=== PATIENT | female | born 1970 | race Caucasian/White ===

== ENCOUNTER → 2020-12-18 | Outpatient (CLI) | payer SELFPAY | END | disposition home or self-care (01) | LOC: LABWHC1 16:25 | PROVIDERS: ATTEND Orthopaedic Surgery | DX: T84.033A Mechanical loosening of internal left knee prosthetic joint, initial encounter (principal); T84.53XA Infection and inflammatory reaction due to internal right knee prosthesis, initial encounter | CPT/HCPCS: 36415; 85379; 85652; 86140 ==

== ENCOUNTER → 2020-12-31 | Outpatient (CLI) | payer OTHER | END | disposition home or self-care (01) | LOC: LABPAT 15:19 | PROVIDERS: ATTEND Orthopaedic Surgery | DX: Z53.9 Procedure and treatment not carried out, unspecified reason (principal) ==

== ENCOUNTER 2021-01-11 10:52 | Inpatient (IN) | payer OTHER ==
[2021-01-08 16:03] VITALS: BMI 44.6
[~2021-01-11 10:52] MED LIST: ACETAMINOPHEN TAB 500 MG TAB PO PRN; DEXAMETHASONE SOD PHOSPHATE 10 MG/ML 1 ML VIAL IV PRN; DEXAMETHASONE SOD PHOSPHATE 4 MG/ML 1 ML VIAL IV ONE; DOCUSATE 100 MG CAP PO PRN; FAMOTIDINE 20 MG/2 ML VIAL IVP PRN; HYDROmorphone 0.5 MG/0.5 ML SYRINGE IVP PRN; KETOROLAC 15 MG/ML 1 ML VIAL IVP PRN; MIDAZOLAM 2 MG/2 ML VIAL IV PRN; ONDANSETRON 4 MG/2 ML VIAL IVP ONE; ONDANSETRON 4 MG/2 ML VIAL IVP PRN; TRANEXAMIC ACID 1,000 MG in SODIUM CHLORIDE 0.9% 100 ML IVPB PRN; VANCOMYCIN 2,000 MG in SODIUM CHLORIDE 0.9% 500 ML 500 ML IVPB PRN; VANCOMYCIN IV PER PHARMACY 1 EACH MISC MISCELLANE PRN; oxyCODONE ER 10 MG TAB.ER.12H PO PRN
[2021-01-11] MEDS: LACTATED RINGERS 1,000 ML IV SCH (12:00)
[2021-01-11] MEDS ORDERED: KETOROLAC 15 MG/ML 1 ML VIAL IVP ONE ×2 (12:02→18:48)
[2021-01-11] MEDS ORDERED: KETOROLAC 30 MG/ML 1 ML VIAL ONE ×2 (12:11→18:46)
[2021-01-11] MEDS ORDERED: TRANEXAMIC ACID 1,000 MG in SODIUM CHLORIDE 0.9% 100 ML IVPB ONE (12:56)
[2021-01-11] MEDS ORDERED: LABETALOL 5 MG/ML VIAL MDV ONE (13:31)
[2021-01-11] MEDS ORDERED: SODIUM CHLORIDE 0.9% 100 ML BAG ONE (13:31)
[2021-01-11] MEDS ORDERED: ROCURONIUM 10 MG/ML (5 ML VIAL) IV ONE (13:31)
[2021-01-11] MEDS ORDERED: MIDAZOLAM 2 MG/2 ML VIAL ONE (13:31)
[2021-01-11] MEDS ORDERED: LIDOCAINE 1% INJ 10MG/ML (20 ML MDV) ONE (13:31)
[2021-01-11] MEDS ORDERED: fentaNYL (PF) 50 MCG/ML 2 ML AMP ONE (13:31)
[2021-01-11] MEDS ORDERED: hydrALAZINE HCL 20 MG/ML 1 ML VIAL ONE (13:31)
[2021-01-11] MEDS ORDERED: PHENYLEPHRINE-0.9% NACL SYG 1,000 MCG/10 ML SYRINGE ONE (13:31)
[2021-01-11] MEDS ORDERED: GLYCOPYRROLATE 0.2 MG/ML 2 ML VIAL ONE (13:31)
[2021-01-11] MEDS ORDERED: PROPOFOL 10 MG/ML 20 ML VIAL IV ONE (13:31)
[2021-01-11] MEDS ORDERED: ONDANSETRON 4 MG/2 ML VIAL ONE ×2 (13:31→18:41)
[2021-01-11] MEDS ORDERED: TRANEXAMIC ACID 1,000 MG/10 ML VIAL ONE (13:31)
[2021-01-11] MEDS ORDERED: NEOSTIGMINE 1 MG/ML 10 ML VIAL ONE (13:31)
[2021-01-11] MEDS ORDERED: SUCCINYLCHOLINE CHLORIDE 100 MG/5 ML SYR IV ONE (13:31)
[2021-01-11] MEDS ORDERED: LACTATED RINGERS 1,000 ML IV ONE (14:25)
[2021-01-11] MEDS: ROPIVACAINE/EPI/CLONIDINE/KET 50 ML SYRINGE MISCELLANE PRN ×3 (15:00→17:14)
[2021-01-11] MEDS ORDERED: VANCOMYCIN 1,000 MG VIAL MISCELLANE ONE ×3 (15:36→17:22)
[2021-01-11] MEDS ORDERED: VANCOMYCIN IV PER PHARMACY 1 EACH MISC MISCELLANE PRN (18:06)
[2021-01-11] MEDS ORDERED: NALOXONE 0.4 MG/ML 1 ML VIAL IV PRN (18:09)
--- NOTE | 2021-01-11 18:37 | XR ---
EXAMINATION TYPE: XR knee complete LT DATE OF EXAM: 01/11/2021 COMPARISON: NONE HISTORY: Postop TECHNIQUE: 2 views FINDINGS: There is a left knee prosthesis. I see no fracture nor dislocation. There is an anterior dr hicks. IMPRESSION: No complicating process seen.
[2021-01-11] MEDS ORDERED: ONDANSETRON 4 MG/2 ML VIAL IVP ONE (18:42)
[2021-01-11] MEDS ORDERED: HYDROmorphone 0.5 MG/0.5 ML SYRINGE IVP ONE (18:48)
[2021-01-11] MEDS ORDERED: HYDROmorphone 0.2 MG/1 ML SYRINGE IVP PRN (19:13)
[2021-01-11] MEDS ORDERED: HYDROmorphone 1 MG/ML 1 ML SYRINGE IVP PRN (19:13)
[2021-01-11] MEDS ORDERED: HYDROmorphone 0.5 MG/0.5 ML SYRINGE IVP PRN (19:13)
[2021-01-11] MEDS ORDERED: HYDROcodone/APAP 5-325MG 1 EACH TAB PO PRN ×2 (19:13)
[2021-01-11] MEDS ORDERED: diazePAM 2 MG TAB PO STA (20:12)
[2021-01-11] MEDS: HYDROmorphone 1 MG/ML 1 ML SYRINGE IVP PRN (20:31)
[2021-01-11] MEDS: PROCHLORPERAZINE INJ 10 MG/2 ML VIAL IVP PRN (23:06)
--- NOTE | 2021-01-12 00:05 | P.CONS ---
History of Present Illness - Reason for Consult Consult date: 01/11/21 medical management Requesting physician: Blue Montesinos - Chief Complaint scheduled left knee reviison - History of Present Illness 50 year old female with obesity comes in for left knee revision , post left total knee arthroplasty done August 2020, followed by a fall , and complicated with infection and loose orthosis . resulting in intractable pain for months with poor weight baring . patient otherwise, tolerated procedure, she is feeling emotional and anxious , but other husain reports that pain well tolerated, denies any chest pain or trouble breathing , she did not pass urine yet, but toelrating PO intake and denies any abd pain Review of Systems Pertinent positives as noted in HPI. All other systems were reviewed and are negative Past Medical History Past Medical History: Asthma, GERD/Reflux, Hearing Disorder / Deafness, Hypertension, Osteoarthritis (OA), Sleep Apnea/CPAP/BIPAP Additional Past Medical History / Comment(s): Poor hearing right ear. No CPAP use currently. "Recent dizziness and vomiting from anxiety and stress I think." History of Any Multi-Drug Resistant Organisms: MRSA Year Discovered:: 12/20 MDRO Source:: left knee Past Surgical History: Section, Hernia Repair, Joint Replacement, Orthopedic Surgery, Uterine Ablation Additional Past Surgical History / Comment(s): Bilateral knee replacements. Left knee surgery. Dental work. Umbilical hernia repair. Past Anesthesia/Blood Transfusion Reactions: No Reported Reaction Past Psychological History: Anxiety Smoking Status: Never smoker Past Alcohol Use History: None Reported Past Drug Use History: None Reported - Past Family History Mother Family Medical History: No Reported History Medications and Allergies Home Medications Medication Instructions Recorded Confirmed Type Cetirizine HCl [Zyrtec] 10 mg PO DAILY 01/08/21 01/11/21 History Desvenlafaxine Succinate [Pristiq] 100 mg PO QAM 01/08/21 01/11/21 History Hydrocodone/Acetaminphen - ?Mg 1 tab PO DIRECTED PRN 01/08/21 01/11/21 History Losartan Potassium 100 mg PO QAM 01/08/21 01/11/21 History Metoprolol Succinate (ER) [Toprol 25 mg PO QAM 01/08/21 01/11/21 History Xl] Montelukast Sodium [Singulair] 10 mg PO DAILY 01/08/21 01/11/21 History Mupirocin [Mupirocin 2%] 1 applic NASAL TID 01/08/21 01/11/21 History Pantoprazole [Protonix] 40 mg PO QAM 01/08/21 01/11/21 History amLODIPine BESYLATE 5 mg PO QAM 01/08/21 01/11/21 History hydroCHLOROthiazide 25 mg PO QAM 01/08/21 01/11/21 History Allergies Allergy/AdvReac Type Severity Reaction Status Date / Time bee venom protein (honey bee) Allergy Anaphylaxis Verified 01/11/21 12:04 Penicillins Allergy Rash/Hives Verified 01/11/21 12:04 Physical Exam Vitals: Vital Signs Temp Pulse Pulse Resp BP Pulse Ox 01/11/21 19:15 93 16 123/64 96 01/11/21 19:10 98.2 F 87 18 146/84 97 01/11/21 19:02 84 16 119/66 92 L 01/11/21 18:45 88 16 121/69 94 L 01/11/21 18:32 77 16 112/59 99 01/11/21 18:16 88 16 116/65 97 01/11/21 17:53 97.0 F L 89 18 123/62 98 01/11/21 11:56 97.5 F L 93 16 132/90 99 Intake and Output 01/11/21 01/11/21 01/12/21 14:59 22:59 06:59 Intake Total 1850 800 Output Total 550 Balance 1850 250 Intake: IV 1850 800 Output: Urine 350 Estimated Blood Loss 200 Other: Weight 137 kg 137 kg Constitutional: No acute distress, conversant, pleasant Eyes: Anicteric sclerae, moist conjunctiva, Pupils equal round reactive to light ENMT: NC/AT Oropharynx clear, no erythema, or exudates Neck: Supple, FROM, no masses, or JVD No carotid bruits No thyromegaly Lungs: Clear to auscultation Clear to percussion Normal respiratory effort, no accessory muscle use Cardiovascular: Heart regular in rate and rhythm, No murmurs, gallops, or rubs No peripheral edema Abdominal: Soft Nontender, no guarding, rebound or rigidity Abdomen moving with respiration Normoactive bowel sounds No hepatomegaly, No splenomegaly No palpable mass No abdominal wall hernia noted Skin: Normal temperature, tone, texture, turgor No induration No subcutaneous nodules No rash, lesions No ulcers Extremities: left leg in surgical dressing and boot. drain in place No digital cyanosis No clubbing Pedal pulses intact on right foot, left foot exposed toes with immediate capillary refill Radial pulses intact and symmetrical No calf tenderness Psychiatric: Alert and oriented to person, place and time Appropriate affect fair judgement Neuro Muscles Strength 5/5 in all 4 extremities except limited exam over left lower extremity with recent surgery Sensation to light touch grossly present throughout Cranial nerves II-XII grossly intact Lymphatics: no palpable cervical or supraclavicular , or inguinal lymph nodes Results CBC & Chem 7: 01/11/21 11:52 Assessment and Plan Assessment: s/p left knee revision, POD zero management per orthopedics, DVT PPX recs per ortho pain control hypertension , controlled resume home BP meds amlodipine , metoprolol , losartan obesity , life style modification anxiety PRN restoril GERD PPI symptomatic control of nausea and vomiting follow up CBC and BMP Thank you for allowing us to participate in the care of this patient. Do not hesitate to contact us with questions. Someone can be reached from the [facility] hospitalist group at all hours of the day at [phone].
[2021-01-12] MEDS: VANCOMYCIN 2,250 MG in SODIUM CHLORIDE 0.9% 500 ML 500 ML IVPB SCH ×3 (00:43→21:14)
[2021-01-12] MEDS: SENNOSIDES-DOCUSATE SODIUM 1 EACH TAB PO SCH ×2 (01:25→20:46)
[2021-01-12] MEDS: ASPIRIN 81 MG PO SCH ×3 (01:25→20:46)
[2021-01-12] MEDS: oxyCODONE-APAP 5-325MG 1 EACH TAB PO PRN ×4 (01:30→21:15)
[2021-01-12] MEDS: HYDROmorphone 1 MG/ML 1 ML SYRINGE IVP PRN ×2 (04:19→19:17)
[2021-01-12] MEDS: LACTATED RINGERS 1,000 ML IV SCH (05:53)
[2021-01-12] MEDS: METOPROLOL SUCCINATE (ER) 25 MG TAB.ER.24H PO SCH (08:25)
[2021-01-12] MEDS: MONTELUKAST 10 MG TAB PO SCH (08:25)
[2021-01-12] MEDS: PANTOPRAZOLE 40 MG TABLET PO SCH (08:25)
[2021-01-12] MEDS: amLODIPine 5 MG TAB PO SCH (08:25)
[2021-01-12] MEDS: LOSARTAN 50 MG TAB PO SCH (08:25)
[2021-01-12 09:12] LABS: ALT 14 U/L (4-34); AST 20 U/L (14-36); African American GFR (CKD) >90 (>60 ml/min/1.73 sqM); Albumin 3.3 g/dL (3.5-5.0); Albumin/Globulin Ratio 1.1; Alkaline Phosphatase 48 U/L (38-126); Anion Gap 9 mmol/L; Blood Urea Nitrogen 23 mg/dL (7-17); Calcium 8.7 mg/dL (8.4-10.2); Carbon Dioxide 26 mmol/L (22-30); Chloride 101 mmol/L (98-107); Glucose 105 mg/dL (74-99); Non-African American GFR(CKD) >90 (>60 ml/min/1.73 sqM); Potassium 3.3 mmol/L (3.5-5.1); Sodium 136 mmol/L (137-145); Total Bilirubin 0.4 mg/dL (0.2-1.3); Total Protein 6.3 g/dL (6.3-8.2)
[2021-01-12 09:17] LABS: Vancomycin,Random 18.3 ug/mL
[2021-01-12] MEDS ORDERED: POTASSIUM CHLORIDE ER 20 MEQ TAB.ER PO STA (11:30)
--- NOTE | 2021-01-12 13:13 | P.PN ---
Subjective Progress Note Date: 01/12/21 Patient seen and examined at bedside. Patient denies chest pain, shortness of breath, fever, or chills. Patient continues to have pain in her left knee s/p surgery and would like her medications adjusted. Vitals are stable. Potassium was at 3.3 and was replaced this morning. Objective - Vital Signs Vital signs: Vital Signs Temp 98.6 F 01/12/21 07:33 Pulse 91 01/12/21 07:33 Resp 16 01/12/21 05:10 BP 117/67 01/12/21 07:33 Pulse Ox 93 L 01/12/21 07:33 Intake & Output 01/11/21 01/12/21 01/12/21 18:59 06:59 18:59 Intake Total 2650 2400 Output Total 550 530 Balance 2100 1870 Weight 137 kg 137 kg Intake: IV 2650 Oral 2400 Output: Drainage 180 Left Knee 180 Urine 350 350 Estimated Blood Loss 200 Other: Voiding Method Toilet - Constitutional General appearance: Present: morbidly obese - EENT ENT: Present: hearing grossly normal - Respiratory Respiratory: bilateral: CTA - Cardiovascular Rhythm: regular Heart sounds: normal: S1, S2 - Gastrointestinal General gastrointestinal: Present: normal bowel sounds, soft - Integumentary Integumentary: Present: normal - Neurologic Neurologic: Present: CNII-XII intact - Musculoskeletal Musculoskeletal Comment(s): Left knee pain with palpation - Labs CBC & Chem 7: 01/12/21 07:51 Labs: Abnormal Lab Results - Last 24 Hours (Table) 01/11/21 01/12/21 Range/Units 14:36 07:51 Sodium 136 L (137-145) mmol/L Potassium 3.3 L (3.5-5.1) mmol/L BUN 23 H (7-17) mg/dL Glucose 105 H (74-99) mg/dL Albumin 3.3 L (3.5-5.0) g/dL Hep Bs Antibody Reactive A (Nonreactive) Rubella IgG Antibody 220.00 H (0.00-10.00) IU/mL Microbiology - Last 24 Hours (Table) 01/11/21 14:19 Fungal Culture - Preliminary Knee - Left 01/11/21 14:19 Anaerobic Culture - Preliminary Knee - Left 01/11/21 14:19 Anaerobic Culture - Preliminary Knee - Left 01/11/21 14:19 Anaerobic Culture - Preliminary Knee - Left 01/11/21 14:19 Fungal Culture - Preliminary Knee - Left 01/11/21 14:19 Fungal Culture - Preliminary Knee - Left Assessment and Plan Assessment: s/p left knee revision, POD one management per orthopedics, DVT PPX recs per ortho pain control hypertension , controlled resume home BP meds amlodipine , metoprolol , losartan obesity , life style modification anxiety PRN restoril GERD PPI symptomatic control of nausea and vomiting follow up CBC and BMP
[2021-01-12 13:52] LABS: Basophils # (A) 0.06 X 10*3/uL (0.00-0.10); Basophils % (A) 0.5 %; Eosinophils # (A) 0.02 X 10*3/uL (0.04-0.35); Eosinophils % (A) 0.2 %; HCT 29.9 % (37.2-46.3); Lymphocytes % (A) 21.2 %; MCH 25.9 pg (27.0-32.0); MCHC 30.1 g/dL (32.0-37.0); MCV 85.9 fL (80.0-97.0); Monocytes # (A) 0.79 X 10*3/uL (0.20-1.00); Monocytes % (A) 6.7 %; Neutrophils % (A) 71.1 %; Platelet Count 280 X 10*3/uL (140-440); RBC 3.48 X 10*6/uL (4.10-5.20); RDW 16.4 % (11.5-14.5)
[2021-01-12] MEDS: DESVENLAFAXINE SUCCINATE 50 MG TAB.ER.24H PO SCH (14:54)
[2021-01-12] MEDS: LORATADINE 10 MG TAB PO SCH (14:54)
[2021-01-12] MEDS ORDERED: GABAPENTIN 300 MG CAP PO STA (15:28)
--- NOTE | 2021-01-12 16:08 | P.PN ---
Subjective Progress Note Date: 01/12/21 Patient doing well this morning. Pain controlled. NO other complaints. Objective - Vital Signs Vital signs: Vital Signs Temp 98.7 F 01/12/21 14:00 Pulse 89 01/12/21 14:00 Resp 16 01/12/21 14:00 BP 117/73 01/12/21 14:00 Pulse Ox 94 L 01/12/21 14:00 Intake & Output 01/11/21 01/12/21 01/12/21 18:59 06:59 18:59 Intake Total 2650 2400 Output Total 550 530 Balance 2100 1870 Weight 137 kg 137 kg Intake: IV 2650 Oral 2400 Output: Drainage 180 Left Knee 180 Urine 350 350 Estimated Blood Loss 200 Other: Voiding Method Toilet - Exam Patient resting in bed. Appears comfortable. Left LE: dressing/knee immobilizer in place. Hemovac in place with good suction. Prevena wound VAC with good seal. Toes WWP with brisk CR. - Labs CBC & Chem 7: 01/12/21 07:51 01/12/21 07:51 Labs: Abnormal Lab Results - Last 24 Hours (Table) 01/11/21 01/12/21 01/12/21 Range/Units 14:36 07:51 07:51 WBC 11.80 H (4.50-10.00) X 10*3/uL RBC 3.48 L (4.10-5.20) X 10*6/uL Hgb 9.0 L (12.0-15.0) g/dL Hct 29.9 L (37.2-46.3) % MCH 25.9 L (27.0-32.0) pg MCHC 30.1 L (32.0-37.0) g/dL RDW 16.4 H (11.5-14.5) % Neutrophils # 8.40 H (1.80-7.70) X 10*3/uL Eosinophils # 0.02 L (0.04-0.35) X 10*3/uL Sodium 136 L (137-145) mmol/L Potassium 3.3 L (3.5-5.1) mmol/L BUN 23 H (7-17) mg/dL Glucose 105 H (74-99) mg/dL Albumin 3.3 L (3.5-5.0) g/dL Hep Bs Antibody Reactive A (Nonreactive) Rubella IgG Antibody 220.00 H (0.00-10.00) IU/mL Microbiology - Last 24 Hours (Table) 01/11/21 14:19 Fungal Culture - Preliminary Knee - Left 01/11/21 14:19 Anaerobic Culture - Preliminary Knee - Left 01/11/21 14:19 Anaerobic Culture - Preliminary Knee - Left 01/11/21 14:19 Anaerobic Culture - Preliminary Knee - Left 01/11/21 14:19 Fungal Culture - Preliminary Knee - Left 01/11/21 14:19 Fungal Culture - Preliminary Knee - Left Assessment and Plan Plan: POD #1 s/p first stage explant of infected TKA (done at outside hospital) and placement of articulating antibiotic spacer 1. WBAT left LE in knee immobilizer 2. Continue hemovac drain and Prevena wound VAC 3. PJI - cultures from aspiration showed staph epi sensitive to vanco. started on vanco and ceftriaxone. Antibiotic spacer placed with 4g of vanco and 1g of tobramycin per bag of cement (~4 bags used). ID consult placed awaiting recommendations and following cultures 4. Appreciate IM assistance with periop medical management 5. PT/OT 6. DVT prophy with ASA 81 mg BID 7. Discharge planning in process
[2021-01-13] MEDS: ONDANSETRON 4 MG/2 ML VIAL IVP PRN ×3 (01:49→17:15)
[2021-01-13] MEDS: HYDROmorphone 1 MG/ML 1 ML SYRINGE IVP PRN (06:08)
[2021-01-13] MEDS: LACTATED RINGERS 1,000 ML IV SCH (07:01)
[2021-01-13] MEDS: PANTOPRAZOLE 40 MG TABLET PO SCH (07:58)
[2021-01-13] MEDS: LOSARTAN 50 MG TAB PO SCH (07:58)
[2021-01-13] MEDS: GABAPENTIN 300 MG CAP PO SCH ×2 (07:58→20:20)
[2021-01-13] MEDS: oxyCODONE-APAP 5-325MG 1 EACH TAB PO PRN ×4 (07:59→21:29)
[2021-01-13] MEDS: amLODIPine 5 MG TAB PO SCH (08:00)
[2021-01-13] MEDS: ASPIRIN 81 MG PO SCH ×2 (08:00→20:18)
[2021-01-13] MEDS: MONTELUKAST 10 MG TAB PO SCH (08:00)
[2021-01-13] MEDS: LORATADINE 10 MG TAB PO SCH (08:01)
[2021-01-13] MEDS: METOPROLOL SUCCINATE (ER) 25 MG TAB.ER.24H PO SCH (08:01)
--- NOTE | 2021-01-13 08:39 | P.OP ---
Date of Procedure: 01/11/21 Preoperative Diagnosis: 1. 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 BMI 44 Postoperative Diagnosis: Same Procedure(s) Performed: 1. Complex removal of prosthesis (includes placement of antibiotic cement/spacer), left knee 2. Fabrication and insertion of nonbiodegradable drug delivery implant ARTICULATING SPACER, left knee 3. Irrigation and excisional debridement of subcutaneous tissue, muscle, and bone and thigh, knee, and tibia with radical synovectomy and 12 L saline pulsatile mechanical lavage, left knee 4. Application of negative pressure dressing, less than 50 cm, left knee Implants: 1. [place] triathlon PS size 5 femur 2. Jc triathlon TS polyethylene liner, size 5 3. 4 bags striker Simplex cement with tobramycin and an additional 4 g of vancomycin per bag of cement Anesthesia: JANE Surgeon: Blue Montesinos Stone Polisher Hand #1: Nicolasa Figueroa Estimated Blood Loss (ml): 150 IV fluids (ml): 1,200 Urine output (ml): 300 Pathology: other (Deep fluid and tissue cultures sent) Condition: stable Disposition: PACU Indications for Procedure: The patient is a very pleasant 50-year-old female with a medical history signifi cant for having a BMI of 44 who underwent a left primary total knee arthroplasty in [facility] in July 2020. Her postoperative course was complicated by a fall 2 weeks postoperatively resulting in dehiscence of the anterior incision. She was seen in the emergency department where local wound care was provided and she was sent home on antibiotics. 5 days later she underwent an irrigation and debridement with polyethylene liner exchange and retention of her implants by her surgeon in [place]. She's had progressively worsening pain and swelling in the knee since that time. She came to see me as a second opinion. Medically her knee was very swollen and had erythema surrounding the incision. She had a large effusion which was aspirated and 10 mL's of cloudy red fluid was sent to lab. Her x-rays showed loosening of the tibial component. Unfortunately her aspiration was not delivered in a timely fashion and a cell count was unavailable. Her cultures came back positive for Staphylococcus epidermidis. Her serum inflammatory markers including ESR, CRP, and d-dimer were all elevated. We attempted a repeat aspiration and only had a small amount of fluid was sent for cultures. I long discussion with Heide on treatment options. We discussed MSIS criteria for diagnosis of periprosthetic joint infection. While the patient didn't meet criteria for definitive infection the entire clinical picture was strongly suspicious. We discussed continued serial aspirations versus proceeding with a two-stage revision. Since the patient's pain was increasing, she had worsening erythema around her incision, she had loosening of the tibial baseplate on her x-ray, and in light of her positive cultures we both decided that it was very likely her total knee was infected and that we should proceed with a two-stage revision. We discussed the potential risks and complications of surgery including certainly not limited to risk from anesthesia, superficial infection, continued deep infection or PJI, damage to local blood vessels or nerves, intraoperative or postoperative fracture, damage to collateral ligaments, stiffness, instability, continued or worsened infection requiring further surgery, failure of two-stage treatment of periprosthetic joint infection, DVT, PE, other medical complications, possibility of requiring a fusion, extensor mechanism issues including fracture of the patella or avulsion of the patellar tendon, amputation, and possibly loss of life. The patient voiced her understanding of all this particularly continued or worsened infection and failure of the two-stage protocol. She understands that she is at high risk due to her elevated BMI. She provided her verbal and written consent to go forward with surgery. Operative Findings: On inspection of the knee prior to surgery there was erythema around the distal third of the incision with warmth to touch. The patient had full extension and flexion to 110 limited by posterior soft tissue. The knee was stable to varus and valgus stress in extension and 30 of flexion. There is evidence of mid flexion instability. The knee was stable to anterior and posterior drawer 90 of knee flexion. There was a large amount of cloudy red fluid consistent with deep infection within the knee joint. There is abundant inflamed tissue diffusely throughout the knee CONCERNING for infection. Description of Procedure: The patient was identified in preoperative holding and the correct left leg was marked with my initials. I reviewed the consent form with the patient and her friend. All of their questions were answered. The patient was then brought back to the operating room by anesthesia. She was given both vancomycin and Ancef for preoperative prophylaxis. A tourniquet was applied to the proximal aspect of the left thigh. A timeout was performed identifying the correct patient, operative extremity, and procedure. An exam under anesthesia was then conducted. The left leg was then prepped and draped in the standard sterile fashion. The leg was then elevated for 2 minutes, exsanguinated, and the tourniquet was inflated to 300 mmHg. I began by outlining the prior straight anterior incision to the knee extending the incision both proximally and distally to facilitate exposure. Skin incision was made with a scalpel and dissection was carried down carefully through subcutaneous tissue with a scalpel. The subcutaneous tissue appeared edematous and inflamed. The incision was extended proximally and ice dissected down to the first fascial layer. I elevated medial and lateral flaps deep to the fascia. The medial pole of the patella was marked out and incisions were made superiorly and inferior to facilitate closure and a standard medial parapatellar arthrotomy was performed sharply with a scalpel. A large amount of cloudy red fluid was encountered within the knee joint. This was aspirated and sent for cultures. A medial release around the posteromedial corner of the knee was performed sharply with a scalpel. The polyethylene liner was carefully removed. Attention was then turned to the femoral component which appeared relatively well fixed. Using a combination of reciprocating saws and osteotomes I debonded the implant from the cement and carefully removed the femoral implant with a bone tamp and mallet. There was minimal bone loss of the medial femoral condyle, but a small amount of bone loss from the posterior condyle of the lateral femoral condyle. Both collateral ligaments appeared intact. Attention was then turned to the tibial component. It appeared grossly loose. Using a reciprocating saw I carefully debonded the implant from the cement and remove the implant with a bone tap and mallet. Using a maestro bur I went through the cement pedestal distally and removed all cement from the tibia. A sagittal saw was used to make a 5 mm cut freehand on the proximal tibia to remove any bone touching the implant. The patellar button was then removed the cutting just deep to the implant through the pegs with a sagittal saw. The maestro bur was used to remove the pegs from the lug holes taking care to remove all foreign bodies. At this point I evaluated the wound. The tissue was markedly inflamed and appeared consistent with infection. A thorough debridement was performed of subcutaneous tissue, muscle, and bone. Both gutters were extensively debrided and tissue was sent for cultures. The posterior capsule of the knee was debrided carefully. Both the tibial and femoral canal were reamed for debridement. Once a radical synovectomy and debridement had been performed the wound was thoroughly irrigated. At this point I began trialing for articulating spacer. Using CR trials I sized the femur to size 5 with a trial implant. A box cutting guide was placed and using a reciprocating saw I cut a box and the distal femur. I sized the tibia to a size 5 baseplate. Trial implants with a 9 mm TS poly-and PS femur were implanted area and augments were placed distally and posteriorly. The knee felt relatively well balanced. All trial implants were removed. A thorough irrigation with 3 L of sterile saline was performed. The knee was then soaked for 3 minutes with a dilute Betadine solution. The wound was then irrigated using 3 L of sterile saline and pulsatile lavage. The knee was then soaked with a dilute chlorhexidine solution for 3 minutes. The wound was then irrigated with 3 L of sterile saline. A final soak using dilute peroxide for 3 minutes was performed. The knee was then irrigated with 3 L of sterile saline. At this point all participants scrubbed and broke scrub. New drapes were applied. The [place] covering was reprepped with a ChloraPrep swab. New instruments were used for implantation of the spacer. The wound was irrigated with 3 L of sterile saline. I then fashioned an independent dowel around a K wire for the femur using antibiotic cement. A Steinmann pin was then placed into the post of the polyliner and a dowel of cement was created using antibiotic cement. A final PS femur was dispensed and I used antibiotic cement to create augments consistent with our trials. Cement was then mixed with antibiotics and both the tibial poly-with Steinmann pin and femoral component were implanted loosely to facilitate later removal. This was allowed to set. Once the cement had set the knee had full extension and flexion to 120. The knee felt relatively well balanced. A final irrigation was performed with 3 L of sterile saline. A deep drain was applied. 2 g of vancomycin powder was placed in the wound. The capsule was loosely reapproximated using interrupted PDS stitches followed by running strata fix. The deep subcu,'s superficial subcu, and skin layer was closed with running monofilament sutures. The skin incision was reinforced using 2-0 nylon vertical mattress sutures. Once the incision was closed and verified that all instrument, sponge, and sharp counts were correct. An incisional wound VAC was placed and hooked up to its canister generating an excellent seal. The medium Hemovac was attached. The drapes were taken down and a web roll and [place] wrap was applied followed by a knee immobilizer. The patient was then awoken from her anesthetic, transferred to a gurney, and brought to recovery having tolerated the procedure well. Nicolasa Figueroa PA-C was required as a skilled entry level marketing assistant to the complexity of the surgical procedure Plan: The patient can weight-bear as tolerated on her left leg in a knee immobilizer. We will take her [place] wrap and web roll off on Thursday and remove her Hemovac drain. I will start her on vancomycin and ceftriaxone. An infectious disease consult has been placed. Internal medicine is been consulted for assistance with perioperative medical management.
[2021-01-13] MEDS: DESVENLAFAXINE SUCCINATE 50 MG TAB.ER.24H PO SCH (08:54)
--- NOTE | 2021-01-13 09:48 | P.PN ---
Subjective Patient seen and examined at bedside. Patient denies chest pain, shortness of breath, fever, or chills. Patient continues to have pain in her left knee s/p surgery. However, pain is slightly better than yesterday. Gabapentin initiated by ortho. Vitals are stable. DC planning to rehab likely once appropriate. Objective - Vital Signs Vital signs: Vital Signs Temp 97.9 F 01/13/21 07:39 Pulse 90 01/13/21 07:39 Resp 18 01/13/21 07:39 BP 114/73 01/13/21 07:39 Pulse Ox 93 L 01/13/21 07:39 Intake & Output 01/12/21 01/13/21 01/13/21 18:59 06:59 18:59 Intake Total 1080 Output Total 80 115 Balance 1000 -115 Intake: Oral 1080 Output: Drainage 80 115 Left Knee 80 115 Other: Voiding Method Toilet # Voids 3 2 - Exam General: [non toxic], [no distress], [appears at stated age] Derm: [warm], [dry] Head: [atraumatic], [normocephalic], [symmetric] Eyes: [EOMI], [no lid lag], [anicteric sclera] Mouth: [no lip lesion], [mucus membranes moist] Cardiovascular: [S1S2 reg], [no murmur], [positive posterior tibial pulse bilateral], Lungs: [CTA bilateral], [no rhonchi, no rales] , [no accessory muscle use] Abdominal: [soft], [ nontender to palpation], [no guarding], [no appreciable organomegaly] Ext: [no gross muscle atrophy], [left knee edema and pain with palpation decreased ROM], [no contractures] Neuro: [ CN II-XI grossly intact], [no focal neuro deficits] Psych: [Alert], [oriented], [appropriate affect] - Labs CBC & Chem 7: 01/12/21 07:51 01/12/21 07:51 Labs: Abnormal Lab Results - Last 24 Hours (Table) 01/12/21 Range/Units 07:51 WBC 11.80 H (4.50-10.00) X 10*3/uL RBC 3.48 L (4.10-5.20) X 10*6/uL Hgb 9.0 L (12.0-15.0) g/dL Hct 29.9 L (37.2-46.3) % MCH 25.9 L (27.0-32.0) pg MCHC 30.1 L (32.0-37.0) g/dL RDW 16.4 H (11.5-14.5) % Neutrophils # 8.40 H (1.80-7.70) X 10*3/uL Eosinophils # 0.02 L (0.04-0.35) X 10*3/uL Assessment and Plan Assessment: s/p left knee revision, POD one management per orthopedics, DVT PPX recs per ortho pain control hypertension , controlled resume home BP meds amlodipine , metoprolol , losartan obesity , life style modification anxiety Prestiq restarted yesterday PRN restoril GERD PPI symptomatic control of nausea and vomiting follow up CBC and BMP AM labs pending PT/OT patient will likey be going to a rehab facility upon discharge
--- NOTE | 2021-01-13 10:47 | P.PN ---
Subjective Progress Note Date: 01/13/21 Principal diagnosis: Infected total left knee arthroplasty. Status post stage I revision total left knee. This is a pleasant 50-year-old female who is postop day #2 status post stage I revision total left knee arthroplasty for infection. She has no new complaints or concerns today. Her vital signs are stable. She's had approximately 375 mL of fluid drained from the Hemovac in the last 24 hours. Objective - Vital Signs Vital signs: Vital Signs Temp 97.9 F 01/13/21 07:39 Pulse 90 01/13/21 07:39 Resp 18 01/13/21 07:39 BP 114/73 01/13/21 07:39 Pulse Ox 93 L 01/13/21 07:39 Intake & Output 01/12/21 01/13/21 01/13/21 18:59 06:59 18:59 Intake Total 1080 Output Total 80 115 Balance 1000 -115 Intake: Oral 1080 Output: Drainage 80 115 Left Knee 80 115 Other: Voiding Method Toilet # Voids 3 2 - Exam This is a pleasant 50-year-old female in no acute distress. She is alert and oriented 3. Exam of the left knee reveals that her Hemovac is in place. Her provena is in place. Her surrounding soft tissue no erythema or ecchymosis. Mild soft tissue swelling. The patient is apprehensive with knee flexion at this time. She is able to straight leg raise independently and hold her knee in extension for more than 10 seconds. Full foot and ankle motion without difficulty or pain. Neurovascular status to the lower extremities intact. - Labs CBC & Chem 7: 01/12/21 07:51 01/12/21 07:51 Labs: Abnormal Lab Results - Last 24 Hours (Table) 01/12/21 Range/Units 07:51 WBC 11.80 H (4.50-10.00) X 10*3/uL RBC 3.48 L (4.10-5.20) X 10*6/uL Hgb 9.0 L (12.0-15.0) g/dL Hct 29.9 L (37.2-46.3) % MCH 25.9 L (27.0-32.0) pg MCHC 30.1 L (32.0-37.0) g/dL RDW 16.4 H (11.5-14.5) % Neutrophils # 8.40 H (1.80-7.70) X 10*3/uL Eosinophils # 0.02 L (0.04-0.35) X 10*3/uL Assessment and Plan (1) Infection of total left knee replacement Current Visit: Yes Status: Acute Code(s): T84.54XA - INFECT/INFLM REACTION DUE TO INTERNAL LEFT KNEE PROSTH, INIT SNOMED Code(s): 821032563 (2) Status post revision of total replacement of left knee Current Visit: Yes Status: Acute Code(s): Z96.652 - PRESENCE OF LEFT ARTIFICIAL KNEE JOINT SNOMED Code(s): 431276107231730 Plan: The clinical findings are discussed with the patient. I have left a Hemovac in place today. Possible removal tomorrow. Her bulky dressing is removed. The wound VAC is left in place. She is placed back in a knee immobilizer. The patient is considering possible rehab placement. Continue current care.
[2021-01-13] MEDS ORDERED: VANCOMYCIN TROUGH DUE 1 EACH MISC MISCELLANE ONE (11:00)
[2021-01-13 11:57] LABS: Basophils % (A) 1 %; Eosinophils # (A) 0.7 k/uL (0-0.7); Eosinophils % (A) 9 %; HCT 27.8 % (34.0-46.0); Lymphocytes # (A) 1.6 k/uL (1.0-4.8); Lymphocytes % (A) 21 %; MCH 26.9 pg (25.0-35.0); MCHC 32.3 g/dL (31.0-37.0); MCV 83.3 fL (80.0-100.0); Mean Platelet Volume 9.1; Monocytes # (A) 0.5 k/uL (0-1.0); Monocytes % (A) 6 %; Neutrophils % (A) 63 %; Platelet Count 232 k/uL (150-450); RBC 3.33 m/uL (3.80-5.40); RDW 15.6 % (11.5-15.5); WBC 7.9 k/uL (3.8-10.6)
[2021-01-13] MEDS: VANCOMYCIN 2,250 MG in SODIUM CHLORIDE 0.9% 500 ML 500 ML IVPB SCH ×2 (12:28→21:29)
[2021-01-13 12:50] LABS: ALT 10 U/L (4-34); AST 18 U/L (14-36); African American GFR (CKD) >90 (>60 ml/min/1.73 sqM); Albumin 3.2 g/dL (3.5-5.0); Albumin/Globulin Ratio 1.1; Alkaline Phosphatase 48 U/L (38-126); Anion Gap 8 mmol/L; Blood Urea Nitrogen 14 mg/dL (7-17); Calcium 9.2 mg/dL (8.4-10.2); Carbon Dioxide 26 mmol/L (22-30); Chloride 109 mmol/L (98-107); Globulin 2.9 g/dL; Glucose 109 mg/dL (74-99); Non-African American GFR(CKD) >90 (>60 ml/min/1.73 sqM); Potassium 3.7 mmol/L (3.5-5.1); Sodium 143 mmol/L (137-145); Total Bilirubin 0.3 mg/dL (0.2-1.3); Total Protein 6.1 g/dL (6.3-8.2)
--- NOTE | 2021-01-13 13:00 | P.CONS ---
History of Present Illness - Reason for Consult Consult date: 01/12/21 left knee infection Requesting physician: Nicolasa Figueroa - Chief Complaint left knee non healing wound and infection x weeks - History of Present Illness History of present illness : Patient is 50-year-old female who is status post left knee replacement on August 25 2020 patient apparently did have a fall a few days after her left knee replacement that has lead to reopening of her incision and since then the patient seem to have a problem with a nonhealing of the wound and persistent pain for the patient has been followed by her primary surgeon subsequently the patient has been evaluated by orthopedic associate in this patient was noticed to have loosening of her left knee prosthesis and concerning for underlying infection nonhealing subsequently the patient was admitted to the hospital electively and the patient is a status post removal of the prosthesis I&D and placement of antibiotic spacer local cultures have been obtained which are currently pending patient has been hepatically treated with vancomycin and her Rocephin cultures obtained which are currently pending patient did have a outpatient culture done on 17 December which did grew staph epi infectious disease was consulted for further management of antibiotic therapy, patient has been complaining of pain to the left knee to be more of a dull aching to throbbing intensity about 6-7 out of 10 some relief with the pain medication patient denies any chest pain shortness with a cough no nausea vomiting abdominal pain no diarrhea Review of system: CONSTITUTIONAL: Positive for weakness denies fever. EYES: No complaint. ENT: No complaint. RESPIRATORY: No complaint. CARDIOVASCULAR: No complaint. GENITOURINARY: No complaint. GASTROINTESTINAL: No complaint. MUSCULOSKELETAL as per history of present illness. INTEGUMENTARY: No complaint. PSYCHOLOGIC: No complaint. ENDOCRINE: No complaint. NEUROLOGIC: No complaint. Past medical history : Reviewed, documented below Past surgical history : Reviewed, documented below Social history: Reviewed, documented below Medications: Reviewed, as documented below EXAMINATION: Vital sigans= Reviewed and documented below GENERAL DESCRIPTION: Middle-aged female lying in bed, no distress. No tachypnea or accessory muscle of respiration use. HEENT: Shows Pallor , no scleral icterus. Oral mucous membrane is dry. NECK: Trachea central, no thyromegaly. LUNGS: Unlabored breathing. Clear to auscultation anteriorly. No wheeze or cr ackle. HEART: S1, S2, regular rate and rhythm. ABDOMEN: Soft, no tenderness , guarding or rigidity EXTREMITIES: Left is currently dressed some swelling no significant redness SKIN: No rash, no masses palpable. NEUROLOGICAL: The patient is awake, alert, oriented x3, mood and affect normal. LABS AND RADIOLOGY: Reviewed results see below Assessment : Patient with left knee septic arthritis with underlying prosthetic knee with loosening of the prosthesis outpatient cultures been positive for staph epi has failed conservative therapy status post excisional arthroplasty and antibiotic spacer placement Plan: 1-vancomycin pharmacy to dose with a target trough of 15 while watching kidney function and Vanco trough closely. 2-patient with a PICC line outpatient antibiotic therapy depending upon final cultures 3-pain control We will follow on clinical condition and cultures to further adjust medication if needed Thank you for this consultation we will follow the patient along with you Past Medical History Past Medical History: Asthma, GERD/Reflux, Hearing Disorder / Deafness, Hypertension, Osteoarthritis (OA), Sleep Apnea/CPAP/BIPAP Additional Past Medical History / Comment(s): Poor hearing right ear. No CPAP use currently. "Recent dizziness and vomiting from anxiety and stress I think." History of Any Multi-Drug Resistant Organisms: MRSA Year Discovered:: 12/20 MDRO Source:: left knee Past Surgical History: Section, Hernia Repair, Joint Replacement, Orthopedic Surgery, Uterine Ablation Additional Past Surgical History / Comment(s): Bilateral knee replacements. Left knee surgery. Dental work. Umbilical hernia repair. Past Anesthesia/Blood Transfusion Reactions: No Reported Reaction Past Psychological History: Anxiety Smoking Status: Never smoker Past Alcohol Use History: None Reported Past Drug Use History: None Reported - Past Family History Mother Family Medical History: No Reported History Medications and Allergies Home Medications Medication Instructions Recorded Confirmed Type Cetirizine HCl [Zyrtec] 10 mg PO DAILY 01/08/21 01/11/21 History Desvenlafaxine Succinate [Pristiq] 100 mg PO QAM 01/08/21 01/11/21 History Hydrocodone/Acetaminphen - ?Mg 1 tab PO DIRECTED PRN 01/08/21 01/11/21 History Losartan Potassium 100 mg PO QAM 01/08/21 01/11/21 History Metoprolol Succinate (ER) [Toprol 25 mg PO QAM 01/08/21 01/11/21 History Xl] Montelukast Sodium [Singulair] 10 mg PO DAILY 01/08/21 01/11/21 History Mupirocin [Mupirocin 2%] 1 applic NASAL TID 01/08/21 01/11/21 History Pantoprazole [Protonix] 40 mg PO QAM 01/08/21 01/11/21 History amLODIPine BESYLATE 5 mg PO QAM 01/08/21 01/11/21 History hydroCHLOROthiazide 25 mg PO QAM 01/08/21 01/11/21 History Allergies Allergy/AdvReac Type Severity Reaction Status Date / Time bee venom protein (honey bee) Allergy Anaphylaxis Verified 01/11/21 12:04 Penicillins Allergy Rash/Hives Verified 01/11/21 12:04 Physical Exam Vitals: Vital Signs Temp Pulse Resp BP Pulse Ox 01/12/21 14:00 98.7 F 89 16 117/73 94 L 01/12/21 07:33 98.6 F 91 117/67 93 L 01/12/21 05:10 98.5 F 83 16 111/77 91 L 01/12/21 02:00 98.0 F 86 16 104/67 97 01/11/21 21:53 109 H 115/79 96 01/11/21 21:38 84 119/83 95 01/11/21 21:23 91 139/86 94 L 01/11/21 21:08 86 126/86 94 L 01/11/21 20:54 83 118/66 93 L 01/11/21 20:38 79 136/90 94 L 01/11/21 20:23 81 142/92 99 01/11/21 20:09 77 138/86 99 01/11/21 20:00 98.2 F 87 18 146/84 97 01/11/21 19:53 98.2 F 80 117/83 98 01/11/21 19:15 93 16 123/64 96 01/11/21 19:10 98.2 F 87 18 146/84 97 01/11/21 19:02 84 16 119/66 92 L 01/11/21 18:45 88 16 121/69 94 L 01/11/21 18:32 77 16 112/59 99 01/11/21 18:16 88 16 116/65 97 01/11/21 17:53 97.0 F L 89 18 123/62 98 Intake and Output 01/12/21 01/12/2101/12/21 06:59 14:59 22:59 Intake Total 1440 Output Total 530 Balance 910 Intake: Oral 1440 Output: Drainage 180 Left Knee 180 Urine 350 Other: Voiding Method Toilet Weight 137 kg Results CBC & Chem 7: 01/13/21 11:02 01/13/21 11:02 Labs: Abnormal Lab Results - Last 24 Hours (Table) 01/11/21 01/12/21 01/12/21 Range/Units 14:36 07:51 07:51 WBC 11.80 H (4.50-10.00) X 10*3/uL RBC 3.48 L (4.10-5.20) X 10*6/uL Hgb 9.0 L (12.0-15.0) g/dL Hct 29.9 L (37.2-46.3) % MCH 25.9 L (27.0-32.0) pg MCHC 30.1 L (32.0-37.0) g/dL RDW 16.4 H (11.5-14.5) % Neutrophils # 8.40 H (1.80-7.70) X 10*3/uL Eosinophils # 0.02 L (0.04-0.35) X 10*3/uL Sodium 136 L (137-145) mmol/L Potassium 3.3 L (3.5-5.1) mmol/L BUN 23 H (7-17) mg/dL Glucose 105 H (74-99) mg/dL Albumin 3.3 L (3.5-5.0) g/dL Hep Bs Antibody Reactive A (Nonreactive) Rubella IgG Antibody 220.00 H (0.00-10.00) IU/mL Microbiology - Last 24 Hours (Table) 01/11/21 14:19 Fungal Culture - Preliminary Knee - Left 01/11/21 14:19 Anaerobic Culture - Preliminary Knee - Left 01/11/21 14:19 Anaerobic Culture - Preliminary Knee - Left 01/11/21 14:19 Anaerobic Culture - Preliminary Knee - Left 01/11/21 14:19 Fungal Culture - Preliminary Knee - Left 01/11/21 14:19 Fungal Culture - Preliminary Knee - Left
[2021-01-13] MEDS: SENNOSIDES-DOCUSATE SODIUM 1 EACH TAB PO SCH (20:18)
[2021-01-13] MEDS: hydrOXYzine pamoate 25 MG CAP PO PRN (20:19)
--- NOTE | 2021-01-13 22:48 | PN ---
PROGRESS NOTE DATE OF SERVICE: 01/13/2021 REASON FOR FOLLOWUP: Left knee septic arthritis. INTERVAL HISTORY: The patient is afebrile. The patient is currently breathing comfortably. The patient denies having any chest pain or shortness of breath or cough. Pain to the left knee is currently controlled. No vomiting. No diarrhea. PHYSICAL EXAMINATION: Blood pressure is 126/64, pulse of 73, temperature 97.7. She is 95% on room air. General description is a middle-aged female lying in bed in no distress. Respiratory system: Unlabored breathing, clear to auscultation anteriorly. Heart S1, S2. Regular rate and rhythm. Abdomen soft, no tenderness. Left knee is currently dressed. No obvious drainage on the dressing. LABS: Hemoglobin 9, white count 7.9. Creatinine 0.67. Cultures are currently pending. DIAGNOSTIC IMPRESSION AND PLAN: Patient with left knee septic arthritis, status post excisional arthroplasty and antibiotic spacer placement. Patient is covered with vancomycin; to continue with discharge antibiotic on the basis of culture report. Continue supportive care. MMODL / IJN: [id number] /
[2021-01-14] MEDS: oxyCODONE-APAP 5-325MG 1 EACH TAB PO PRN ×4 (03:20→21:48)
[2021-01-14 07:42] LABS: African American GFR (CKD) >90 (>60 ml/min/1.73 sqM); Non-African American GFR(CKD) >90 (>60 ml/min/1.73 sqM)
[2021-01-14] MEDS: LACTATED RINGERS 1,000 ML IV SCH (08:03)
[2021-01-14] MEDS: LOSARTAN 50 MG TAB PO SCH (08:06)
[2021-01-14] MEDS: MONTELUKAST 10 MG TAB PO SCH (08:06)
[2021-01-14] MEDS: DESVENLAFAXINE SUCCINATE 50 MG TAB.ER.24H PO SCH (08:06)
[2021-01-14] MEDS: hydrOXYzine pamoate 25 MG CAP PO PRN ×3 (08:06→22:40)
[2021-01-14] MEDS: METOPROLOL SUCCINATE (ER) 25 MG TAB.ER.24H PO SCH (08:07)
[2021-01-14] MEDS: amLODIPine 5 MG TAB PO SCH (08:07)
[2021-01-14] MEDS: LORATADINE 10 MG TAB PO SCH (08:08)
[2021-01-14] MEDS: PANTOPRAZOLE 40 MG TABLET PO SCH (08:08)
[2021-01-14] MEDS: GABAPENTIN 300 MG CAP PO SCH ×3 (08:08→21:48)
[2021-01-14] MEDS: ASPIRIN 81 MG PO SCH ×2 (08:08→21:48)
[2021-01-14] MEDS: VANCOMYCIN 2,250 MG in SODIUM CHLORIDE 0.9% 500 ML 500 ML IVPB SCH ×2 (09:50→21:47)
[2021-01-14 11:04] LABS: Basophils # (A) 0.04 X 10*3/uL (0.00-0.10); Basophils % (A) 0.6 %; Eosinophils # (A) 0.83 X 10*3/uL (0.04-0.35); Eosinophils % (A) 11.8 %; HCT 26.3 % (37.2-46.3); HGB 7.9 g/dL (12.0-15.0); Lymphocytes # (A) 1.83 X 10*3/uL (0.90-5.00); MCH 25.5 pg (27.0-32.0); MCV 84.8 fL (80.0-97.0); Mean Platelet Volume 12.2 fL (9.5-12.2); Monocytes # (A) 0.61 X 10*3/uL (0.20-1.00); Monocytes % (A) 8.7 %; Neutrophils # (A) 3.71 X 10*3/uL (1.80-7.70); Neutrophils % (A) 52.6 %; Platelet Count 218 X 10*3/uL (140-440); RDW 15.8 % (11.5-14.5); WBC 7.04 X 10*3/uL (4.50-10.00)
--- NOTE | 2021-01-14 13:53 | P.PN ---
Subjective Progress Note Date: 01/14/21 This patient is a 50- year old female who is status-post stage I revision total left knee with articulating spacer on 01/11/21. Today is post-operative day #1. Patient is seen and examined bedside. She is up to the bedside chair. She states her pain is well controlled while in the chair. She is having significant pain with ambulation. Patient is voiding freely and tolerating her diet well. She notes mild nausea although it is controlled at this time. She denies chest pain, shortness of breath, nausea, vomiting. No new complaints today. She is planning for [facility] on discharge. Vital signs stable. Objective - Vital Signs Vital signs: Vital Signs Temp 97.8 F 01/14/21 08:00 Pulse 77 01/14/21 08:00 Resp 18 01/14/21 08:00 BP 137/87 01/14/21 08:00 Pulse Ox 94 L 01/14/21 08:02 Intake & Output 01/13/21 01/14/21 01/14/21 18:59 06:59 18:59 Output Total 60 Balance -60 Output: Drainage 60 Left Knee 60 - Exam On examination, patient is sitting in the bedside chair. She is alert and orientated x3. On inspection of the left knee, there is a knee immobilizer in place. Knee immobilizer is opened and reveals moderate swelling of the knee with a prevena wound vac and hemovac drain in place. Motor and sensory function intact of the left lower extremity. The left lower extremity is warm and well perfused. Calf is soft and non-tender. - Labs CBC & Chem 7: 01/14/21 06:49 01/14/21 06:49 Labs: Abnormal Lab Results - Last 24 Hours (Table) 01/14/21 Range/Units 06:49 RBC 3.10 L (4.10-5.20) X 10*6/uL Hgb 7.9 L (12.0-15.0) g/dL Hct 26.3 L (37.2-46.3) % MCH 25.5 L (27.0-32.0) pg MCHC 30.0 L (32.0-37.0) g/dL RDW 15.8 H (11.5-14.5) % Eosinophils # 0.83 H (0.04-0.35) X 10*3/uL Assessment and Plan Assessment: Status-post stage I left total knee revision of infected TKA (done at outside hospital) and placement of articulating antibiotic spacer on 01/11/21. Post- operative day #3. Plan: - Patient may WBAT on operative leg with a walker, and with assistance. - Physical therapy for gait and balance training. - Pain management as needed. - Keep wound vac in place. Will plan to remove hemovac drain today or tomorrow. - Will continue to follow intra-op cultures. Appreciate ID consult for antibiotic management. - Internal medicine for sidra-operative medical management. - Appreciate discharge to [facility] when cleared by internal medicine, ID.
--- NOTE | 2021-01-14 14:18 | P.PN ---
Subjective Progress Note Date: 01/14/21 Hospital course: Patient is a 50-year-old female with a past medical history of hypertension, anxiety, and GERD. She is currently admitted secondary to a prosthetic joint infection of left knee and is status post complex removal of prosthesis with placement of antibiotic spacer and left knee, fabrication and insertion of nonbiodegradable drug delivery implant articulating spacer to left knee, irrigation and excisional debridement of subcutaneous tissue, muscle, and bone of thigh, knee, and tibia with radial synovectomy and 12 L saline pulsatile mechanical lavage to left knee. patient admitted under orthopedic surgery team and we have been consulted to follow along for continued medical management throughout patient's hospitalization. Physical exam: patient seen and fully evaluated at the bedside this morning. Patient reports she is still having difficulties ambulating and placing pressure on the left kn ee. Patient is postoperative day 2 today. Patient states that she has had a decreased appetite secondary to stress and anxiety and being generally depressed over current hospitalization. Patient denies having any headache, lightheadedness, dizziness, chest pain, palpitations, shortness of breath, nausea, vomiting, or experiencing any numbness/tingling/weakness of her extremities. Postoperative dressing and brace in place to left knee with Hemovac drain and wound VAC. Vital signs reviewed and stable. General: Nontoxic, no distress and appears stated age. Derm: Skin warm and dry, normal coloration for ethnicity. Head: Atraumatic, normocephalic and symmetric. Eyes: EOMs intact, no lid lag, and anicteric sclera Mouth: no lip lesions, mucus membranes moist Cardiovascular: regular rate and rhythm with normal S1S2, no murmur, positive posterior tibial pulses bilaterally, and cap refill < 2 seconds. Lungs: Respirations even, regular, and unlabored on room air. Lungs CTA bilaterally, no rhonchi, no rales, no wheezing, and no accessory muscle usage. Abdominal: soft, nontender to palpation, no guarding, no appreciable organomegaly Ext: ROM intact. No gross muscle atrophy, no edema, no contractures Neuro: Speech clear, face symmetrical and CN II-XII grossly intact with no noted focal neuro deficits Psych: Alert and oriented to person, place, time, and situation. Appropriate and pleasant affect. Assessment and Plan of Care: Status post complex removal of prosthesis with placement of articulating spacer to left knee on 01/11/21 -Status post complex removal of prosthesis with placement of antibiotic spacer and left knee, fabrication and insertion of nonbiodegradable drug delivery impla nt articulating spacer to left knee, irrigation and excisional debridement of subcutaneous tissue, muscle, and bone of thigh, knee, and tibia with radial synovectomy and 12 L saline pulsatile mechanical lavage to left knee secondary to pain and a prosthetic joint infection -Management per primary admitting orthopedic team including pain management, DVT prophylaxis, weightbearing, and PT/OT. -Wound VAC and Hemovac care per primary admitting orthopedic team. Prosthetic joint infection of left knee status post complex removal of prosthesis with placement of antibiotic spacer -Preliminary cultures negative -Continue IV antibiotics with vancomycin and Rocephin pending further culture results. Hypertension Monitor vital signs and continue daily medication regimen withNorvasc, losartan and metoprolol. Anxiety and depression continue Pristiq with when necessary Restoril Morbid obesity with BMI of 44.6 kg/m Encourage outpatient weight management program and lifestyle modifications. GERD GI prophylaxis with Protonix 40 mg each morning. Thank you for allowing us to participate in the care of this pleasant patient. Do not hesitate to contact us with questions. Someone can be reached from the [facility] hospitalist group all hours of the day at [phone] or via [employer]. Objective - Vital Signs Vital signs: Vital Signs Temp 98.2 F 01/14/21 03:18 Pulse 85 01/14/21 03:18 Resp 16 01/14/21 03:18 BP 119/76 01/14/21 03:18 Pulse Ox 94 L 01/14/21 08:02 Intake & Output 01/13/21 01/14/21 01/14/21 18:59 06:59 18:59 Output Total 60 Balance -60 Output: Drainage 60 Left Knee 60 - Labs CBC & Chem 7: 01/14/21 06:49 01/14/21 06:49 Labs: Abnormal Lab Results - Last 24 Hours (Table) 01/13/21 01/13/21 Range/Units 11:02 11:02 RBC 3.33 L (3.80-5.40) m/uL Hgb 9.0 L (11.4-16.0) gm/dL Hct 27.8 L (34.0-46.0) % RDW 15.6 H (11.5-15.5) % Chloride 109 H (98-107) mmol/L Glucose 109 H (74-99) mg/dL Total Protein 6.1 L (6.3-8.2) g/dL Albumin 3.2 L (3.5-5.0) g/dL
--- NOTE | 2021-01-14 16:50 | PN ---
PROGRESS NOTE DATE OF SERVICE: 01/14/2021 REASON FOR FOLLOW UP: Left knee septic arthritis. INTERVAL HISTORY: Patient is afebrile. The patient is breathing comfortably. Still complaining of significant pain to the left knee area. No chest pain, shortness of breath. No cough. No abdominal pain. No diarrhea. PHYSICAL EXAMINATION: Blood pressure 137/87, pulse of 77, temperature 97.8. She is on room air. General description is a middle-aged female lying in bed in no distress. Respiratory system: Unlabored breathing, clear to auscultation anteriorly. Heart S1, S2. Regular rate and rhythm. Abdomen soft, no tenderness. Left knee is currently dressed. No obvious drainage on the dressing. LABS: creatinine 0.60. Cultures so far pending. DIAGNOSTIC IMPRESSION AND PLAN: Patient with left knee septic arthritis status post antibiotic culture and sensitivity. OR cultures currently pending that will determine discharge antibiotics. to arrange for Continue supportive care. MMODL / IJN: [id number] /
[2021-01-14] MEDS: SENNOSIDES-DOCUSATE SODIUM 1 EACH TAB PO SCH (21:48)
[2021-01-15] MEDS: LACTATED RINGERS 1,000 ML IV SCH
[2021-01-15] MEDS: oxyCODONE-APAP 5-325MG 1 EACH TAB PO PRN ×3 (07:21→19:41)
[2021-01-15] MEDS: METOPROLOL SUCCINATE (ER) 25 MG TAB.ER.24H PO SCH (07:23)
[2021-01-15] MEDS: DESVENLAFAXINE SUCCINATE 50 MG TAB.ER.24H PO SCH (07:23)
[2021-01-15] MEDS: ASPIRIN 81 MG PO SCH ×2 (07:23→19:41)
[2021-01-15] MEDS: LORATADINE 10 MG TAB PO SCH (07:24)
[2021-01-15] MEDS: LOSARTAN 50 MG TAB PO SCH (07:24)
[2021-01-15] MEDS: PANTOPRAZOLE 40 MG TABLET PO SCH (07:24)
[2021-01-15] MEDS: MONTELUKAST 10 MG TAB PO SCH (07:24)
[2021-01-15] MEDS: amLODIPine 5 MG TAB PO SCH (07:24)
[2021-01-15] MEDS: hydrOXYzine pamoate 25 MG CAP PO PRN ×3 (07:33→19:41)
[2021-01-15] MEDS: ONDANSETRON 4 MG/2 ML VIAL IVP PRN (07:34)
[2021-01-15 08:05] LABS: African American GFR (CKD) >90 (>60 ml/min/1.73 sqM); C Reactive Protein 6.2 mg/dL (<1.0); Non-African American GFR(CKD) >90 (>60 ml/min/1.73 sqM)
--- NOTE | 2021-01-15 09:25 | P.PN ---
Subjective Progress Note Date: 01/15/21 This patient is a 50- year old female who is status-post stage I revision total left knee with articulating spacer on 01/11/21. Today is post-operative day #4. Patient is seen and examined bedside. She states she is feeling great today with improvement in her pain. Patient is ambulating with a walker to the bathroom. Patient is tolerating her diet well with mild nausea. Patient is voiding without issue Patient denies chest pain, shortness of breath, fevers, chills. Vital signs stable. Objective - Vital Signs Vital signs: Vital Signs Temp 97.8 F 01/15/21 07:43 Pulse 82 01/15/21 07:43 Resp 20 01/15/21 07:43 BP 160/92 01/15/21 07:43 Pulse Ox 93 L 01/15/21 07:46 Intake & Output 01/14/21 01/15/21 01/15/21 18:59 06:59 18:59 Intake Total 1320 Output Total 350 Balance 970 Intake: Oral 1320 Output: Urine 350 Other: Voiding Method Toilet # Voids 3 3 - Exam On examination, patient is sitting up in the bed. She is alert and orientated x3. On inspection of the left knee, there is a knee immobilizer in place. Knee immobilizer is opened and reveals moderate swelling of the knee with a prevena wound vac and hemovac drain in place. Motor and sensory function intact of the left lower extremity. The left lower extremity is warm and well perfused. Calf is soft and non-tender. - Labs CBC & Chem 7: 01/14/21 06:49 01/15/21 06:47 Labs: Abnormal Lab Results - Last 24 Hours (Table) 01/11/21 01/14/21 01/15/21 Range/Units 14:36 06:49 06:47 RBC 3.10 L (4.10-5.20) X 10*6/uL Hgb 7.9 L (12.0-15.0) g/dL Hct 26.3 L (37.2-46.3) % MCH 25.5 L (27.0-32.0) pg MCHC 30.0 L (32.0-37.0) g/dL RDW 15.8 H (11.5-14.5) % Eosinophils # 0.83 H (0.04-0.35) X 10*3/uL C-Reactive Protein 6.2 H (<1.0) mg/dL Mumps Virus IgG Interp POSITIVE A (NEGATIVE) Rubeola IgG Ab Interp POSITIVE A (NEGATIVE) VZV IgG Interpret POSITIVE A (NEGATIVE) Microbiology - Last 24 Hours (Table) 01/11/21 14:19 Tissue Culture - Preliminary Knee - Left 01/11/21 14:19 Tissue Culture - Preliminary Knee - Left 01/11/21 14:19 Body Fluid Culture - Preliminary Knee - Left 01/11/21 14:19 Anaerobic Culture - Preliminary Knee - Left 01/11/21 14:19 Anaerobic Culture - Preliminary Knee - Left 01/11/21 14:19 Anaerobic Culture - Preliminary Knee - Left Assessment and Plan Assessment: Status-post stage I left total knee revision of infected TKA (done at outside hospital) and placement of articulating antibiotic spacer on 01/11/21. Post- operative day #4. Plan: - Patient may WBAT on operative leg with a walker, and with assistance. - Physical therapy for gait and balance training. - Pain management as needed. - Keep wound vac in place. Hemovac drain was removed bedside today. - Will continue to follow intra-op cultures. Appreciate ID consult for antibiotic management. - Internal medicine for sidra-operative medical management. - Appreciate discharge to [facility] when cleared by internal medicine, ID.
[2021-01-15] MEDS: VANCOMYCIN 2,250 MG in SODIUM CHLORIDE 0.9% 500 ML 500 ML IVPB SCH ×2 (10:52→20:30)
[2021-01-15] MEDS: GABAPENTIN 300 MG CAP PO SCH ×3 (10:52→19:41)
--- NOTE | 2021-01-15 16:17 | P.PN ---
Subjective Progress Note Date: 01/15/21 Hospital course: Patient is a 50-year-old female with a past medical history of hypertension, anxiety, and GERD. She is currently admitted secondary to a prosthetic joint infection of left knee and is status post complex removal of prosthesis with placement of antibiotic spacer and left knee, fabrication and insertion of nonbiodegradable drug delivery implant articulating spacer to left knee, irrigation and excisional debridement of subcutaneous tissue, muscle, and bone of thigh, knee, and tibia with radial synovectomy and 12 L saline pulsatile mechanical lavage to left knee. patient admitted under orthopedic surgery team and we have been consulted to follow along for continued medical management throughout patient's hospitalization. Physical exam: Patient seen and fully evaluated at the bedside this morning. Patient reports she is still having difficulties ambulating and placing pressure on the left k nee. Patient is postoperative day 3 today. Patient states that she is overall feeling much better in terms of her mental health today. Patient states she has had a lot of alone time with her thoughts and is really glad to be on the right track to recovery. She states pain is controlled while leg is at rest but significantly increases upon attempts at ambulation or with weightbearing. She continues to deny having any other complaints including headache, lightheadedness, dizziness, chest pain, palpitations, shortness of breath, nausea, vomiting, or experiencing any numbness/tingling/weakness of her extremities. Postoperative dressing and brace in place to left knee. Wound VAC in place. Patient assisted with placement of ice packs to anterior and posterior sides of me at this time. Hemovac drain was removed by orthosis morning. Vital signs reviewed and stable. General: Nontoxic, no distress and appears stated age. Derm: Skin warm and dry, normal coloration for ethnicity. Head: Atraumatic, normocephalic and symmetric. Eyes: EOMs intact, no lid lag, and anicteric sclera Mouth: no lip lesions, mucus membranes moist Cardiovascular: regular rate and rhythm with normal S1S2, no murmur, positive posterior tibial pulses bilaterally, and cap refill < 2 seconds. Lungs: Respirations even, regular, and unlabored on room air. Lungs CTA bilaterally, no rhonchi, no rales, no wheezing, and no accessory muscle usage. Abdominal: soft, nontender to palpation, no guarding, no appreciable organomegaly Ext: Movement and sensation intact. No gross muscle atrophy, no edema, no con tractures. Postoperative dressing and brace in place to left knee. Wound VAC in place. Neuro: Speech clear, face symmetrical and CN II-XII grossly intact with no noted focal neuro deficits Psych: Alert and oriented to person, place, time, and situation. Appropriate and pleasant affect. Assessment and Plan of Care: Status post complex removal of prosthesis with placement of articulating spacer to left knee on 01/11/21 -Status post complex removal of prosthesis with placement of antibiotic spacer and left knee, fabrication and insertion of nonbiodegradable drug delivery implant articulating spacer to left knee, irrigation and excisional debridement of subcutaneous tissue, muscle, and bone of thigh, knee, and tibia with radial synovectomy and 12 L saline pulsatile mechanical lavage to left knee secondary to pain and a prosthetic joint infection -Management per primary admitting orthopedic team including pain management, DVT prophylaxis, weightbearing, and PT/OT. -Wound VAC and Hemovac care per primary admitting orthopedic team. Prosthetic joint infection of left knee status post complex removal of prosthesis with placement of antibiotic spacer -Preliminary cultures negative -Continue IV antibiotics with vancomycin and Rocephin pending further culture results. Hypertension Monitor vital signs and continue daily medication regimen withNorvasc, losartan and metoprolol. Anxiety and depression Continue Pristiq with when necessary Restoril Morbid obesity with BMI of 44.6 kg/m Encourage outpatient weight management program and lifestyle modifications. GERD GI prophylaxis with Protonix 40 mg each morning. Thank you for allowing us to participate in the care of this pleasant patient. Do not hesitate to contact us with questions. Someone can be reached from the [facility] hospitalist group all hours of the day at [phone] or via perfect serve. Objective - Vital Signs Vital signs: Vital Signs Temp 97.8 F 01/15/21 07:43 Pulse 82 01/15/21 07:43 Resp 20 01/15/21 07:43 BP 160/92 01/15/21 07:43 Pulse Ox 93 L 01/15/21 07:46 Intake & Output 01/14/21 01/15/21 01/15/21 18:59 06:59 18:59 Intake Total 1320 Output Total 350 Balance 970 Intake: Oral 1320 Output: Urine 350 Other: Voiding Method Toilet # Voids 3 3 - Labs CBC & Chem 7: 01/14/21 06:49 01/15/21 06:47 Labs: Abnormal Lab Results - Last 24 Hours (Table) 01/11/21 01/14/21 01/15/21 Range/Units 14:36 06:49 06:47 RBC 3.10 L (4.10-5.20) X 10*6/uL Hgb 7.9 L (12.0-15.0) g/dL Hct 26.3 L (37.2-46.3) % MCH 25.5 L (27.0-32.0) pg MCHC 30.0 L (32.0-37.0) g/dL RDW 15.8 H (11.5-14.5) % Eosinophils # 0.83 H (0.04-0.35) X 10*3/uL C-Reactive Protein 6.2 H (<1.0) mg/dL Mumps Virus IgG Interp POSITIVE A (NEGATIVE) Rubeola IgG Ab Interp POSITIVE A (NEGATIVE) VZV IgG Interpret POSITIVE A (NEGATIVE) Microbiology - Last 24 Hours (Table) 01/11/21 14:19 Tissue Culture - Preliminary Knee - Left 01/11/21 14:19 Tissue Culture - Preliminary Knee - Left 01/11/21 14:19 Body Fluid Culture - Preliminary Knee - Left 01/11/21 14:19 Anaerobic Culture - Preliminary Knee - Left 01/11/21 14:19 Anaerobic Culture - Preliminary Knee - Left 01/11/21 14:19 Anaerobic Culture - Preliminary Knee - Left
[2021-01-15] MEDS: ACETAMINOPHEN TAB 325 MG TAB PO PRN (17:55)
[2021-01-15] MEDS: SENNOSIDES-DOCUSATE SODIUM 1 EACH TAB PO SCH (19:42)
--- NOTE | 2021-01-15 21:57 | PN ---
PROGRESS NOTE DATE OF SERVICE: 01/15/2021 REASON FOR FOLLOWUP: Left knee septic arthritis. INTERVAL HISTORY: The patient is afebrile. The patient is currently breathing comfortably. Denies having any chest pain or shortness of breath or cough. No abdominal pain. Pain to the left knee is currently controlled. PHYSICAL EXAMINATION: Blood pressure 113/72 with a pulse of 82, temperature of 98. She is 98% on room air. General description is a middle-aged female lying in bed in no distress. Respiratory system: Unlabored breathing, clear to auscultation anteriorly. Heart S1, S2. Regular rate and rhythm. Abdomen soft, no tenderness. Left knee is currently dressed. No obvious drainage on the dressing. LABS: Sed rate of 46, creatinine 0.63. DIAGNOSTIC IMPRESSION AND PLAN: Patient with left knee septic arthritis, status post excisional arthroplasty and antibiotic spacer placement. Patient is covered with Rocephin and vancomycin. Discharge medications on the basis of the final cultures. Continue with supportive care. MMODL / IJN: [id number] /
[2021-01-16] MEDS: LACTATED RINGERS 1,000 ML IV SCH (00:36)
[2021-01-16] MEDS: oxyCODONE-APAP 5-325MG 1 EACH TAB PO PRN ×3 (02:22→17:52)
[2021-01-16 08:57] LABS: HGB 8.9 gm/dL (11.4-16.0); Hypochromasia Slight; MCH 27.1 pg (25.0-35.0); MCHC 31.9 g/dL (31.0-37.0); MCV 84.9 fL (80.0-100.0); Mean Platelet Volume 9.3; Platelet Count 246 k/uL (150-450); RBC 3.29 m/uL (3.80-5.40); RDW 15.4 % (11.5-15.5)
[2021-01-16] MEDS ORDERED: VANCOMYCIN TROUGH DUE 1 EACH MISC MISCELLANE ONE (09:00)
[2021-01-16 09:27] LABS: African American GFR (CKD) >90 (>60 ml/min/1.73 sqM); Anion Gap 7 mmol/L; Blood Urea Nitrogen 9 mg/dL (7-17); Calcium 8.8 mg/dL (8.4-10.2); Carbon Dioxide 30 mmol/L (22-30); Chloride 103 mmol/L (98-107); Glucose 69 mg/dL (74-99); Magnesium 2.1 mg/dL (1.6-2.3); Non-African American GFR(CKD) 87 (>60 ml/min/1.73 sqM); Potassium 3.3 mmol/L (3.5-5.1); Sodium 140 mmol/L (137-145)
[2021-01-16] MEDS: hydrOXYzine pamoate 25 MG CAP PO PRN ×2 (09:35→17:53)
[2021-01-16] MEDS: METOPROLOL SUCCINATE (ER) 25 MG TAB.ER.24H PO SCH (09:36)
[2021-01-16] MEDS: LOSARTAN 50 MG TAB PO SCH (09:37)
[2021-01-16] MEDS: ONDANSETRON 4 MG/2 ML VIAL IVP PRN (09:38)
[2021-01-16] MEDS: amLODIPine 5 MG TAB PO SCH (09:42)
[2021-01-16] MEDS: GABAPENTIN 300 MG CAP PO SCH ×3 (09:42→20:04)
[2021-01-16] MEDS: PANTOPRAZOLE 40 MG TABLET PO SCH (09:43)
[2021-01-16] MEDS: ASPIRIN 81 MG PO SCH ×2 (09:44→20:04)
[2021-01-16] MEDS: LORATADINE 10 MG TAB PO SCH (09:44)
[2021-01-16] MEDS: MONTELUKAST 10 MG TAB PO SCH (09:45)
[2021-01-16] MEDS: DESVENLAFAXINE SUCCINATE 50 MG TAB.ER.24H PO SCH (09:45)
[2021-01-16] MEDS: VANCOMYCIN 2,250 MG in SODIUM CHLORIDE 0.9% 500 ML 500 ML IVPB SCH ×2 (11:12→20:04)
[2021-01-16] MEDS ORDERED: Potassium Replacement Protocol 1 EACH MISC MISCELLANE PRN (12:20)
--- NOTE | 2021-01-16 12:38 | P.PN ---
Subjective Progress Note Date: 01/16/21 Hospital course: Patient is a 50-year-old female with a past medical history of hypertension, anxiety, and GERD. She is currently admitted secondary to a prosthetic joint infection of left knee and is status post complex removal of prosthesis with placement of antibiotic spacer and left knee, fabrication and insertion of nonbiodegradable drug delivery implant articulating spacer to left knee, irrigation and excisional debridement of subcutaneous tissue, muscle, and bone of thigh, knee, and tibia with radial synovectomy and 12 L saline pulsatile mechanical lavage to left knee. patient admitted under orthopedic surgery team and we have been consulted to follow along for continued medical management throughout patient's hospitalization. Physical exam: Patient seen and fully evaluated at the bedside this morning. Patient tearful this morning reports feeling nauseous and having uncontrolled pain to left knee. Patient just returned to bed from working with physical therapy. Today patient is postoperative day 4. Patient states significant 10/10 pain and nausea and is being medicated by RN at this time. Morning labs showed mild hypokalemia with potassium of 3.3, replaced in improvement of hemoglobin to 8.9. Patient denies having any headache, lightheadedness, dizziness, chest pain, palpitations, s hortness of breath, vomiting, or experiencing any numbness/tingling/weakness in her extremities. Postoperative brace to left knee with wound VAC in place. Patient planning on discharge to [facility] for continued PT/OT once cleared by orthopedic team. Dr. Brown, infectious disease specialist recommending PICC line placement with plans for discharge on IV antibiotics: vancomycin. Vital signs reviewed and stable. General: Nontoxic, no distress and appears stated age. Derm: Skin warm and dry, normal coloration for ethnicity. Head: Atraumatic, normocephalic and symmetric. Eyes: EOMs intact, no lid lag, and anicteric sclera Mouth: no lip lesions, mucus membranes moist Cardiovascular: regular rate and rhythm with normal S1S2, no murmur, positive posterior tibial pulses bilaterally, and cap refill < 2 seconds. Lungs: Respirations even, regular, and unlabored on room air. Lungs CTA bilat erally, no rhonchi, no rales, no wheezing, and no accessory muscle usage. Abdominal: soft, nontender to palpation, no guarding, no appreciable organomegaly Ext: Movement and sensation intact. No gross muscle atrophy, no edema, no contractures. Postoperative dressing and brace in place to left knee. Wound VAC in place. Neuro: Speech clear, face symmetrical and CN II-XII grossly intact with no noted focal neuro deficits Psych: Alert and oriented to person, place, time, and situation. Appropriate and pleasant affect. Assessment and Plan of Care: Status post complex removal of prosthesis with placement of articulating spacer to left knee on 01/11/21 -Status post complex removal of prosthesis with placement of antibiotic spacer and left knee, fabrication and insertion of nonbiodegradable drug delivery imp lant articulating spacer to left knee, irrigation and excisional debridement of subcutaneous tissue, muscle, and bone of thigh, knee, and tibia with radial synovectomy and 12 L saline pulsatile mechanical lavage to left knee secondary to pain and a prosthetic joint infection -Management per primary admitting orthopedic team including pain management, DVT prophylaxis, weightbearing, and PT/OT. -Wound VAC care per primary admitting orthopedic team. Prosthetic joint infection of left knee status post complex removal of prosthesis with placement of antibiotic spacer -Preliminary cultures showing no growth at this time and Gram stain showing no growth after 4 days. -Continue IV antibiotics with vancomycin and Rocephin pending further culture results. Hypokalemia, replaced -We will continue to monitor with repeat a.m. labs and replace abnormal electrolyte values as needed. Hypertension Monitor vital signs and continue daily medication regimen withNorvasc, losartan and metoprolol. Anxiety and depression Continue Pristiq with when necessary Restoril Morbid obesity with BMI of 44.6 kg/m Encourage outpatient weight management program and lifestyle modifications. GERD GI prophylaxis with Protonix 40 mg each morning. Thank you for allowing us to participate in the care of this pleasant patient. Do not hesitate to contact us with questions. Someone can be reached from the [facility] hospitalist group all hours of the day at [phone] or via perfect serve. Objective - Vital Signs Vital signs: Vital Signs Temp 98.6 F 01/16/21 02:35 Pulse 74 01/16/21 02:35 Resp 18 01/15/21 13:43 BP 100/49 01/16/21 02:35 Pulse Ox 97 01/16/21 02:35 Intake & Output 01/15/21 01/16/21 01/16/21 18:59 06:59 18:59 Output Total 40 Balance -40 Output: Drainage 40 Left Knee 40 Other: Voiding Method Toilet # Voids 3 1 # Bowel Movements 0 - Labs CBC & Chem 7: 01/16/21 08:37 01/16/21 08:37 Labs: Abnormal Lab Results - Last 24 Hours (Table) 01/15/21 01/15/21 Range/Units 06:47 06:47 ESR 46 H (0-20) mm/hr C-Reactive Protein 6.2 H (<1.0) mg/dL Microbiology - Last 24 Hours (Table) 01/11/21 14:19 Gram Stain - Preliminary Knee - Left Body Fluid Culture - Preliminary 01/11/21 14:19 Gram Stain - Preliminary Knee - Left Tissue Culture - Preliminary 01/11/21 14:19 Gram Stain - Preliminary Knee - Left Tissue Culture - Preliminary
[2021-01-16] MEDS: POTASSIUM CHLORIDE ER 20 MEQ TAB.ER PO SCH ×2 (12:54→14:46)
--- NOTE | 2021-01-16 13:25 | P.PN ---
Subjective Progress Note Date: 01/16/21 This patient is a 50- year old female who is status-post stage I revision total left knee with articulating spacer on 01/11/21. Today is post-operative day #5. Patient is seen and examined bedside. Patient is feeling well today. She was up to the bathroom with her walker and was able to shower. Patient notes improvement in her pain with ambulation. She is tolerating her diet well. She reports mild nausea but it has been improving. Final intra- operative cultures showing no growth at 4 days. She denies chest pain, shortness of breath, vomiting, fevers, chills. Vital signs stable. Objective - Vital Signs Vital signs: Vital Signs Temp 98.1 F 01/16/21 08:31 Pulse 77 01/16/21 08:31 Resp 18 01/16/21 08:31 BP 116/69 01/16/21 08:31 Pulse Ox 95 01/16/21 08:31 Intake & Output 01/15/21 01/16/21 01/16/21 18:59 06:59 18:59 Output Total 40 Balance -40 Output: Drainage 40 Left Knee 40 Other: Voiding Method Toilet Toilet # Voids 3 1 # Bowel Movements 0 - Exam On examination, patient is sitting up in the bed. She is alert and orientated x3. On inspection of the left knee, there is a knee immobilizer in place. Knee immobilizer is opened and reveals moderate swelling of the knee with a prevena wound vac and hemovac drain in place. Motor and sensory function intact of the left lower extremity. The left lower extremity is warm and well perfused. Calf is soft and non-tender. - Labs CBC & Chem 7: 01/16/21 08:37 01/16/21 08:37 Labs: Abnormal Lab Results - Last 24 Hours (Table) 01/11/21 01/16/21 01/16/21 Range/Units 14:36 08:37 08:37 RBC 3.29 L (3.80-5.40) m/uL Hgb 8.9 L (11.4-16.0) gm/dL Hct 28.0 L (34.0-46.0) % Potassium 3.3 L (3.5-5.1) mmol/L Glucose 69 L (74-99) mg/dL TB Test (QFT) Gold Plus POSITIVE A (Negative) Microbiology - Last 24 Hours (Table) 01/11/21 14:19 Anaerobic Culture - Preliminary Knee - Left 01/11/21 14:19 Anaerobic Culture - Preliminary Knee - Left 01/11/21 14:19 Gram Stain - Final Knee - Left Tissue Culture - Final 01/11/21 14:19 Gram Stain - Final Knee - Left Body Fluid Culture - Final 01/11/21 14:19 Gram Stain - Final Knee - Left Tissue Culture - Final Assessment and Plan Assessment: Status-post stage I left total knee revision of infected TKA (done at outside hospital) and placement of articulating antibiotic spacer on 01/11/21. Post- operative day #5. Plan: - Patient may WBAT on operative leg with a walker, and with assistance. - Physical therapy for gait and balance training. - Pain management as needed. - Keep wound vac in place. Hemovac drain was removed bedside yesterday. - Final intra-operative cultures showing no growth at 4 days. Appreciate ID consult for antibiotic management. Dr. Brown is planning for PICC line placement today. - Internal medicine for sidra-operative medical management. - Appreciate discharge to [facility] when cleared by internal medicine, ID. Anticipate discharge tomorrow.
--- NOTE | 2021-01-16 15:45 | PN ---
PROGRESS NOTE DATE OF SERVICE: 01/16/2021 REASON FOR FOLLOWUP: Left knee septic arthritis. INTERVAL HISTORY: Patient is afebrile. The patient is currently breathing comfortably. The patient denies having any chest pain. No shortness of breath or cough. No abdominal pain. Overall pain and discomfort to the left knee is currently controlled. PHYSICAL EXAMINATION: Blood pressure 115/69, pulse of 77, temperature 98.1. She is 95% on room air. General description is a middle-aged female lying in bed in no distress. Respiratory system: Unlabored breathing, clear to auscultation anteriorly. Heart S1, S2. Regular rate and rhythm. Abdomen soft. Left knee is currently dressed. No obvious drainage on the dressing. LABS: Culture remains to be negative. White count normalized to 7.3 with a creatinine 0.80. Vancomycin trough is 19.0. DIAGNOSTIC IMPRESSION AND PLAN: Patient with left knee septic arthritis, status post excisional arthroplasty and antibiotic spacer placement. The patient outpatient cultures were positive for Staph epi that was done on 12/17/2020. Cultures done this admission have been negative. Possibly the same pathogen, would have recommended daptomycin because of the vancomycin to the Staph epi. However, the patient is going to care home and she cannot go to care home with daptomycin as per discussion with the family preservation caseworker. We will try vancomycin, pharmacy to dose target of 15, 6 weeks with weekly monitoring of CBC, BMP and sed rate and close outpatient followup. The patient's baseline noted of 46 and a CRP of 6.2, will be monitored weekly. Advised to follow up in the office in 2 weeks post discharge. Continue supportive care. MMODL / IJN: [id number] /
[2021-01-16] MEDS: SENNOSIDES-DOCUSATE SODIUM 1 EACH TAB PO SCH (20:04)
[2021-01-16] MEDS: PROCHLORPERAZINE INJ 10 MG/2 ML VIAL IVP PRN (20:33)
[2021-01-17] MEDS: oxyCODONE-APAP 5-325MG 1 EACH TAB PO PRN ×4 (00:29→14:59)
[2021-01-17] MEDS: LACTATED RINGERS 1,000 ML IV SCH (00:30)
[2021-01-17] MEDS: ACETAMINOPHEN TAB 325 MG TAB PO PRN (04:12)
[2021-01-17] MEDS: hydrOXYzine pamoate 25 MG CAP PO PRN ×3 (04:13→14:30)
[2021-01-17] MEDS: GABAPENTIN 300 MG CAP PO SCH ×2 (07:42→15:00)
[2021-01-17] MEDS: amLODIPine 5 MG TAB PO SCH (07:42)
[2021-01-17] MEDS: LOSARTAN 50 MG TAB PO SCH (07:44)
[2021-01-17] MEDS: DESVENLAFAXINE SUCCINATE 50 MG TAB.ER.24H PO SCH (07:44)
[2021-01-17] MEDS: ASPIRIN 81 MG PO SCH (07:45)
[2021-01-17] MEDS: LORATADINE 10 MG TAB PO SCH (07:45)
[2021-01-17] MEDS: MONTELUKAST 10 MG TAB PO SCH (07:45)
[2021-01-17] MEDS: PANTOPRAZOLE 40 MG TABLET PO SCH (07:45)
[2021-01-17] MEDS: METOPROLOL SUCCINATE (ER) 25 MG TAB.ER.24H PO SCH (07:46)
[2021-01-17 08:08] VITALS: RESP 18; TEMP 98.2
[2021-01-17 09:45] LABS: Basophils % (A) 1 %; Eosinophils # (A) 0.4 k/uL (0-0.7); Eosinophils % (A) 6 %; HCT 28.4 % (34.0-46.0); HGB 9.3 gm/dL (11.4-16.0); Lymphocytes # (A) 1.6 k/uL (1.0-4.8); Lymphocytes % (A) 21 %; MCH 27.1 pg (25.0-35.0); MCHC 32.6 g/dL (31.0-37.0); MCV 83.1 fL (80.0-100.0); Mean Platelet Volume 9.3; Monocytes # (A) 0.4 k/uL (0-1.0); Monocytes % (A) 6 %; Neutrophils % (A) 66 %; Platelet Count 281 k/uL (150-450); RBC 3.42 m/uL (3.80-5.40); RDW 15.6 % (11.5-15.5); WBC 7.7 k/uL (3.8-10.6)
[2021-01-17] MEDS: VANCOMYCIN 2,250 MG in SODIUM CHLORIDE 0.9% 500 ML 500 ML IVPB SCH ×2 (10:35→11:35)
[2021-01-17] MEDS ORDERED: LIDOCAINE 1% INJ 10MG/ML (20 ML MDV) ONE (10:46)
[2021-01-17] MEDS ORDERED: LIDOCAINE 1% INJ 10MG/ML (20 ML MDV) SQ ONE (11:11)
--- NOTE | 2021-01-17 11:24 | P.DS ---
Providers Date of admission: 01/14/21 12:21 Expected date of discharge: 01/17/21 Attending physician: Blue Montesinos Consults: 01/11/21 18:05 Consult Physician Routine Consulting Provider: Kayla Brown Consult Reason/Comments: left knee Do you want consulting provider notified?: Yes 01/11/21 19:15 Consult Physician Routine Consulting Provider: Shira Maharaj Consult Reason/Comments: medical management Do you want consulting provider notified?: Yes Primary care physician: Stated None Hospital Course: This is a 50-year-old female who has been followed in our office by Dr. Montesinos for continued complaints of left knee pain following a total knee arthroplasty in July 2020 at an outside hospital. Her left knee was aspirated in the office and cultures came back positive for Staphylococcus epidermis. Treatment options were discussed in detail with patient and Dr. Montesinos in the office. Patient elected to undergo a two-stage left total knee arthroplasty revision. Patient was seen pre-operatively by her primary care physician Dr. Walls and cleared for surgery. 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 The procedure was performed without complication or sequelae. The patient is doing fairly well postoperatively. Vital signs and labs are stable on postoperative day #6. Final intra-operative cultures showing no growth at [address] Brown infectious disease was consulted to manage antibiotics, and patient is currently awaiting placement of a PICC line. Dr. Brown is recommending 6 weeks of IV vancomycin. Patient was examined bedside today. Patient states she is overall doing well and her pain is controlled at this time. Her pain does increase with weight bearing on the left knee. She is able to ambulate with a walker to the bathroom and to the bedside chair. Patient is tolerating her diet well with mild nausea. She is voiding with issues.Patient is comfortable being discharged to rehab today. Patient denies chest pain, shortness of breath, vomiting, fevers, chills. On examination, the patient is sitting up in the bed in no apparent distress. She is alert and orientated 3. On inspection of the left knee, there is a knee immobilizer in place. Knee immobilizer is opened and reveals a wound vac in place. Wound vac is removed bedside. There is an incision of the anterior knee that is healing very well with no drainage. Motor and sensory function intact of the left lower extremity. The left lower extremity is warm and well-perfused. The calves are soft and non-tender to palpation bilaterally, no evidence of DVT. Incision was re-dressed with an Optifoam dressing. Patient is discharged to rehab today in good condition, pending medical clearance. Patient will follow-up with Dr. Montesinos in the office next week. Please see med rec for accurate list of discharge medication. Plan - Discharge Summary Discharge Rx Participant: Yes New Discharge Prescriptions: New Aspirin 81 mg PO BID 30 Days #60 tab oxyCODONE-APAP 5-325MG [Percocet 5-325 mg] 1 tab PO Q4HR PRN 7 Days #40 tab PRN Reason: Pain No Action Pantoprazole [Protonix] 40 mg PO QAM Metoprolol Succinate (ER) [Toprol Xl] 25 mg PO QAM Cetirizine HCl [Zyrtec] 10 mg PO DAILY amLODIPine BESYLATE 5 mg PO QAM Montelukast Sodium [Singulair] 10 mg PO DAILY Desvenlafaxine Succinate [Pristiq] 100 mg PO QAM hydroCHLOROthiazide 25 mg PO QAM Losartan Potassium 100 mg PO QAM Hydrocodone/Acetaminphen - ?Mg 1 tab PO DIRECTED PRN PRN Reason: Pain Mupirocin [Mupirocin 2%] 1 applic NASAL TID Discharge Medication List Cetirizine HCl [Zyrtec] 10 mg PO DAILY 01/08/21 [History] Desvenlafaxine Succinate [Pristiq] 100 mg PO QAM 01/08/21 [History] Hydrocodone/Acetaminphen - ?Mg 1 tab PO DIRECTED PRN 01/08/21 [History] Losartan Potassium 100 mg PO QAM 01/08/21 [History] Metoprolol Succinate (ER) [Toprol Xl] 25 mg PO QAM 01/08/21 [History] Montelukast Sodium [Singulair] 10 mg PO DAILY 01/08/21 [History] Mupirocin [Mupirocin 2%] 1 applic NASAL TID 01/08/21 [History] Pantoprazole [Protonix] 40 mg PO QAM 01/08/21 [History] amLODIPine BESYLATE 5 mg PO QAM 01/08/21 [History] hydroCHLOROthiazide 25 mg PO QAM 01/08/21 [History] Aspirin 81 mg PO BID 30 Days #60 tab 01/17/21 [Rx] oxyCODONE-APAP 5-325MG [Percocet 5-325 mg] 1 tab PO Q4HR PRN 7 Days #40 tab 01/17/21 [Rx] Follow up Appointment(s)/Referral(s): Kayla Brown MD [STAFF PHYSICIAN] - 1 Week Blue Montesinos MD [Medical Doctor] - 01/21/21 2:20 pm Ambulatory/Diagnostic Orders: Basic Metabolic Panel [LAB.AMB] Location: None Selected C Reactive Protein [LAB.AMB] Location: None Selected Complete Blood Count w/diff [LAB.AMB] Location: None Selected Erythrocyte Sedimentation Rate [LAB.AMB] Location: None Selected Activity/Diet/Wound Care/Special Instructions: Weight bear as tolerated on operative leg with a walker. Keep Optifoam dressing intact. Take pain medications as prescribed. Take aspirin as prescribed for blood clot prevention. Follow-up in the office in one week with Dr. Montesinos. Call the office with any questions or concerns, Discharge Disposition: TRANSFER TO SNF/ECF
--- NOTE | 2021-01-17 11:32 | IR ---
PICC LINE PLACEMENT: HISTORY: Infection requiring long-term antibiotic therapy PROCEDURE: Ultrasound and fluoroscopic guidance of PICC line placement. COMPLICATIONS: None ANESTHESIA: 1. 1% Lidocaine locally. FINDINGS/TECHNIQUE: The procedure was explained to the patient. The risks, complications, benefits and alternatives were discussed and any questions were answered. Informed consent was obtained. The patient was placed supine on the fluoroscopic table and prepped and draped in the usual sterile fash ion. Utilizing a 21 gauge needle and sonographic and fluoroscopic guidance, access in the left basi lic vein was achieved and there is placement of a 0.018 guidewire. The vein is patent. A 4-F sheath was placed over the guidewire. The guidewire and dilator were removed and a 4-F. PICC line was plac ed through the sheath with the tip at the level of the SVC. The sheath was removed, the catheter was flushed and sutured into position. The patient was stable throughout the procedure and remained sta ble upon discharge from the Department of Radiology. The vein puncture was patent under ultrasound. A jin scale image was obtained to document patency of the vein punctured. All elements of the maximal barrier technique were utilized. FLUOROSCOPY TIME: 0.1 minutes and one image submitted IMPRESSION: Successful PICC line placement under ultrasound and fluoroscopic guidance.
--- NOTE | 2021-01-17 13:25 | P.PN ---
Subjective Progress Note Date: 01/17/21 Hospital course: Patient is a 50-year-old female with a past medical history of hypertension, anxiety, and GERD. She is currently admitted secondary to a prosthetic joint infection of left knee and is status post complex removal of prosthesis with placement of antibiotic spacer and left knee, fabrication and insertion of nonbiodegradable drug delivery implant articulating spacer to left knee, irrigation and excisional debridement of subcutaneous tissue, muscle, and bone of thigh, knee, and tibia with radial synovectomy and 12 L saline pulsatile mechanical lavage to left knee. patient admitted under orthopedic surgery team and we have been consulted to follow along for continued medical management throughout patient's hospitalization. Physical exam: Patient seen and fully evaluated at the bedside this morning. Patient tearful again this morning reporting waxing and waning nausea along with persistent pain to left knee. She has been tolerating oral intake. Hypokalemia resolved after replacement. Hemoglobin stable at 9.3. Vital signs unremarkable. Patient denies having any other complaints or needs at this time including headache, lightheadedness, dizziness, chest pain, palpitations, shortness of breath, vomiting, or experiencing any numbness/tingling/weakness in her extremities. Postoperative brace with wound VAC remains in place to left knee. PICC line placed in left arm. Left knee aerobic preliminary culture showing positive for coagulase-negative staph. Vital signs reviewed and stable. General: Nontoxic, no distress and appears stated age. Derm: Skin warm and dry, normal coloration for ethnicity. Head: Atraumatic, normocephalic and symmetric. Eyes: EOMs intact, no lid lag, and anicteric sclera Mouth: no lip lesions, mucus membranes moist Cardiovascular: regular rate and rhythm with normal S1S2, no murmur, positive posterior tibial pulses bilaterally, and cap refill < 2 seconds. Lungs: Respirations even, regular, and unlabored on room air. Lungs CTA bilaterally, no rhonchi, no rales, no wheezing, and no accessory muscle usage. Abdominal: soft, nontender to palpation, no guarding, no appreciable organomegaly Ext: Movement and sensation intact. No gross muscle atrophy, no edema, no contractures. Postoperative dressing and brace in place to left knee. Wound VAC in place. Neuro: Speech clear, face symmetrical and CN II-XII grossly intact with no noted focal neuro deficits Psych: Alert and oriented to person, place, time, and situation. Appropriate and pleasant affect. Assessment and Plan of Care: Status post complex removal of prosthesis with placement of articulating spacer to left knee on 01/11/21 -Status post complex removal of prosthesis with placement of antibiotic spacer and left knee, fabrication and insertion of nonbiodegradable drug delivery implant articulating spacer to left knee, irrigation and excisional debridement of subcutaneous tissue, muscle, and bone of thigh, knee, and tibia with radial synovectomy and 12 L saline pulsatile mechanical lavage to left knee secondary to pain and a prosthetic joint infection -Management per primary admitting orthopedic team including pain management, DVT prophylaxis, weightbearing, and PT/OT. -Wound VAC care per primary admitting orthopedic team. Prosthetic joint infection of left knee status post complex removal of prosthesis with placement of antibiotic spacer -Left knee aerobic preliminary culture showing positive for coagulase-negative staph. -Gram stain/tissue cultures negative. -Continue IV antibiotics with vancomycin and Rocephin pending further culture results. Hypokalemia, resolved -We will continue to monitor with repeat a.m. labs and replace abnormal electrolyte values as needed. Hypertension, stable Monitor vital signs and continue daily medication regimen withNorvasc, losartan and metoprolol. Anxiety and depression Continue Pristiq with when necessary Restoril Morbid obesity with BMI of 44.6 kg/m Encourage outpatient weight management program and lifestyle modifications. GERD GI prophylaxis with Protonix 40 mg each morning. Thank you for allowing us to participate in the care of this pleasant patient. Do not hesitate to contact us with questions. Someone can be reached from the [facility] hospitalist group all hours of the day at [phone] or via perfect serve. Objective - Vital Signs Vital signs: Vital Signs Temp 98.0 F 01/17/21 01:03 Pulse 73 01/17/21 01:03 Resp 15 01/17/21 01:03 BP 112/75 01/17/21 01:03 Pulse Ox 97 01/17/21 01:03 Intake & Output 01/16/21 01/17/21 01/17/21 18:59 06:59 18:59 Other: Voiding Method Toilet - Labs CBC & Chem 7: 01/17/21 09:23 01/16/21 18:50 Labs: Abnormal Lab Results - Last 24 Hours (Table) 01/16/21 01/16/21 Range/Units 08:37 08:37 RBC 3.29 L (3.80-5.40) m/uL Hgb 8.9 L (11.4-16.0) gm/dL Hct 28.0 L (34.0-46.0) % Potassium 3.3 L (3.5-5.1) mmol/L Glucose 69 L (74-99) mg/dL Microbiology - Last 24 Hours (Table) 01/11/21 14:19 Anaerobic Culture - Preliminary Knee - Left 01/11/21 14:19 Anaerobic Culture - Preliminary Knee - Left 01/11/21 14:19 Gram Stain - Final Knee - Left Tissue Culture - Final 01/11/21 14:19 Gram Stain - Final Knee - Left Body Fluid Culture - Final 01/11/21 14:19 Gram Stain - Final Knee - Left Tissue Culture - Final
[2021-01-17 14:25] VITALS: BP 148/77; PULSE 85
--- NOTE | 2021-01-17 16:30 | PN ---
PROGRESS NOTE DATE OF SERVICE: 01/17/2021 REASON FOR FOLLOWUP: Left knee septic arthritis. INTERVAL HISTORY: Patient is afebrile, breathing comfortably. Denies any chest pain, shortness of breath, cough, abdominal pain, no worsening pain to the left knee area. PHYSICAL EXAMINATION: Blood pressure 141/81 with a pulse of 82, temperature 98.2. She is 99% on room air. General description is a middle-aged female lying in bed in no distress. Respiratory system: Unlabored breathing, clear to auscultation anteriorly. Heart S1, S2. Regular rate and rhythm. Abdomen is soft, no tenderness. Left knee is currently dressed up. No obvious drainage on the dressing. LABS: White count of 7.7, sed rate of 46. CRP 6.2. DIAGNOSTIC IMPRESSION AND PLAN: Patient with left knee septic arthritis. Culture showing coagulase-negative Staph which grew Staph epi on December 17 likely the same pathogen. Plan is for vancomycin, pharmacy to dose target of 15 for 6 weeks. Unfortunately cannot use the daptomycin because the as per discussion with the casey saw operator. Weekly CBC, CRP, sedimentation rate will be monitored and the patient to follow up in the office in a week or 2 from discharge. Continue supportive care. MMODL / IJN: [id number] /
== END 2021-01-17 15:45 | DRG 467 ==
LOC: OR 10:52 → 4SSUR 17:52 → OR 01-12 13:38 → OBSVTOIN 01-14 12:21
PROVIDERS: ADMIT Orthopaedic Surgery; ATTEND Orthopaedic Surgery
PROC: 0SRD0EZ Replacement of Left Knee Joint with Articulating Spacer, Open Approach (ICD-10-PCS; principal; 2021-01-13)
PROC: 0SBD0ZZ Excision of Left Knee Joint, Open Approach (ICD-10-PCS; principal; 2021-01-13)
PROC: 0SPD0JZ Removal of Synthetic Substitute from Left Knee Joint, Open Approach (ICD-10-PCS; principal; 2021-01-13)
PROC: 02HV33Z Insertion of Infusion Device into Superior Vena Cava, Percutaneous Approach (ICD-10-PCS; 2021-01-17)
DX: T84.54XA Infection and inflammatory reaction due to internal left knee prosthesis, initial encounter (principal); Z68.41 Body mass index [BMI] 40.0-44.9, adult; T84.033A Mechanical loosening of internal left knee prosthetic joint, initial encounter; E66.01 Morbid (severe) obesity due to excess calories; Z20.822 Contact with and (suspected) exposure to COVID-19; I10 Essential (primary) hypertension; F32.A Depression, unspecified; J45.998 Other asthma; G47.30 Sleep apnea, unspecified; F41.9 Anxiety disorder, unspecified; K21.9 Gastro-esophageal reflux disease without esophagitis; M19.90 Unspecified osteoarthritis, unspecified site; H91.90 Unspecified hearing loss, unspecified ear; Z79.899 Other long term (current) drug therapy; Z86.14 Personal history of Methicillin resistant Staphylococcus aureus infection; Z96.651 Presence of right artificial knee joint; Z87.19 Personal history of other diseases of the digestive system; Z87.42 Personal history of other diseases of the female genital tract; Z87.891 Personal history of nicotine dependence; Z98.891 History of uterine scar from previous surgery; Z98.890 Other specified postprocedural states; Z88.0 Allergy status to penicillin; Z91.030 Bee allergy status; Y83.1 Surgical operation with implant of artificial internal device as the cause of abnormal reaction of the patient, or of later complication, without mention of misadventure at the time of the procedure; Z82.49 Family history of ischemic heart disease and other diseases of the circulatory system; Z83.3 Family history of diabetes mellitus; Z83.49 Family history of other endocrine, nutritional and metabolic diseases; Z80.9 Family history of malignant neoplasm, unspecified
CPT/HCPCS: 36573; 80048; 80053; 80202; 82565; 83735; 84132; 85025; 85027; 85652; 86140; 86480; 86706; 86735; 86762; 86765; 86787; 87070; 87075; 87077; 87102; 87186; 87205; 87635; 94760

== ENCOUNTER → 2021-03-12 | Outpatient (CLI) | payer OTHER | END | disposition home or self-care (01) | LOC: LABWHC1 15:20 | PROVIDERS: ATTEND Orthopaedic Surgery | DX: T84.53XD Infection and inflammatory reaction due to internal right knee prosthesis, subsequent encounter (principal); M25.562 Pain in left knee; Z96.652 Presence of left artificial knee joint; Z47.1 Aftercare following joint replacement surgery; X58.XXXD Exposure to other specified factors, subsequent encounter | CPT/HCPCS: 36415; 85652; 86140 ==

== ENCOUNTER 2021-04-03 10:31 | Inpatient (IN) | payer OTHER ==
[2021-04-01 13:57] VITALS: BMI 44.3
[~2021-04-03 10:31] MED LIST changes: +LIDOCAINE 1% (10MG/ML) FOR IV START INTRADERMA PRN; -MIDAZOLAM 2 MG/2 ML VIAL IV PRN; +ROPIVACAINE/EPI/CLONIDINE/KET 50 ML SYRINGE MISCELLANE PRN; +TRANEXAMIC ACID 1,000 MG in SODIUM CHLORIDE 0.9% 100 ML IVPB ONE; +VANCOMYCIN 1,000 MG in SODIUM CHLORIDE 0.9% 250 ML IVPB PRN; -VANCOMYCIN 2,000 MG in SODIUM CHLORIDE 0.9% 500 ML 500 ML IVPB PRN; -VANCOMYCIN IV PER PHARMACY 1 EACH MISC MISCELLANE PRN
[2021-04-03] MEDS ORDERED: KETOROLAC 30 MG/ML 1 ML VIAL ONE (10:44)
[2021-04-03] MEDS: LACTATED RINGERS 1,000 ML IV SCH (10:46)
[2021-04-03] MEDS ORDERED: fentaNYL (PF) 50 MCG/ML 2 ML AMP IVP ONE (11:46)
[2021-04-03] MEDS ORDERED: MIDAZOLAM 2 MG/2 ML VIAL IVP ONE (11:46)
[2021-04-03] MEDS ORDERED: TRANEXAMIC ACID 1,000 MG/10 ML VIAL ONE (11:56)
[2021-04-03] MEDS ORDERED: LIDOCAINE 1% INJ 10MG/ML (20 ML MDV) ONE (11:56)
[2021-04-03] MEDS ORDERED: ONDANSETRON 4 MG/2 ML VIAL ONE (11:56)
[2021-04-03] MEDS ORDERED: SUCCINYLCHOLINE CHLORIDE 100 MG/5 ML SYR IV ONE (11:56)
[2021-04-03] MEDS ORDERED: ROPIVACAINE 5 MG/ML 30 ML VIAL ONE (11:56)
[2021-04-03] MEDS ORDERED: SODIUM CHLORIDE 0.9% (PF) 10 ML VIAL ONE (11:56)
[2021-04-03] MEDS ORDERED: HYDROmorphone (PF) 1 MG/ML ONE (11:56)
[2021-04-03] MEDS ORDERED: hydrALAZINE HCL 20 MG/ML 1 ML VIAL ONE (11:56)
[2021-04-03] MEDS ORDERED: SODIUM CHLORIDE 0.9% 100 ML BAG ONE (11:56)
[2021-04-03] MEDS ORDERED: NEOSTIGMINE 1 MG/ML 10 ML VIAL ONE (11:56)
[2021-04-03] MEDS ORDERED: MIDAZOLAM 2 MG/2 ML VIAL ONE (11:56)
[2021-04-03] MEDS ORDERED: LABETALOL 5 MG/ML VIAL MDV ONE (11:56)
[2021-04-03] MEDS ORDERED: fentaNYL (PF) 50 MCG/ML 2 ML AMP ONE (11:56)
[2021-04-03] MEDS ORDERED: GLYCOPYRROLATE 0.2 MG/ML 2 ML VIAL ONE (11:56)
[2021-04-03] MEDS ORDERED: PROPOFOL 10 MG/ML 20 ML VIAL IV ONE (11:56)
[2021-04-03] MEDS ORDERED: ROCURONIUM 10 MG/ML (5 ML VIAL) IV ONE (11:56)
[2021-04-03] MEDS ORDERED: LACTATED RINGERS 1,000 ML IV ONE (14:22)
[2021-04-03] MEDS ORDERED: VANCOMYCIN 1,000 MG VIAL MISCELLANE ONE (15:41)
[2021-04-03] MEDS ORDERED: SODIUM CHLORIDE 0.9% 50 ML with ceFAZolin 2,000 MG IV ONE ×2 (15:57)
[2021-04-03] MEDS ORDERED: NALOXONE 0.4 MG/ML 1 ML VIAL IV PRN (17:09)
[2021-04-03] MEDS ORDERED: HYDROmorphone 0.2 MG/1 ML SYRINGE IVP PRN (17:09)
[2021-04-03] MEDS ORDERED: HYDROmorphone 0.5 MG/0.5 ML SYRINGE IVP PRN (17:09)
--- NOTE | 2021-04-03 17:20 | P.ANPRN ---
Procedure Note - Anesthesia - Nerve Block Performed Left Adductor Canal Time Out Performed: Yes (11:46) Date of Procedure: 04/03/21 Procedure Start Time: :46 Procedure Stop Time: 11:56 Location of Patient: PreOp Indication: Acute Post-Operative Pain, Requested by Surgeon (Dr Montesinos) Sedation Type: Sedate with meaningful contact maintained Preparation: Sterile Prep Position: Supine Catheter: None Needle Types: Pajunk Needle Gauge: 21 Ultrasound used to visualize needle placement: Yes Ultrasound used to observe medication spread: Yes Injectate: 0.5% Ropivacaine (see comment for volume) (15cc + 5cc PF Normal saline) Blood Aspirated: No Pain Paresthesia on Injection Noted: No Resistance on Injection: Normal Image Stored and Saved: Yes Events: Uneventful and Well Tolerated
--- NOTE | 2021-04-03 17:21 | P.ANPRN ---
Procedure Note - Anesthesia - Nerve Block Performed Left iPack Time Out Performed: Yes Date of Procedure: 04/03/21 Procedure Start Time: 11:57 Procedure Stop Time: 12:06 Location of Patient: PreOp Indication: Acute Post-Operative Pain, Requested by Surgeon (Dr Montesinos) Sedation Type: Sedate with meaningful contact maintained Preparation: Sterile Prep Position: Supine Catheter: None Needle Types: Pajunk Needle Gauge: 21 Ultrasound used to visualize needle placement: Yes Ultrasound used to observe medication spread: Yes Injectate: 0.5% Ropivacaine (see comment for volume) (15cc + 5cc PF Normal saline) Blood Aspirated: No Pain Paresthesia on Injection Noted: No Resistance on Injection: Normal Image Stored and Saved: Yes Events: Uneventful and Well Tolerated
--- NOTE | 2021-04-03 17:38 | P.OP ---
Date of Procedure: 04/03/21 Preoperative Diagnosis: 1. Left total knee periprosthetic joint infection status post articulating antibiotic spacer placement 2. BMI 45.5 Postoperative Diagnosis: Same Procedure(s) Performed: 1. Reimplantation revision total knee arthroplasty as part of a staged procedure, complex, left knee 2. Removal, nonbiodegradable drug delivery implant, left knee 3. Application of negative pressure dressing, 30 cm Modifier 22 for increased procedural complexity This operation required significantly more time, work, and procedural complexity than a standard left primary or revision total joint arthroplasty. Specifically the prior traumatic changes and or surgical procedure left a significantly altered surgical field with resultant scar tissue, adhesions, and altered anatomy that required a longer and more difficult and complex surgical dissection. This patient required: Extensive exposure requiring meticulous and extensive debridement due to prior failed surgery and contractures, technically demanding removal of prior hardware, significantly prolonged operative time, and increased BMI (45.5) and challenging body habitus. All of the above result in a physically and mentally challenging operative procedure the in my professional opinion necessitates a 30% increase above the standard schedule fee. Implants: 1. Jc triathlon size #6 TS femoral component with 12 x 50 mm stem (10 mm augments distal radial and lateral and 5 mm augment posterior lateral) 2. Jc triathlon size #5 universal tibial baseplate with 12 x 50 mm stem 3. Size D Jc triathlon try titanium symmetric cone 4. [place] triathlon size #5, 16 mm TS polyethylene insert Anesthesia: JANE Surgeon: Blue Montesinos Supervisor [employer]: Nicolasa Figueroa Estimated Blood Loss (ml): 500 IV fluids (ml): 1,900 Urine output (ml): 550 Pathology: other (Multiple deep cultures) Condition: stable Disposition: PACU Indications for Procedure: The patient is a very pleasant 50-year-old female with a medical history significant for having a BMI 45.5 underwent a left primary total knee arthroplasty at an outside hospital in July 2020. Her postoperative course was complicated by a fall resulting in a traumatic arthrotomy. She was sent home from the emergency department without the wound being closed. She was taken by her surgeon for an irrigation, debridement, and retention of implants. She developed increasing pain and a large effusion. She came to see me for a second opinion. The patient had loosening of the tibial baseplate and met MSI S criteria for periprosthetic joint infection with 2 phenotypically similar positive cultures. The patient previously underwent removal of her index total knee replacement and had an articulating spacer with high dose antibiotic cement placed. She received 6 weeks of IV antibiotics. Once she had completed 6 weeks of antibiotics she underwent a 2 week holiday off antibiotics, had her knee reaspirated, and had inflammatory labs sent. All of this was negative. Clinically she felt better and her knee felt benign. We discussed reimplantation. I long discussion with pain in the office on the potential risks and complications of surgery including but certainly not limited to risks from anesthesia, superficial infection, deep infection, recurrent periprosthetic joint infection, damage to local blood vessels or nerves, instability, stiffness, patellofemoral complications, extensor mechanism complications, increased or worsened pain, and inability to regain preinjury level of function, and realized to satisfaction with her surgical outcome, need for further surgery, DVT, PE, other medical complications, knee effusion, amputation, and possibly . The patient understands that she is a much higher risk of having a complication due to her BMI 45.5. She provided both her verbal and written consent to go forward with surgery. Operative Findings: There was no sign of gross infection. There was a large serous effusion and fluid was sent for cultures. Multiple tissue samples were sent for culture from the gutters, and canals of both the tibia and femur. Description of Procedure: The patient was identified in preop holding and the correct left leg was marked with my initials. I reviewed the consent form with the patient and all of her questions were answered. The patient had a block by anesthesia. The patient was then brought back to the operating room by anesthesia. She was transferred onto the OR table where a general anesthetic, preoperative antibiotics, and TXA were given. A tourniquet was applied to the proximal aspect left leg. The right leg was secured to the table with foam and tape. A bolster was placed under the foot to allow 90 of knee flexion and a post was applied over the lateral aspect of the thigh area nonsterile drapes were applied. A presurgical scrub with chlorhexidine was performed. The patient's left leg was then prepped and draped in the standard sterile fashion. Prior to starting surgery timeout was performed identifying the correct patient, operative extremity, and procedure. The patient's leg was then elevated, exsanguinated with an Esmarch bandage, the tourniquet was inflated to 250 mmHg. I began by outlining and using the prior anterior incision over her left knee. Skin incision was made with a scalpel and dissection was carried down through subcutaneous tissue with a scalpel. The incision was extended 3 cm proximal to identify normal tissue planes. Once I dissected deep to the fascia I elevated b oth a medial and lateral subfascial flap. The extensor mechanism was found to be densely adherent to the superficial fascia. Was very difficult developing soft tissue planes. The underlying quadriceps and VMO was difficult to identify but the prior suture line along the medial parapatellar arthrotomy was visualized. A standard medial parapatellar arthrotomy was made along the prior scar. There was a large serous effusion. Fluid was sent for culture. A medial release around the posteromedial corner of the knee was performed. Tissue from the medial and lateral gutter were sent for cultures. An extensive synovectomy was then performed. The wound was thoroughly irrigated. The tibial polyethylene liner was removed. The femoral component was debonded, found to be loose, and easily removed. Antibiotic towels from the femur and tibia were both removed. A fresh cut of the tibia was made with a sagittal saw. I then reamed both the tibia and femur for debridement. The posterior aspect of the knee was debrided. The patella was debrided and found to be very thin. The wound was then thoroughly irrigated with 3 L of sterile saline. It was soaked with a chlorhexidine mix followed by a betadine mix. The wound was then thoroughly irrigated using 3 L of sterile saline and pulsatile lavage. At this point all instruments were passed off the dirty side. New drapes were placed. The wound was reprepped with DuraPrep. I changed gown, scrubbed and had a new gown and glove placed as I went to the clean side of the procedure. Attention was first turned to the tibia. I reamed up to a size D cone. A trial size D cone was placed. Using the patient's tibial tubercle as a guide I used an acorn bur to open the anastasiya for the tibial baseplate. A size 5 stemmed trial was placed. Attention was then turned to the femur. The condyles both appeared to be intact as well as the collaterals. I made flat cuts distally and posteriorly to place augments on. A box was cut for a TS implant. A size #6 implant with augments noted above and short stem was trialed. A 13 mm poly-was placed and the knee felt relatively stable. All trial implants were removed and the knee was again thoroughly irrigated. 3 bags of cement were mixed for the tibia with 2 g of vancomycin powder per bag of cement. A cement restrictor was placed distally. A cone was tapped into place. Cement was then pressurized into the canal and the tibial baseplate was gently tapped into place taking care to exhortation to the patient's tibial tubercle. All extra cement was removed and the baseplate was held in place until the cement had hardened. The final femoral stem had the above-mentioned augments placed in a short stem. The restrictor was placed and the femur was thoroughly irrigated. 3 bags of cement were mixed for the femur with 2 g of vancomycin powder per bag of cement. The femoral implant was then gently tapped into place and all extra cement was removed. A size 13 mm trial was placed and the leg was extended until the cement had fully hardened. On inspection of the patella was found to be very thin and I elected to not resurface the patella for fear of fracture. The 13 mm trial was removed and a 16 mm trial was placed. The knee had full extension and flexion and was stable to varus and valgus stress throughout the arc of motion. A final 16 millimeter poly-was placed. The tourniquet was let down. The extensor mechanism was reapproximated and a lateral release was performed using an outside in technique lateral bands of fibrous tissue were released taking care not to violate the synovium. The patella tracked midline. A deep drain was placed. All bleeders were controlled. 2 g of vancomycin powder was placed in the wound. The wound was then closed in layers using all monofilament suture. The skin incision was reinforced with 2-0 nylon sutures. Due to the patient's BMI, history of infection, and revision procedure an incisional wound VAC was placed over the incision which measured 30 cm. I verified that all instrument, sponge, and sharp counts were correct. A web roll and Z[place] wrap were applied. The patient was then carefully transferred off the operating room table, onto a gurney, and brought to recovery having tolerated the procedure well. In the recovery room x-rays appeared satisfactory with no obvious fractures. Nicolasa Figueroa PA-C was required as a skilled faculty research assistant due to the complexity of the surgery are patient positioning, surgical exposure, retraction, placement of implant, and closure of wound. Plan: The patient can weight-bear as tolerated on her left leg. We will leave her in a knee immobilizer for 24 hours to protect the soft tissue. She will receive 2 doses of postoperative antibiotics. Internal Sergei for perioperative medical management. I would like to consult infectious disease for recommendations on long-term oral suppression given her history of MRSPrince periprosthetic joint infection. I would like to treat her for at least 3-6 months. DVT prophylaxis with aspirin. Discharge planning in place.
--- NOTE | 2021-04-03 17:41 | XR ---
EXAMINATION TYPE: XR knee limited LT DATE OF EXAM: 04/03/2021 COMPARISON: 01/11/2021 HISTORY: Postop TECHNIQUE: 2 views FINDINGS: There is left knee prosthesis. Components are in anatomic position. There is revision of th e prosthesis compared to old exam. There is anterior drain. IMPRESSION: No complicating process seen.
[2021-04-03] MEDS: HYDROmorphone 1 MG/ML 1 ML SYRINGE IVP PRN (19:59)
[2021-04-03] MEDS: SENNOSIDES-DOCUSATE SODIUM 1 EACH TAB PO SCH (20:11)
[2021-04-03] MEDS: ASPIRIN 81 MG PO SCH (20:11)
[2021-04-03] MEDS: ceFAZolin 3 GM in SODIUM CHLORIDE 0.9% 100 ML IVPB SCH (23:14)
[2021-04-03] MEDS: hydrOXYzine pamoate 25 MG CAP PO PRN (23:19)
[2021-04-03] MEDS: ONDANSETRON 4 MG/2 ML VIAL IVP PRN (23:28)
[2021-04-04] MEDS: TRIMETHOBENZAMIDE 100 MG/ML 2 ML VIAL IM PRN ×2 (01:10→13:42)
[2021-04-04 02:06] LABS: Magnesium 1.7 mg/dL (1.6-2.3); Potassium 3.5 mmol/L (3.5-5.1)
[2021-04-04] MEDS ORDERED: Potassium Replacement Protocol 1 EACH MISC MISCELLANE PRN (03:18)
[2021-04-04] MEDS ORDERED: Magnesium Replacement Protocol 1 EACH MISC MISCELLANE PRN (03:20)
[2021-04-04] MEDS ORDERED: SCOPOLAMINE 1.5MG/72HR PATCH TRANSDERM ONE (03:30)
[2021-04-04] MEDS: POTASSIUM CHLORIDE 10 MEQ in WATER FOR INJECTION 1 100ML.BAG IVPB SCH ×4 (03:32→16:40)
[2021-04-04] MEDS ORDERED: METOCLOPRAMIDE 5 MG/ML 2 ML VIAL IVP PRN (04:16)
[2021-04-04] MEDS ORDERED: PROMETHAZINE SUPPOSITORY 25 MG SUPP RECTAL PRN (04:18)
[2021-04-04 05:13] LABS: Basophils % (A) 0 %; Eosinophils % (A) 0 %; HGB 9.9 gm/dL (11.4-16.0); Hypochromasia Slight; Lymphocytes # (A) 1.2 k/uL (1.0-4.8); Lymphocytes % (A) 9 %; MCH 29.9 pg (25.0-35.0); MCHC 35.3 g/dL (31.0-37.0); MCV 84.6 fL (80.0-100.0); Mean Platelet Volume 8.4; Monocytes # (A) 0.6 k/uL (0-1.0); Monocytes % (A) 4 %; Neutrophils % (A) 86 %; Platelet Count 255 k/uL (150-450); RBC 3.31 m/uL (3.80-5.40); RDW 15.1 % (11.5-15.5); WBC 13.9 k/uL (3.8-10.6)
[2021-04-04 05:27] LABS: African American GFR (CKD) >90 (>60 ml/min/1.73 sqM); Anion Gap 10 mmol/L; Blood Urea Nitrogen 24 mg/dL (7-17); Carbon Dioxide 25 mmol/L (22-30); Chloride 103 mmol/L (98-107); Glucose 176 mg/dL (74-99); Non-African American GFR(CKD) 81 (>60 ml/min/1.73 sqM); Potassium 3.3 mmol/L (3.5-5.1); Sodium 138 mmol/L (137-145)
[2021-04-04] MEDS: MAGNESIUM SULFATE-D5W PMX 1 GM in DEXTROSE/WATER 1 100ML.BAG IVPB SCH ×2 (07:44→10:41)
[2021-04-04] MEDS: ONDANSETRON 4 MG/2 ML VIAL IVP PRN ×2 (07:47→16:39)
[2021-04-04] MEDS ORDERED: diphenhydrAMINE 50 MG/ML 1 ML VIAL IVP STA (08:21)
[2021-04-04] MEDS: PANTOPRAZOLE 40 MG/10 ML VIAL IVP SCH (08:30)
[2021-04-04] MEDS: METOCLOPRAMIDE 5 MG/ML 2 ML VIAL IVP PRN ×2 (10:41→20:07)
[2021-04-04] MEDS: ceFAZolin 3 GM in SODIUM CHLORIDE 0.9% 100 ML IVPB SCH (10:42)
--- NOTE | 2021-04-04 10:54 | P.CONS ---
History of Present Illness - Reason for Consult Hypertension, depression - History of Present Illness Patient is a 50-year-old female admitted to the hospital for "totally. Prosthetic joint infection antibiotic spacer placed placement, revision and total knee arthroplasty on the left side, patient presently has a wound VAC/surgical drain. Patient was having nausea vomiting all night and patient is on multiple medications including Zofran, Tigan, along with the Reglan and Benadryl for extra pleural side effects patient was started on Ativan patient is still with nauseous today although much improved. Patient is also on Protonix. Patient does have history of hypertension on multiple blood pressure medications. Patient pain is fairly well-controlled patient does have bowel sounds did not move her bowel yet. REVIEW OF SYSTEMS: CONSTITUTIONAL: No fever, no malaise, no fatigue. HEENT: No recent visual problems or hearing problems. Denied any sore throat. CARDIOVASCULAR: No chest pain, orthopnea, PND, no palpitations, no syncope. PULMONARY: No shortness of breath, no cough, no hemoptysis. GASTROINTESTINAL: No diarrhea, no nausea, no vomiting, no abdominal pain. NEUROLOGICAL: No headaches, no weakness, no numbness. HEMATOLOGICAL: Denies any bleeding or petechiae. GENITOURINARY: Denies any burning micturition, frequency, or urgency. MUSCULOSKELETAL/RHEUMATOLOGICAL: Denies any joint pain, swelling, or any muscle pain. ENDOCRINE: Denies any polyuria or polydipsia. The rest of the 14-point review of systems is negative. PHYSICAL EXAMINATION: GENERAL: The patient is alert and oriented x3, not in any acute distress. Well developed, well nourished. Obese HEENT: Pupils are round and equally reacting to light. EOMI. No scleral icterus. No conjunctival pallor. Normocephalic, atraumatic. No pharyngeal erythema. No thyromegaly. CARDIOVASCULAR: S1 and S2 present. No murmurs, rubs, or gallops. PULMONARY: Chest is clear to auscultation, no wheezing or crackles. ABDOMEN: Soft, nontender, nondistended, normoactive bowel sounds. No palpable organomegaly. MUSCULOSKELETAL: No joint swelling or deformity. Left knee postsurgical abdominal with a wound VAC. EXTREMITIES: No cyanosis, clubbing, or pedal edema. NEUROLOGICAL: Gross neurological examination did not reveal any focal deficits. SKIN: No rashes. 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 -Severe nausea: Probably related to opiate pain medications. Management as mentioned above will add Ativan for nausea and Benadryl to avoid extrapyramidal Side effects from Zofran and Reglan -Hypokalemia secondary to vertigo thiazide potassium replacement 10-hypertension patient was started back on nimodipine, losartan, metoprolol hold off on hydrochlorothiazide temporarily, patient will need the potassium supplementation once she started back on hydrochlorothiazide -History of asthma without any acute exacerbation at this time [place]-gases visual reflux disease -Obesity, sleep apnea uses CPAP machine at home -osteoarthritis every Thursday joint and had knee replacement as mentioned above -Leukocytosis reactive secondary to surgery -Depression patient was started on Pristiq DVT prophylaxis: As per primary service Past Medical History Past Medical History: Asthma, GERD/Reflux, Hearing Disorder / Deafness, Hypertension, Osteoarthritis (OA), Sleep Apnea/CPAP/BIPAP Additional Past Medical History / Comment(s): Poor hearing right ear. No CPAP use currently. Past hx. of left knee infection. Uterine Ablation. 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 Left knee surgery. Dental work. Umbilical hernia repair. Past Anesthesia/Blood Transfusion Reactions: No Reported Reaction Past Psychological History: Anxiety Smoking Status: Never smoker Past Alcohol Use History: None Reported Past Drug Use History: None Reported - Past Family History Mother Family Medical History: No Reported History Medications and Allergies Home Medications Medication Instructions Recorded Confirmed Type Cetirizine HCl [Zyrtec] 10 mg PO DAILY 01/08/21 04/03/21 History Desvenlafaxine Succinate [Pristiq] 100 mg PO QAM 01/08/21 04/03/21 History Hydrocodone/Acetaminphen - ?Mg 1 tab PO DIRECTED PRN 01/08/21 04/03/21 History Losartan Potassium 100 mg PO QAM 01/08/21 04/03/21 History Metoprolol Succinate (ER) [Toprol 25 mg PO QAM 01/08/21 04/03/21 History XL] Montelukast Sodium [Singulair] 10 mg PO DAILY 01/08/21 04/03/21 History Mupirocin [Mupirocin 2% with 1 applic NASAL TID 01/08/21 04/03/21 History applicator] Pantoprazole [Protonix] 40 mg PO QAM 01/08/21 04/03/21 History amLODIPine BESYLATE 5 mg PO QAM 01/08/21 04/03/21 History hydroCHLOROthiazide 25 mg PO QAM 01/08/21 04/03/21 History Acetaminophen Tab [Tylenol] 650 mg PO Q6HR PRN tab 01/17/21 04/03/21 Rx Multivitamins, Thera [Multivitamin 1 tab PO DAILY 04/01/21 04/03/21 History (formulary)] [place]-3/Dha/Epa/Fish Oil [Fish Oil 1 each PO DAILY 04/01/21 04/03/21 History 500 mg Softgel] Gabapentin 300 mg PO TID 04/02/21 04/03/21 History Allergies Allergy/AdvReac Type Severity Reaction Status Date / Time bee venom protein (honey bee) Allergy Anaphylaxis Verified 04/03/21 10:47 Penicillins Allergy Rash/Hives Verified 04/03/21 10:47 acetaminophen [From Percocet] AdvReac Nausea & Verified 04/03/21 10:47 Vomiting oxycodone [From Percocet] AdvReac Nausea & Verified 04/03/21 10:47 Vomiting Physical Exam Vitals: Vital Signs Temp Pulse Pulse Resp BP BP Pulse Ox 04/04/21 08:00 98.7 F 81 18 161/93 99 04/04/21 02:00 98.1 F 78 17 156/89 99 04/03/21 21:58 98.8 F 90 107/71 92 L 04/03/21 21:43 81 113/74 90 L 04/03/21 21:28 89 102/71 90 L 04/03/21 21:13 80 132/86 95 04/03/21 20:58 94 121/81 95 04/03/21 20:43 82 127/86 94 L 04/03/21 20:28 102 H 146/93 98 04/03/21 20:13 86 117/77 91 L 04/03/21 19:00 90 18 04/03/21 17:45 95 18 142/80 98 04/03/21 17:30 96 17 130/74 98 04/03/21 17:15 77 14 116/63 97 04/03/21 17:03 98.9 F 91 17 127/69 97 04/03/21 12:00 75 16 126/77 98 04/03/21 11:01 97.6 F 72 18 164/68 95 Intake and Output 04/03/21 04/04/21 04/04/21 22:59 06:59 14:59 Intake Total 150 Output Total 50 550 Balance 100 -550 Intake: IV 150 Output: Urine 50 550 Stool 0 Other: Voiding Method Indwelling Catheter Weight 139.7 kg Results CBC & Chem 7: 04/04/21 04:46 04/04/21 04:46 Labs: Abnormal Lab Results - Last 24 Hours (Table) 04/03/21 04/04/21 04/04/21 Range/Units 11:27 04:46 04:46 WBC 13.9 H (3.8-10.6) k/uL RBC 3.31 L (3.80-5.40) m/uL Hgb 9.9 L (11.4-16.0) gm/dL Hct 28.0 L (34.0-46.0) % Neutrophils # 12.0 H (1.3-7.7) k/uL Potassium 3.3 L 3.3 L (3.5-5.1) mmol/L BUN 24 H (7-17) mg/dL Glucose 176 H (74-99) mg/dL Microbiology - Last 24 Hours (Table) 04/03/21 13:00 Gram Stain - Preliminary Knee - Left Wound Culture - Preliminary 04/03/21 13:00 Gram Stain - Preliminary Knee - Left Wound Culture - Preliminary 04/03/21 13:00 Gram Stain - Preliminary Knee - Left Tissue Culture - Preliminary 04/03/21 13:00 Gram Stain - Preliminary Knee - Left Tissue Culture - Preliminary 04/03/21 13:00 Gram Stain - Preliminary Knee - Left Tissue Culture - Preliminary 04/03/21 13:00 Anaerobic Culture - Preliminary Knee - Left 04/03/21 13:00 Anaerobic Culture - Preliminary Knee - Left 04/03/21 13:00 Anaerobic Culture - Preliminary Knee - Left
[2021-04-04] MEDS: LORazepam 2 MG/ML INJ IV PRN ×2 (11:46→18:01)
--- NOTE | 2021-04-04 11:48 | P.PN ---
Subjective Progress Note Date: 04/04/21 This patient is a 50- year female who is status-post revision left total knee arthroplasty as part of a staged procedure on 04/03/21. Today is post-operative day #1. Patient is seen and examined bedside. Patient's hemovac drain came out last night. Per nursing pressure dressing was applied, no active bleeding noted. Patient has been very nauseated throughout the evening and morning. Per internal medicine she has received Zofran, Tigan, Reglan, Benadryl as well as Protonix. Internal medicine is planning to replace potassium this morning. Patient states her knee pain is well-controlled at this time. She has been up with physical therapy to the bedside chair. Patient is tolerating crackers and soda at this time. Patient has no additional complaints. Vital signs stable. Objective - Vital Signs Vital signs: Vital Signs Temp 98.7 F 04/04/21 08:00 Pulse 81 04/04/21 08:00 Resp 18 04/04/21 08:00 BP 161/93 04/04/21 08:00 Pulse Ox 99 04/04/21 08:00 Intake & Output 04/03/21 04/04/21 04/04/21 18:59 06:59 18:59 Intake Total 1400 Output Total 550 550 Balance 850 -550 Weight 139.7 kg 139.7 kg Intake: IV 1400 Output: Urine 50 550 Stool 0 Estimated Blood Loss 500 Other: Voiding Method Indwelling Catheter Indwelling Catheter - Exam On examination, patient is sitting up in the bedside chair in no apparent distress. She is alert and orientated x3. On inspection of the left knee, there is a knee immobilizer, CHRIS wrap in place which is not removed today. Wound vac in place, good seal at this time. The foot is warm and well-perfused with brisk capillary refill. Motor and sensory function intact left lower extremity. - Labs CBC & Chem 7: 04/04/21 04:46 04/04/21 04:46 Labs: Abnormal Lab Results - Last 24 Hours (Table) 04/03/21 04/04/21 04/04/21 Range/Units 11:27 04:46 04:46 WBC 13.9 H (3.8-10.6) k/uL RBC 3.31 L (3.80-5.40) m/uL Hgb 9.9 L (11.4-16.0) gm/dL Hct 28.0 L (34.0-46.0) % Neutrophils # 12.0 H (1.3-7.7) k/uL Potassium 3.3 L 3.3 L (3.5-5.1) mmol/L BUN 24 H (7-17) mg/dL Glucose 176 H (74-99) mg/dL Microbiology - Last 24 Hours (Table) 04/03/21 13:00 Gram Stain - Preliminary Knee - Left Wound Culture - Preliminary 04/03/21 13:00 Gram Stain - Preliminary Knee - Left Wound Culture - Preliminary 04/03/21 13:00 Gram Stain - Preliminary Knee - Left Tissue Culture - Preliminary 04/03/21 13:00 Gram Stain - Preliminary Knee - Left Tissue Culture - Preliminary 04/03/21 13:00 Gram Stain - Preliminary Knee - Left Tissue Culture - Preliminary 04/03/21 13:00 Anaerobic Culture - Preliminary Knee - Left 04/03/21 13:00 Anaerobic Culture - Preliminary Knee - Left 04/03/21 13:00 Anaerobic Culture - Preliminary Knee - Left Assessment and Plan Assessment: Status-post revision left total knee arthroplasty as part of a staged procedure on 04/03/21. Post-operative day #1. Plan: - Weight bear as tolerated on operative leg with a walker. - Keep knee immobilizer in place for 24 hours. May remove this evening. - Do not remove wound vac. Our plan is to keep the current wound vac in place for 1-2 weeks. - Aspirin 81mg BID x 4 weeks for DVT prophylaxis. - Internal medicine for sidra-operative medical management. - Infectious disease has been consulted for antibiotic recommendations for long-term oral suppression, at least 3-6 months. - Case management has been consulted for discharge planning. Patient would like rehab on discharge.
[2021-04-04] MEDS ORDERED: HYDROmorphone 1 MG/ML 1 ML SYRINGE IVP PRN (12:01)
[2021-04-04] MEDS: ACETAMINOPHEN TAB 325 MG TAB PO PRN (14:06)
[2021-04-04] MEDS: DESVENLAFAXINE SUCCINATE 50 MG TAB.ER.24H PO SCH (14:59)
[2021-04-04] MEDS: METOPROLOL SUCCINATE (ER) 25 MG TAB.ER.24H PO SCH (14:59)
[2021-04-04] MEDS: ASPIRIN 81 MG PO SCH ×2 (14:59→20:07)
[2021-04-04] MEDS: LOSARTAN 50 MG TAB PO SCH (14:59)
[2021-04-04] MEDS: GABAPENTIN 300 MG CAP PO SCH ×3 (14:59→20:07)
[2021-04-04] MEDS: amLODIPine 5 MG TAB PO SCH (14:59)
[2021-04-04] MEDS: MUPIROCIN 2% OINT 22 GM TUBE NASAL SCH ×2 (15:22→20:08)
[2021-04-04] MEDS ORDERED: VANCOMYCIN IV PER PHARMACY 1 EACH MISC MISCELLANE PRN (16:16)
[2021-04-04] MEDS: LACTATED RINGERS 1,000 ML IV SCH ×4 (16:23→23:57)
[2021-04-04] MEDS ORDERED: VANCOMYCIN 2,500 MG in SODIUM CHLORIDE 0.9% 500 ML 500 ML IVPB ONE (17:30)
[2021-04-04] MEDS: HYDROmorphone 1 MG/ML 1 ML SYRINGE IVP PRN ×3 (18:09→23:35)
[2021-04-04] MEDS: SENNOSIDES-DOCUSATE SODIUM 1 EACH TAB PO SCH (20:07)
--- NOTE | 2021-04-04 23:19 | P.CONS ---
History of Present Illness - Reason for Consult Consult date: 04/04/21 antibiotic recomendations Requesting physician: Blue Montesinos - Chief Complaint nausea and vomiting x 1 day - History of Present Illness History of present illness : Patient is a 50-year-old female with a past medical history significant for left knee septic arthritis in this patient who is status post stage I procedure completed on 01/13/2021 culture positive for staph epidermidis and the patient completed 6 weeks of IV vancomycin in the local long term patient unfortunately was lost to follow-up and was never seen in the office for a follow-up patient now has been brought back to the hospital on April 03, 2021 for stage II procedure in this patient who is status post removal of the antibiotics spacer placement of artificial knee that was completed yesterday local cultures have been obtained which are currently pending patient has received perioperative cefazolin with consult to infectious disease last evening for antibiotic recommendation patient has normal evaluation has been complaining of nausea and vomiting) that has been going on since her surgery patient denies any abdominal pain, denies having any diarrhea or constipation pain to left knee is currently controlled denies any chest pain shortness of breath or cough patient on admission to the hospital was afebrile however she did have low-grade fever 100.0-100 and the patient had a white count of 13.9 with a left shift kidney function has been normal [place] PCR is negative Review of system: CONSTITUTIONAL: Positive for weakness along with the fever. EYES: No complaint. ENT: No complaint. RESPIRATORY: No complaint. CARDIOVASCULAR: No complaint. GENITOURINARY: No complaint. GASTROINTESTINAL: As per history of present illness. MUSCULOSKELETAL: As per history of present illness. INTEGUMENTARY: No complaint. PSYCHOLOGIC: No complaint. ENDOCRINE: No complaint. NEUROLOGIC: No complaint. Past medical history : Reviewed, documented below Past surgical history : Reviewed, documented below Social history: Reviewed, documented below Medications: Reviewed, as documented below EXAMINATION: Vital sigans= Reviewed and documented below GENERAL DESCRIPTION: Middle-aged female lying in bed, no distress. No tachypnea or accessory muscle of respiration use. HEENT: Shows Pallor , no scleral icterus. Oral mucous membrane is dry. NECK: Trachea central, no thyromegaly. LUNGS: Unlabored breathing. Clear to auscultation anteriorly. No wheeze or crackle. HEART: S1, S2, regular rate and rhythm. ABDOMEN: Soft, no tenderness , guarding or rigidity EXTREMITIES: Left knee is currently dressed in the OR dressing. SKIN: No rash, no masses palpable. NEUROLOGICAL: The patient is awake, alert, oriented x3, mood and affect normal. LABS AND RADIOLOGY: Reviewed results see below Assessment : Patient presented to hospital for a stage II procedure for removal of the antibiotic spacer and placement of left knee , which was completed yesterday now patient has been complaining of persistent nausea and vomiting no abdominal pain though did have a low-grade fever and elevated white count OR cultures are currently pending Plan: 1-blood cultures will be obtained 2-we will add empirically vancomycin pharmacy to dose while waiting for the OR cultures to be finalized We will follow on clinical condition and cultures to further adjust medication if needed Thank you for this consultation we will follow the patient along with you Past Medical History Past Medical History: Asthma, GERD/Reflux, Hearing Disorder / Deafness, H ypertension, Osteoarthritis (OA), Sleep Apnea/CPAP/BIPAP Additional Past Medical History / Comment(s): Poor hearing right ear. No CPAP use currently. Past hx. of left knee infection. Uterine Ablation. 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 Left knee surgery. Dental work. Umbilical hernia repair. Past Anesthesia/Blood Transfusion Reactions: No Reported Reaction Past Psychological History: Anxiety Smoking Status: Never smoker Past Alcohol Use History: None Reported Past Drug Use History: None Reported - Past Family History Mother Family Medical History: No Reported History Medications and Allergies Home Medications Medication Instructions Recorded Confirmed Type Cetirizine HCl [Zyrtec] 10 mg PO DAILY 01/08/21 04/03/21 History Desvenlafaxine Succinate [Pristiq] 100 mg PO QAM 01/08/21 04/03/21 History Hydrocodone/Acetaminphen - ?Mg 1 tab PO DIRECTED PRN 01/08/21 04/03/21 History Losartan Potassium 100 mg PO QAM 01/08/21 04/03/21 History Metoprolol Succinate (ER) [Toprol 25 mg PO QAM 01/08/21 04/03/21 History XL] Montelukast Sodium [Singulair] 10 mg PO DAILY 01/08/21 04/03/21 History Mupirocin [Mupirocin 2% with 1 applic NASAL TID 01/08/21 04/03/21 History applicator] Pantoprazole [Protonix] 40 mg PO QAM 01/08/21 04/03/21 History amLODIPine BESYLATE 5 mg PO QAM 01/08/21 04/03/21 History hydroCHLOROthiazide 25 mg PO QAM 01/08/21 04/03/21 History Acetaminophen Tab [Tylenol] 650 mg PO Q6HR PRN tab 01/17/21 04/03/21 Rx Multivitamins, Thera [Multivitamin 1 tab PO DAILY 04/01/21 04/03/21 History (formulary)] [place]-3/Dha/Epa/Fish Oil [Fish Oil 1 each PO DAILY 04/01/21 04/03/21 History 500 mg Softgel] Gabapentin 300 mg PO TID 04/02/21 04/03/21 History Allergies Allergy/AdvReac Type Severity Reaction Status Date / Time bee venom protein (honey bee) Allergy Anaphylaxis Verified 04/03/21 10:47 Penicillins Allergy Rash/Hives Verified 04/03/21 10:47 acetaminophen [From Percocet] AdvReac Nausea & Verified 04/03/21 10:47 Vomiting oxycodone [From Percocet] AdvReac Nausea & Verified 04/03/21 10:47 Vomiting Physical Exam Vitals: Vital Signs Temp Pulse Resp BP Pulse Ox 04/04/21 14:00 100.1 F H 94 18 108/65 99 04/04/21 08:00 98.7 F 81 18 161/93 99 04/04/21 02:00 98.1 F 78 17 156/89 99 04/03/21 21:58 98.8 F 90 107/71 92 L 04/03/21 21:43 81 113/74 90 L 04/03/21 21:28 89 102/71 90 L 04/03/21 21:13 80 132/86 95 04/03/21 20:58 94 121/81 95 04/03/21 20:43 82 127/86 94 L 04/03/21 20:28 102 H 146/93 98 04/03/21 20:13 86 117/77 91 L 04/03/21 19:00 90 18 04/03/21 17:45 95 18 142/80 98 04/03/21 17:30 96 17 130/74 98 04/03/21 17:15 77 14 116/63 97 04/03/21 17:03 98.9 F 91 17 127/69 97 Intake and Output 04/04/21 04/04/21 04/04/21 06:59 14:59 22:59 Output Total 550 Balance -550 Output: Urine 550 Other: Voiding Method Indwelling Catheter Weight 139.7 kg Results CBC & Chem 7: 04/04/21 04:46 04/04/21 04:46 Labs: Abnormal Lab Results - Last 24 Hours (Table) 04/04/21 04/04/21 Range/Units 04:46 04:46 WBC 13.9 H (3.8-10.6) k/uL RBC 3.31 L (3.80-5.40) m/uL Hgb 9.9 L (11.4-16.0) gm/dL Hct 28.0 L (34.0-46.0) % Neutrophils # 12.0 H (1.3-7.7) k/uL Potassium 3.3 L (3.5-5.1) mmol/L BUN 24 H (7-17) mg/dL Glucose 176 H (74-99) mg/dL Microbiology - Last 24 Hours (Table) 04/03/21 13:00 Gram Stain - Preliminary Knee - Left Wound Culture - Preliminary 04/03/21 13:00 Gram Stain - Preliminary Knee - Left Wound Culture - Preliminary 04/03/21 13:00 Gram Stain - Preliminary Knee - Left Tissue Culture - Preliminary 04/03/21 13:00 Gram Stain - Preliminary Knee - Left Tissue Culture - Preliminary 04/03/21 13:00 Gram Stain - Preliminary Knee - Left Tissue Culture - Preliminary 04/03/21 13:00 Anaerobic Culture - Preliminary Knee - Left 04/03/21 13:00 Anaerobic Culture - Preliminary Knee - Left 04/03/21 13:00 Anaerobic Culture - Preliminary Knee - Left
[2021-04-05] MEDS: VANCOMYCIN 2,500 MG in SODIUM CHLORIDE 0.9% 500 ML 500 ML IVPB SCH ×2 (05:09→17:39)
[2021-04-05] MEDS: HYDROmorphone 1 MG/ML 1 ML SYRINGE IVP PRN ×2 (05:10→21:16)
[2021-04-05] MEDS: HYDROcodone/APAP 10-325MG 1 EACH TAB PO PRN ×3 (06:24→13:19)
[2021-04-05] MEDS: LOSARTAN 50 MG TAB PO SCH (09:35)
[2021-04-05] MEDS: ASPIRIN 81 MG PO SCH ×2 (09:35→21:47)
[2021-04-05] MEDS: MONTELUKAST 10 MG TAB PO SCH (09:35)
[2021-04-05] MEDS: METOPROLOL SUCCINATE (ER) 25 MG TAB.ER.24H PO SCH (09:35)
[2021-04-05] MEDS: GABAPENTIN 300 MG CAP PO SCH ×3 (09:35→21:47)
[2021-04-05] MEDS: DESVENLAFAXINE SUCCINATE 50 MG TAB.ER.24H PO SCH (09:36)
[2021-04-05] MEDS: MUPIROCIN 2% OINT 22 GM TUBE NASAL SCH ×3 (09:45→21:47)
[2021-04-05] MEDS: amLODIPine 5 MG TAB PO SCH (10:04)
[2021-04-05] MEDS: PANTOPRAZOLE 40 MG/10 ML VIAL IVP SCH ×2 (10:11→20:42)
--- NOTE | 2021-04-05 11:35 | P.CONS ---
History of Present Illness - Reason for Consult Consult date: 04/05/21 Nausea and vomiting Requesting physician: Mick Zuniga - Chief Complaint Left total knee joint infection - History of Present Illness Patient is a 50-year-old female admitted to the hospital for a total knee periprosthetic joint infection antibiotic spacer placed placement, revision and total knee arthroplasty on the left side, patient presently has a wound VAC/sarah gical drain. Patient was having severe postop nausea and vomiting. She was started on multiple medications that were not helping. She then was started on scopolamine patch yesterday late afternoon and patient states symptoms started to improve. She has had no further nausea or vomiting since 5 AM this morning. She is also on pain medications as well as antibiotics. She denies any history of peptic ulcer disease. She does have a history of anxiety and depression. Patient had been very anxious and was started on Ativan and that has helped as well. She does have a history of EGD done approximately 1 year ago in [place] related to acid reflux with no reported significant findings. Review of Systems REVIEW OF SYSTEMS: CARDIOPULMONARY: No chest pain or shortness of breath. Gastrointestinal: No abdominal pain. Nausea with vomiting several times post surgery. No hematemesis, coffee-ground emesis. No rectal bleeding, or melena. GENITOURINARY: No dysuria or hematuria. MUSCULOSKELETAL: Reports normal range of motion., Joint pain. SKIN: No rashes. No jaundice. ENDOCRINE: No chills, fevers. No excessive weight gain or loss. No polydipsia or polyuria. PSYCHIATRIC: Unremarkable. NEUROLOGY: No change in mental status. Denies dizziness, headache. ENT: Vision unremarkable. CONSTITUTIONAL: No recent weight loss. No fever, chills, night sweats. Past Medical History Past Medical History: Asthma, GERD/Reflux, Hearing Disorder / Deafness, Hypertension, Osteoarthritis (OA), Sleep Apnea/CPAP/BIPAP Additional Past Medical History / Comment(s): Poor hearing right ear. No CPAP use currently. Past hx. of left knee infection. Uterine Ablation. 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 Left knee surgery. Dental work. Umbilical hernia repair. Past Anesthesia/Blood Transfusion Reactions: No Reported Reaction Past Psychological History: Anxiety Smoking Status: Never smoker Past Alcohol Use History: None Reported Past Drug Use History: None Reported - Past Family History Mother Family Medical History: No Reported History Medications and Allergies Home Medications Medication Instructions Recorded Confirmed Type Cetirizine HCl [Zyrtec] 10 mg PO DAILY 01/08/21 04/03/21 History Desvenlafaxine Succinate [Pristiq] 100 mg PO QAM 01/08/21 04/03/21 History Hydrocodone/Acetaminphen - ?Mg 1 tab PO DIRECTED PRN 01/08/21 04/03/21 History Losartan Potassium 100 mg PO QAM 01/08/21 04/03/21 History Metoprolol Succinate (ER) [Toprol 25 mg PO QAM 01/08/21 04/03/21 History XL] Montelukast Sodium [Singulair] 10 mg PO DAILY 01/08/21 04/03/21 History Mupirocin [Mupirocin 2% with 1 applic NASAL TID 01/08/21 04/03/21 History applicator] Pantoprazole [Protonix] 40 mg PO QAM 01/08/21 04/03/21 History amLODIPine BESYLATE 5 mg PO QAM 01/08/21 04/03/21 History hydroCHLOROthiazide 25 mg PO QAM 01/08/21 04/03/21 History Acetaminophen Tab [Tylenol] 650 mg PO Q6HR PRN tab 01/17/21 04/03/21 Rx Multivitamins, Thera [Multivitamin 1 tab PO DAILY 04/01/21 04/03/21 History (formulary)] [place]-3/Dha/Epa/Fish Oil [Fish Oil 1 each PO DAILY 04/01/21 04/03/21 History 500 mg Softgel] Gabapentin 300 mg PO TID 04/02/21 04/03/21 History Allergies Allergy/AdvReac Type Severity Reaction Status Date / Time bee venom protein (honey bee) Allergy Anaphylaxis Verified 04/03/21 10:47 Penicillins Allergy Rash/Hives Verified 04/03/21 10:47 acetaminophen [From Percocet] AdvReac Nausea & Verified 04/03/21 10:47 Vomiting oxycodone [From Percocet] AdvReac Nausea & Verified 04/03/21 10:47 Vomiting Physical Exam Vitals: Vital Signs Temp Pulse Pulse Resp BP Pulse Ox 04/05/21 07:16 98.3 F 91 18 131/78 98 04/05/21 01:36 98.5 F 111 H 18 119/72 97 04/04/21 19:54 98.3 F 104 H 18 114/69 95 04/04/21 14:00 100.1 F H 94 18 108/65 99 Intake and Output 04/04/21 04/05/21 04/05/21 22:59 06:59 14:59 Output Total 1500 0 Balance -1500 0 Output: Urine 1500 Stool 0 Other: Voiding Method Indwelling Catheter Indwelling Catheter General appearance: The patient is alert, oriented, appears in no acute distress. HET: Head is normocephalic and atraumatic. Conjunctiva pink. Sclera anicteric. Neck: Supple without lymphadenopathy. Trachea midline. Heart: S1 S2. Regular rate and rhythm. Lungs: Clear to auscultation. Abdomen: Soft, nontender, nondistended with bowel sounds. No guarding or rigidity. Skin: No rashes. No jaundice. Extremities: Normal skin color and turgor. No pedal edema. Neurological: No focal deficits. Alert and oriented x3. Results CBC & Chem 7: 04/04/21 04:46 04/04/21 04:46 Labs: Microbiology - Last 24 Hours (Table) 04/03/21 13:00 Gram Stain - Preliminary Knee - Left Tissue Culture - Preliminary 04/03/21 13:00 Gram Stain - Preliminary Knee - Left Wound Culture - Preliminary 04/03/21 13:00 Gram Stain - Preliminary Knee - Left Wound Culture - Preliminary 04/03/21 13:00 Gram Stain - Preliminary Knee - Left Tissue Culture - Preliminary 04/03/21 13:00 Gram Stain - Preliminary Knee - Left Tissue Culture - Preliminary Assessment and Plan (1) Postoperative nausea and vomiting Narrative/Plan: 50-year-old female who came in for total knee infection status post antibiotic spacer and revision who had postop nausea and vomiting. Patient states previously she had similar symptoms postanesthesia but not quite this bad. She was started on several antiemetics initially with no improvement in her nausea vomiting. Yesterday late afternoon she was started on a scopolamine patch which she states has helped. She's had no further nausea or vomiting since 5 this morning. She does have a history of acid reflux that has undergone an EGD 1 year ago with no significant findings. Patient denies any abdominal pain other than some tenderness from vomiting. She denies any coffee-ground or hematemesis. Will continue with current antiemetics, continue scopolamine patch. No plans on endoscopic evaluation. Will add Tums per patient request. Current Visit: Yes Status: Acute Code(s): R11.2 - NAUSEA WITH VOMITING, UNSPECIFIED; Z98.890 - OTHER SPECIFIED POSTPROCEDURAL STATES SNOMED Code(s): 1474754 (2) Status post revision of total replacement of left knee Current Visit: Yes Status: Acute Code(s): Z96.652 - PRESENCE OF LEFT ARTIFICIAL KNEE JOINT SNOMED Code(s): 250092854208085 (3) Infection of total left knee replacement Current Visit: No Status: Acute Code(s): T84.54XA - INFECT/INFLM REACTION DUE TO INTERNAL LEFT KNEE PROSTH, INIT SNOMED Code(s): 864079939 Plan: 1. Continue symptomatic and supportive care 2. Continue current antiemetics including scopolamine patch 3. Increase Protonix to twice a day 4. Tums ordered 5. No plans on endoscopic evaluation Thank you for allowing us to participate in the care of the patient, the GI service will sign off, gastroenterology will not be available at the hospital this weekend and through next week. If further evaluation by gastroenterology is required the patient will need transfer as per the primary team's discretion. Dr. Demond Ariza I agree with the dictator's note, documented as a scribe by Maria Yuen.
[2021-04-05] MEDS: METOCLOPRAMIDE 5 MG/ML 2 ML VIAL IVP PRN ×2 (13:16→19:34)
--- NOTE | 2021-04-05 13:27 | P.PN ---
Subjective Patient is a 50-year-old female admitted to the hospital for "totally. Prosthetic joint infection antibiotic spacer placed placement, revision and total knee arthroplasty on the left side, patient presently has a wound VAC/surgical drain. Patient was having nausea vomiting all night and patient is on multiple medications including Zofran, Tigan, along with the Reglan and Benadryl for extra pleural side effects patient was started on Ativan patient is still with nauseous today although much improved. Patient is also on Protonix. Patient does have history of hypertension on multiple blood pressure medications. Patient pain is fairly well-controlled patient does have bowel sounds did not move her bowel yet. 04/05/2021 Patient nausea significant improved today scopolamine patch was removed. Patient feels much better but didn't sleep last night because of nausea. Patient is complaining of some pain in the left leg didn't pass gas did urinate fully catheter was removed. Constitutional: Denied any fatigue denied any fever. Cardio vascular: denied any chest pain, palpitations Gastrointestinal denied any nausea vomiting Pulmonary: Denied any shortness of breath cough Neurologic denied any new focal deficits All inpatient medications were reviewed and appropriate changes in these medications as dictated in the interval history and assessment and plan. PHYSICAL EXAMINATION: GENERAL: The patient is alert and oriented x3, not in any acute distress. Well developed, well nourished. Obese HEENT: Pupils are round and equally reacting to light. EOMI. No scleral icterus. No conjunctival pallor. Normocephalic, atraumatic. No pharyngeal erythema. No thyromegaly. CARDIOVASCULAR: S1 and S2 present. No murmurs, rubs, or gallops. PULMONARY: Chest is clear to auscultation, no wheezing or crackles. ABDOMEN: Soft, nontender, nondistended, normoactive bowel sounds. No palpable organomegaly. MUSCULOSKELETAL: No joint swelling or deformity. Left knee postsurgical abdominal with a wound VAC. EXTREMITIES: No cyanosis, clubbing, or pedal edema. NEUROLOGICAL: Gross neurological examination did not reveal any focal deficits. SKIN: No rashes. 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 Patient is presently on IV vancomycin -Severe nausea: Significant improved now -Hypokalemia secondary to placed. Presently had a "is old but if she is going back on this medication patient will need potassium supplementation and daily basis -History of asthma without any acute exacerbation at this time -Gastroesophageal reflux disease -Obesity, sleep apnea uses CPAP machine at home -osteoarthritis -Leukocytosis reactive secondary to surgery -Depression patient was started on Pristiq DVT prophylaxis: As per primary service Objective - Vital Signs Vital signs: Vital Signs Temp 98.3 F 04/05/21 07:16 Pulse 91 04/05/21 07:16 Resp 18 04/05/21 07:16 BP 131/78 04/05/21 07:16 Pulse Ox 98 04/05/21 07:16 Intake & Output 04/04/21 04/05/21 04/05/21 18:59 06:59 18:59 Output Total 1500 0 Balance -1500 0 Output: Urine 1500 Stool 0 Other: Voiding Method Indwelling Catheter Indwelling Catheter Indwelling Catheter - Labs CBC & Chem 7: 04/04/21 04:46 04/04/21 04:46 Labs: Microbiology - Last 24 Hours (Table) 04/03/21 13:00 Gram Stain - Preliminary Knee - Left Tissue Culture - Preliminary 04/03/21 13:00 Gram Stain - Preliminary Knee - Left Wound Culture - Preliminary 04/03/21 13:00 Gram Stain - Preliminary Knee - Left Wound Culture - Preliminary 04/03/21 13:00 Gram Stain - Preliminary Knee - Left Tissue Culture - Preliminary
[2021-04-05] MEDS: LACTATED RINGERS 1,000 ML IV SCH ×2 (16:11→21:46)
[2021-04-05] MEDS: ONDANSETRON 4 MG/2 ML VIAL IVP PRN (19:07)
--- NOTE | 2021-04-05 19:16 | P.PN ---
Subjective Progress Note Date: 04/05/21 This patient is a 50- year female who is status-post revision left total knee arthroplasty as part of a staged procedure on 04/03/21. Today is post-operative day #2. Patient is seen and examined bedside with Dr. Montesinos. Nausea has improved significantly. She is tolerating her diet well. Patient has been working with physical therapy. Her left knee pain is well- controlled. She has no new complaints or concerns today. Vital signs stable. Objective - Vital Signs Vital signs: Vital Signs Temp 98.3 F 04/05/21 13:11 Pulse 89 04/05/21 13:11 Resp 17 04/05/21 13:11 BP 158/90 04/05/21 13:11 Pulse Ox 98 04/05/21 13:11 Intake & Output 04/05/21 04/05/21 04/06/21 06:59 18:59 06:59 Output Total 1500 0 Balance -1500 0 Output: Urine 1500 Stool 0 Other: Voiding Method Indwelling Catheter Indwelling Catheter # Voids 2 # Bowel Movements 2 - Exam On examination, patient is sitting up in the bedside chair in no apparent distress. She is alert and orientated x3. On inspection of the left knee, knee immobilizer is removed. CHRIS wrap in place which is not removed today. Wound vac in place, good seal at this time. The foot is warm and well-perfused with brisk capillary refill. Motor and sensory function intact left lower extremity. - Labs CBC & Chem 7: 04/04/21 04:46 04/04/21 04:46 Labs: Microbiology - Last 24 Hours (Table) 04/03/21 13:00 Gram Stain - Preliminary Knee - Left Tissue Culture - Preliminary Coagulase Negative Staph 04/03/21 13:00 Gram Stain - Preliminary Knee - Left Tissue Culture - Preliminary 04/03/21 13:00 Gram Stain - Preliminary Knee - Left Tissue Culture - Preliminary 04/03/21 13:00 Gram Stain - Final Knee - Left Wound Culture - Final 04/03/21 13:00 Gram Stain - Final Knee - Left Wound Culture - Final 04/03/21 13:00 Anaerobic Culture - Preliminary Knee - Left 04/03/21 13:00 Anaerobic Culture - Preliminary Knee - Left 04/03/21 13:00 Anaerobic Culture - Preliminary Knee - Left 04/03/21 13:00 Anaerobic Culture - Preliminary Knee - Left Assessment and Plan Assessment: Status-post revision left total knee arthroplasty as part of a staged procedure on 04/03/21. Post-operative day #2. Plan: - Weight bear as tolerated on operative leg with a walker. - Discontinue knee immobilizer. - Do not remove wound vac. Our plan is to keep the current wound vac in place for 2 weeks. - Aspirin 81mg BID x 4 weeks for DVT prophylaxis. - Internal medicine for sidra-operative medical management. - Infectious disease has been consulted for antibiotic recommendations for long-term oral suppression, at least 3-6 months. - Will continue to follow intra-operative cultures. - Case management has been consulted for discharge planning. Home health care versus rehab on discharge.
[2021-04-05] MEDS: hydrOXYzine pamoate 25 MG CAP PO PRN (19:34)
[2021-04-05] MEDS ORDERED: diphenhydrAMINE 50 MG/ML 1 ML VIAL IVP ONE (20:31)
[2021-04-05] MEDS: SENNOSIDES-DOCUSATE SODIUM 1 EACH TAB PO SCH (21:47)
--- NOTE | 2021-04-05 22:48 | P.PN ---
Subjective Progress Note Date: 04/05/21 Principal diagnosis: Left knee septic arthritis Patient is a 50-year-old female with a past medical history significant for left knee septic arthritis secondary to Staphylococcus epidermidis completed IV vancomycin therapy admitted to the hospital for stage II procedure which was completed on 04/03/2021. On today's evaluation that is 04/05/2021, the patient denies having any fever or chills, patient still has been complaining of nausea, denies any chest pain shortness of breath or cough pain to the left knee is currently controlled Objective - Vital Signs Vital signs: Vital Signs Temp 98.3 F 04/05/21 07:16 Pulse 91 04/05/21 07:16 Resp 18 04/05/21 07:16 BP 131/78 04/05/21 07:16 Pulse Ox 98 04/05/21 07:16 Intake & Output 04/04/21 04/05/21 04/05/21 18:59 06:59 18:59 Output Total 1500 0 Balance -1500 0 Output: Urine 1500 Stool 0 Other: Voiding Method Indwelling Catheter Indwelling Catheter Indwelling Catheter - Exam GENERAL DESCRIPTION: Middle-age female lying in bed in no distress RESPIRATORY SYSTEM: Unlabored breathing , decreased breath sounds at bases HEART: S1 S2 regular rate and rhythm , ABDOMEN: Soft , no tenderness EXTREMITIES: Left knee is currently covered with a wound VAC - Labs CBC & Chem 7: 04/04/21 04:46 04/04/21 04:46 Labs: Microbiology - Last 24 Hours (Table) 04/03/21 13:00 Gram Stain - Preliminary Knee - Left Tissue Culture - Preliminary 04/03/21 13:00 Gram Stain - Preliminary Knee - Left Wound Culture - Preliminary 04/03/21 13:00 Gram Stain - Preliminary Knee - Left Wound Culture - Preliminary 04/03/21 13:00 Gram Stain - Preliminary Knee - Left Tissue Culture - Preliminary Assessment and Plan (1) Septic arthritis Current Visit: No Status: Acute Code(s): M00.9 - PYOGENIC ARTHRITIS, UNSPECIFIED SNOMED Code(s): 364306187 Plan: Patient with left knee septic arthritis in this patient admitted to the hospital was stage II procedure which was completed on 04/03/2021, unfortunately were cultures ultimately gram-positive staph epi that will be concerning will discuss further with orthopedics for now continue with the vancomycin and continue supportive care Time with Patient: Less than 30
[2021-04-06] MEDS: ONDANSETRON 4 MG/2 ML VIAL IVP PRN ×2 (04:27→14:31)
[2021-04-06 04:37] LABS: African American GFR (CKD) >90 (>60 ml/min/1.73 sqM); Non-African American GFR(CKD) >90 (>60 ml/min/1.73 sqM)
[2021-04-06] MEDS: VANCOMYCIN 2,500 MG in SODIUM CHLORIDE 0.9% 500 ML 500 ML IVPB SCH ×2 (05:11→16:53)
[2021-04-06] MEDS: LORazepam 2 MG/ML INJ IV PRN ×2 (05:17→20:53)
[2021-04-06] MEDS: ASPIRIN 81 MG PO SCH ×2 (08:13→20:51)
[2021-04-06] MEDS: MONTELUKAST 10 MG TAB PO SCH (08:13)
[2021-04-06] MEDS: LOSARTAN 50 MG TAB PO SCH (08:13)
[2021-04-06] MEDS: amLODIPine 5 MG TAB PO SCH (08:13)
[2021-04-06] MEDS: GABAPENTIN 300 MG CAP PO SCH ×3 (08:14→20:51)
[2021-04-06] MEDS: DESVENLAFAXINE SUCCINATE 50 MG TAB.ER.24H PO SCH (08:14)
[2021-04-06] MEDS: PANTOPRAZOLE 40 MG/10 ML VIAL IVP SCH ×2 (08:14→20:51)
[2021-04-06] MEDS: METOPROLOL SUCCINATE (ER) 25 MG TAB.ER.24H PO SCH (08:14)
[2021-04-06] MEDS: METOCLOPRAMIDE 5 MG/ML 2 ML VIAL IVP PRN (08:15)
[2021-04-06 09:10] LABS: Basophils # (A) 0.04 X 10*3/uL (0.00-0.10); Basophils % (A) 0.5 %; Eosinophils # (A) 0.11 X 10*3/uL (0.04-0.35); Eosinophils % (A) 1.3 %; HCT 25.8 % (37.2-46.3); HGB 7.8 g/dL (12.0-15.0); Immature Grans, Automated 0.2 %; Lymphocytes # (A) 1.56 X 10*3/uL (0.90-5.00); Lymphocytes % (A) 18.7 %; MCH 25.8 pg (27.0-32.0); MCHC 30.2 g/dL (32.0-37.0); MCV 85.4 fL (80.0-97.0); Mean Platelet Volume 11.6 fL (9.5-12.2); Monocytes % (A) 9.6 %; NRBC Per 100 WBC 0 /100 WBCS (0.0-0.0); Neutrophils # (A) 5.82 X 10*3/uL (1.80-7.70); Neutrophils % (A) 69.7 %; Platelet Count 208 X 10*3/uL (140-440); RBC 3.02 X 10*6/uL (4.10-5.20); WBC 8.35 X 10*3/uL (4.50-10.00)
--- NOTE | 2021-04-06 10:19 | P.PN ---
Subjective Progress Note Date: 04/06/21 This is a 50-year-old female who is status post stage II revision left total knee arthroplasty by Dr. Montesinos. This is postoperative day #3 and patient is seen and evaluated at bedside today. Patient complains of nausea this morning, but states that she is able to take small sips of water. Otherwise, patient denies any new complaints today. Objective - Vital Signs Vital signs: Vital Signs Temp 98.1 F 04/06/21 07:47 Pulse 85 04/06/21 07:47 Resp 16 04/06/21 07:47 BP 144/84 04/06/21 07:47 Pulse Ox 95 04/06/21 07:47 Intake & Output 04/05/21 04/06/21 04/06/21 18:59 06:59 18:59 Output Total 0 200 Balance 0 -200 Output: Stool 0 Emesis 200 Other: Voiding Method Indwelling Catheter Toilet # Voids 2 4 # Bowel Movements 2 1 - Exam Vital signs are stable. Patient is in no acute distress and is alert and oriented 3. Calf is soft and nontender to palpation. Wound VAC in place. Patient has full foot and ankle motion without pain or difficulty. Sensation intact. Neurovascular status and circulatory status are intact. - Labs CBC & Chem 7: 04/06/21 04:14 04/06/21 04:14 Labs: Abnormal Lab Results - Last 24 Hours (Table) 04/06/21 Range/Units 04:14 RBC 3.02 L (4.10-5.20) X 10*6/uL Hgb 7.8 L (12.0-15.0) g/dL Hct 25.8 L (37.2-46.3) % MCH 25.8 L (27.0-32.0) pg MCHC 30.2 L (32.0-37.0) g/dL RDW 15.0 H (11.5-14.5) % Microbiology - Last 24 Hours (Table) 04/04/21 17:07 Blood Culture - Preliminary Blood No Growth after 24 hours 04/03/21 13:00 Gram Stain - Preliminary Knee - Left Tissue Culture - Preliminary Coagulase Negative Staph 04/03/21 13:00 Gram Stain - Preliminary Knee - Left Tissue Culture - Preliminary 04/03/21 13:00 Gram Stain - Preliminary Knee - Left Tissue Culture - Preliminary 04/03/21 13:00 Gram Stain - Final Knee - Left Wound Culture - Final 04/03/21 13:00 Gram Stain - Final Knee - Left Wound Culture - Final 04/03/21 13:00 Anaerobic Culture - Preliminary Knee - Left 04/03/21 13:00 Anaerobic Culture - Preliminary Knee - Left 04/03/21 13:00 Anaerobic Culture - Preliminary Knee - Left 04/03/21 13:00 Anaerobic Culture - Preliminary Knee - Left Assessment and Plan (1) Status post revision of total replacement of left knee Current Visit: Yes Status: Acute Code(s): Z96.652 - PRESENCE OF LEFT ARTIFICIAL KNEE JOINT SNOMED Code(s): 160676983238509 Plan: #1 Continue with routine postoperative care and pain control. #2 Anticoagulation with aspirin. #3 Do not remove wound vac. The plan is to keep the current wound vac in place for 2 weeks. #4 Appreciate input from medicine and infectious disease. Cultures are pending. #5 Anticipate discharge home or to rehab in the next 24-48 hours once discharge antibiotics are determined.
--- NOTE | 2021-04-06 13:18 | P.PN ---
Subjective Patient is a 50-year-old female admitted to the hospital for "totally. Prosthetic joint infection antibiotic spacer placed placement, revision and total knee arthroplasty on the left side, patient presently has a wound VAC/surgical drain. Patient was having nausea vomiting all night and patient is on multiple medications including Zofran, Tigan, along with the Reglan and Benadryl for extra pleural side effects patient was started on Ativan patient is still with nauseous today although much improved. Patient is also on Protonix. Patient does have history of hypertension on multiple blood pressure medications. Patient pain is fairly well-controlled patient does have bowel sounds did not move her bowel yet. 04/05/2021 Patient nausea significant improved today scopolamine patch was removed. Patient feels much better but didn't sleep last night because of nausea. Patient is complaining of some pain in the left leg didn't pass gas did urinate fully catheter was removed. 04/06/2021 Patient is occasionally complaining of nausea although much better controlled compared to couple days ago. Constitutional: Denied any fatigue denied any fever. Cardio vascular: denied any chest pain, palpitations Gastrointestinal denied any nausea vomiting Pulmonary: Denied any shortness of breath cough Neurologic denied any new focal deficits All inpatient medications were reviewed and appropriate changes in these medications as dictated in the interval history and assessment and plan. PHYSICAL EXAMINATION: GENERAL: The patient is alert and oriented x3, not in any acute distress. Well developed, well nourished. Obese HEENT: Pupils are round and equally reacting to light. EOMI. No scleral icterus. No conjunctival pallor. Normocephalic, atraumatic. No pharyngeal erythema. No thyromegaly. CARDIOVASCULAR: S1 and S2 present. No murmurs, rubs, or gallops. PULMONARY: Chest is clear to auscultation, no wheezing or crackles. ABDOMEN: Soft, nontender, nondistended, normoactive bowel sounds. No palpable organomegaly. MUSCULOSKELETAL: No joint swelling or deformity. Left knee postsurgical abdominal with a wound VAC. EXTREMITIES: No cyanosis, clubbing, or pedal edema. NEUROLOGICAL: Gross neurological examination did not reveal any focal deficits. SKIN: No rashes. 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 Patient is presently on IV vancomycin. Wound cultures are pending -Severe nausea: Significant improved now -Hypokalemia secondary to placed. Presently had a "is old but if she is going back on this medication patient will need potassium supplementation and daily basis -History of asthma without any acute exacerbation at this time -Gastroesophageal reflux disease -Obesity, sleep apnea uses CPAP machine at home -osteoarthritis -Leukocytosis reactive secondary to surgery -Depression patient was started on Pristiq DVT prophylaxis: As per primary service Objective - Vital Signs Vital signs: Vital Signs Temp 98.1 F 04/06/21 07:47 Pulse 85 04/06/21 07:47 Resp 16 04/06/21 07:47 BP 144/84 04/06/21 07:47 Pulse Ox 95 04/06/21 07:47 Intake & Output 04/05/21 04/06/21 04/06/21 18:59 06:59 18:59 Output Total 0 200 Balance 0 -200 Output: Stool 0 Emesis 200 Other: Voiding Method Indwelling Catheter Toilet # Voids 2 4 # Bowel Movements 2 1 - Labs CBC & Chem 7: 04/06/21 04:14 04/06/21 04:14 Labs: Abnormal Lab Results - Last 24 Hours (Table) 04/06/21 Range/Units 04:14 RBC 3.02 L (4.10-5.20) X 10*6/uL Hgb 7.8 L (12.0-15.0) g/dL Hct 25.8 L (37.2-46.3) % MCH 25.8 L (27.0-32.0) pg MCHC 30.2 L (32.0-37.0) g/dL RDW 15.0 H (11.5-14.5) % Microbiology - Last 24 Hours (Table) 04/04/21 17:07 Blood Culture - Preliminary Blood No Growth after 24 hours 04/03/21 13:00 Gram Stain - Preliminary Knee - Left Tissue Culture - Preliminary Coagulase Negative Staph 04/03/21 13:00 Gram Stain - Preliminary Knee - Left Tissue Culture - Preliminary 04/03/21 13:00 Gram Stain - Preliminary Knee - Left Tissue Culture - Preliminary 04/03/21 13:00 Gram Stain - Final Knee - Left Wound Culture - Final 04/03/21 13:00 Gram Stain - Final Knee - Left Wound Culture - Final 04/03/21 13:00 Anaerobic Culture - Preliminary Knee - Left 04/03/21 13:00 Anaerobic Culture - Preliminary Knee - Left 04/03/21 13:00 Anaerobic Culture - Preliminary Knee - Left 04/03/21 13:00 Anaerobic Culture - Preliminary Knee - Left
[2021-04-06] MEDS: LACTATED RINGERS 1,000 ML IV SCH ×2 (15:09→16:18)
[2021-04-06] MEDS: MUPIROCIN 2% OINT 22 GM TUBE NASAL SCH ×3 (16:17→20:53)
[2021-04-06] MEDS: HYDROcodone/APAP 10-325MG 1 EACH TAB PO PRN (16:17)
[2021-04-06] MEDS: CALCIUM CARBONATE 500 MG CHEWABLE PO PRN ×2 (16:20→22:18)
[2021-04-06] MEDS ORDERED: Potassium Replacement Protocol 1 EACH MISC MISCELLANE PRN (19:35)
[2021-04-06] MEDS: POTASSIUM CHLORIDE ER 20 MEQ TAB.ER PO SCH ×2 (20:50→22:17)
[2021-04-06] MEDS: SENNOSIDES-DOCUSATE SODIUM 1 EACH TAB PO SCH (20:51)
[2021-04-06] MEDS: ACETAMINOPHEN TAB 325 MG TAB PO PRN (20:53)
[2021-04-07] MEDS: HYDROcodone/APAP 10-325MG 1 EACH TAB PO PRN ×3 (00:26→17:19)
[2021-04-07] MEDS: LACTATED RINGERS 1,000 ML IV SCH ×3 (00:26→21:03)
[2021-04-07] MEDS ORDERED: VANCOMYCIN TROUGH DUE 1 EACH MISC MISCELLANE ONE (05:00)
[2021-04-07 05:57] LABS: African American GFR (CKD) >90 (>60 ml/min/1.73 sqM); Non-African American GFR(CKD) >90 (>60 ml/min/1.73 sqM)
[2021-04-07] MEDS: VANCOMYCIN 2,500 MG in SODIUM CHLORIDE 0.9% 500 ML 500 ML IVPB SCH ×2 (06:13→17:06)
[2021-04-07] MEDS: DESVENLAFAXINE SUCCINATE 50 MG TAB.ER.24H PO SCH (08:06)
[2021-04-07] MEDS: LOSARTAN 50 MG TAB PO SCH (08:07)
[2021-04-07] MEDS: ASPIRIN 81 MG PO SCH ×2 (08:07→21:03)
[2021-04-07] MEDS: MUPIROCIN 2% OINT 22 GM TUBE NASAL SCH ×3 (08:30→21:03)
[2021-04-07] MEDS: GABAPENTIN 300 MG CAP PO SCH ×3 (08:30→21:02)
[2021-04-07] MEDS: amLODIPine 5 MG TAB PO SCH (08:30)
[2021-04-07] MEDS: METOPROLOL SUCCINATE (ER) 25 MG TAB.ER.24H PO SCH (08:30)
[2021-04-07] MEDS: MONTELUKAST 10 MG TAB PO SCH (08:30)
[2021-04-07] MEDS: PANTOPRAZOLE 40 MG/10 ML VIAL IVP SCH ×2 (08:31→21:03)
[2021-04-07 09:23] LABS: African American GFR (CKD) 101.9 (60.0-200.0); Anion Gap 9.6 mmol/L (10.00-18.00); BUN/Creat Ratio 11.92 Ratio (12.00-20.00); Blood Urea Nitrogen 9.4 mg/dL (9.0-27.0); C Reactive Protein 6.9 mg/dL (0.00-0.80); Calcium 8.6 mg/dL (8.7-10.3); Carbon Dioxide 26.8 mmol/L (20.0-27.5); Potassium 3.4 mmol/L (3.5-5.5)
--- NOTE | 2021-04-07 09:26 | P.PN ---
Subjective Progress Note Date: 04/07/21 This is a 50-year-old female who is status post stage II revision left total knee arthroplasty by Dr. Montesinos. This is postoperative day #4 and patient is seen and evaluated at bedside today. Patient states that her nausea has improved and she has been eating and keeping fluids down without any problems. Patient denies any new complaints today. Objective - Vital Signs Vital signs: Vital Signs Temp 98.2 F 04/07/21 08:00 Pulse 83 04/07/21 08:00 Resp 14 04/07/21 08:00 BP 111/70 04/07/21 08:00 Pulse Ox 96 04/07/21 08:00 Intake & Output 04/06/21 04/07/21 04/07/21 18:59 06:59 18:59 Output Total 0 Balance 0 Output: Stool 0 Other: Voiding Method Toilet # Voids 1 - Exam Vital signs are stable. Patient is in no acute distress and is alert and oriented 3. Calf is soft and nontender to palpation. Wound VAC in place. Patient has full foot and ankle motion without pain or difficulty. Sensation intact. Neurovascular status and circulatory status are intact. - Labs CBC & Chem 7: 04/06/21 04:14 04/07/21 04:03 Labs: Microbiology - Last 24 Hours (Table) 04/03/21 13:00 Gram Stain - Preliminary Knee - Left Tissue Culture - Preliminary Gram Neg Bacilli 04/03/21 13:00 Gram Stain - Final Knee - Left Tissue Culture - Final Staphylococcus epidermidis 04/04/21 17:07 Blood Culture - Preliminary Blood No Growth after 48 hours 04/03/21 13:00 Gram Stain - Preliminary Knee - Left Tissue Culture - Preliminary Assessment and Plan (1) Status post revision of total replacement of left knee Current Visit: Yes Status: Acute Code(s): Z96.652 - PRESENCE OF LEFT ARTIFICIAL KNEE JOINT SNOMED Code(s): 843455791692653 Plan: #1 Continue with routine postoperative care and pain control. #2 Anticoagulation with aspirin. #3 Do not remove wound vac. The plan is to keep the current wound vac in place for 2 weeks. #4 Appreciate input from medicine and infectious disease. #5 Cultures are positive for staphylococcus epidermidis. There are no plans for further surgical intervention. Recommend 6 weeks of IV antibiotics followed by chronic oral suppressive antibiotic therapy. #6 Anticipate discharge home or to rehab in the next 24-48 hours once discharge antibiotics are determined.
--- NOTE | 2021-04-07 09:59 | P.PN ---
Subjective Patient is a 50-year-old female admitted to the hospital for "totally. Prosthetic joint infection antibiotic spacer placed placement, revision and total knee arthroplasty on the left side, patient presently has a wound VAC/surgical drain. Patient was having nausea vomiting all night and patient is on multiple medications including Zofran, Tigan, along with the Reglan and Benadryl for extra pleural side effects patient was started on Ativan patient is still with nauseous today although much improved. Patient is also on Protonix. Patient does have history of hypertension on multiple blood pressure medications. Patient pain is fairly well-controlled patient does have bowel sounds did not move her bowel yet. 04/05/2021 Patient nausea significant improved today scopolamine patch was removed. Patient feels much better but didn't sleep last night because of nausea. Patient is complaining of some pain in the left leg didn't pass gas did urinate fully catheter was removed. 04/06/2021 Patient is occasionally complaining of nausea although much better controlled compared to couple days ago. 04/07/2021 Patient looks much better today and nausea smoking improved over the other overnight events. Constitutional: Denied any fatigue denied any fever. Cardio vascular: denied any chest pain, palpitations Gastrointestinal denied any nausea vomiting Pulmonary: Denied any shortness of breath cough Neurologic denied any new focal deficits All inpatient medications were reviewed and appropriate changes in these medications as dictated in the interval history and assessment and plan. PHYSICAL EXAMINATION: GENERAL: The patient is alert and oriented x3, not in any acute distress. Well developed, well nourished. Obese HEENT: Pupils are round and equally reacting to light. EOMI. No scleral icterus. No conjunctival pallor. Normocephalic, atraumatic. No pharyngeal erythema. No thyromegaly. CARDIOVASCULAR: S1 and S2 present. No murmurs, rubs, or gallops. PULMONARY: Chest is clear to auscultation, no wheezing or crackles. ABDOMEN: Soft, nontender, nondistended, normoactive bowel sounds. No palpable organomegaly. MUSCULOSKELETAL: No joint swelling or deformity. Left knee postsurgical abdominal with a wound VAC. EXTREMITIES: No cyanosis, clubbing, or pedal edema. NEUROLOGICAL: Gross neurological examination did not reveal any focal deficits. SKIN: No rashes. 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 Patient is presently on IV vancomycin. Wound cultures are pending -Severe nausea: Significant improved now -Hypokalemia secondary to placed. Presently had a "is old but if she is going back on this medication patient will need potassium supplementation and daily basis -History of asthma without any acute exacerbation at this time -Gastroesophageal reflux disease -Obesity, sleep apnea uses CPAP machine at home -osteoarthritis -Leukocytosis reactive secondary to surgery -Depression patient was started on Pristiq DVT prophylaxis: As per primary service Objective - Vital Signs Vital signs: Vital Signs Temp 98.2 F 04/07/21 08:00 Pulse 83 04/07/21 08:00 Resp 14 04/07/21 08:00 BP 111/70 04/07/21 08:00 Pulse Ox 96 04/07/21 08:00 Intake & Output 04/06/21 04/07/21 04/07/21 18:59 06:59 18:59 Output Total 0 Balance 0 Output: Stool 0 Other: Voiding Method Toilet # Voids 1 - Labs CBC & Chem 7: 04/06/21 04:14 04/07/21 04:03 Labs: Abnormal Lab Results - Last 24 Hours (Table) 04/07/21 Range/Units 04:03 Potassium 3.4 L (3.5-5.5) mmol/L Anion Gap 9.60 L (10.00-18.00) mmol/L BUN/Creatinine Ratio 11.92 L (12.00-20.00) Ratio Calcium 8.6 L (8.7-10.3) mg/dL C-Reactive Protein 6.90 H (0.00-0.80) mg/dL Microbiology - Last 24 Hours (Table) 04/03/21 13:00 Gram Stain - Preliminary Knee - Left Tissue Culture - Preliminary Gram Neg Bacilli 04/03/21 13:00 Gram Stain - Final Knee - Left Tissue Culture - Final Staphylococcus epidermidis 04/04/21 17:07 Blood Culture - Preliminary Blood No Growth after 48 hours 04/03/21 13:00 Gram Stain - Preliminary Knee - Left Tissue Culture - Preliminary
[2021-04-07] MEDS: CALCIUM CARBONATE 500 MG CHEWABLE PO PRN (15:38)
[2021-04-07] MEDS: METOCLOPRAMIDE 5 MG/ML 2 ML VIAL IVP PRN (17:16)
[2021-04-07] MEDS ORDERED: Potassium Replacement Protocol 1 EACH MISC MISCELLANE PRN (20:17)
[2021-04-07] MEDS: POTASSIUM CHLORIDE ER 20 MEQ TAB.ER PO SCH ×2 (21:02→22:56)
[2021-04-07] MEDS: SENNOSIDES-DOCUSATE SODIUM 1 EACH TAB PO SCH (21:03)
[2021-04-07] MEDS: LORazepam 2 MG/ML INJ IV PRN (21:04)
--- NOTE | 2021-04-07 22:44 | P.PN ---
Subjective Progress Note Date: 04/06/21 Principal diagnosis: Left knee septic arthritis Patient is a 50-year-old female with a past medical history significant for left knee septic arthritis secondary to Staphylococcus epidermidis completed IV vancomycin therapy admitted to the hospital for stage II procedure which was completed on 04/03/2021. On today's evaluation that is 04/06/2021, the patient remains to be febrile, patient did have improvement in nausea no vomiting, patient denies having any chest pain shortness of breath or cough no abdominal pain and no worsening pain to the left knee area Objective - Vital Signs Vital signs: Vital Signs Temp 98.3 F 04/06/21 13:46 Pulse 79 04/06/21 13:46 Resp 17 04/06/21 13:46 BP 136/82 04/06/21 13:46 Pulse Ox 95 04/06/21 13:46 Intake & Output 04/05/21 04/06/21 04/06/21 18:59 06:59 18:59 Output Total 0 200 Balance 0 -200 Output: Stool 0 Emesis 200 Other: Voiding Method Indwelling Catheter Toilet # Voids 2 4 # Bowel Movements 2 1 - Exam GENERAL DESCRIPTION: Middle-age female lying in bed in no distress RESPIRATORY SYSTEM: Unlabored breathing , decreased breath sounds at bases HEART: S1 S2 regular rate and rhythm , ABDOMEN: Soft , no tenderness EXTREMITIES: Left knee is currently covered with a wound VAC - Labs CBC & Chem 7: 04/06/21 04:14 04/07/21 04:03 Labs: Abnormal Lab Results - Last 24 Hours (Table) 04/06/21 Range/Units 04:14 RBC 3.02 L (4.10-5.20) X 10*6/uL Hgb 7.8 L (12.0-15.0) g/dL Hct 25.8 L (37.2-46.3) % MCH 25.8 L (27.0-32.0) pg MCHC 30.2 L (32.0-37.0) g/dL RDW 15.0 H (11.5-14.5) % Microbiology - Last 24 Hours (Table) 04/03/21 13:00 Gram Stain - Preliminary Knee - Left Tissue Culture - Preliminary 04/03/21 13:00 Gram Stain - Preliminary Knee - Left Tissue Culture - Preliminary 04/04/21 17:07 Blood Culture - Preliminary Blood No Growth after 24 hours 04/03/21 13:00 Gram Stain - Preliminary Knee - Left Tissue Culture - Preliminary Coagulase Negative Staph 04/03/21 13:00 Gram Stain - Final Knee - Left Wound Culture - Final 04/03/21 13:00 Gram Stain - Final Knee - Left Wound Culture - Final 04/03/21 13:00 Anaerobic Culture - Preliminary Knee - Left 04/03/21 13:00 Anaerobic Culture - Preliminary Knee - Left 04/03/21 13:00 Anaerobic Culture - Preliminary Knee - Left 04/03/21 13:00 Anaerobic Culture - Preliminary Knee - Left Assessment and Plan (1) Septic arthritis Current Visit: No Status: Acute Code(s): M00.9 - PYOGENIC ARTHRITIS, UNSPECIFIED SNOMED Code(s): 196407613 Plan: Patient with left knee septic arthritis in this patient admitted to the hospital was stage II procedure which was completed on 04/03/2021, unfortunately OR cultures are growing gram-positive staph epi that will be concerning for septic arthritis, patient to continue with the vancomycin while waiting for sensitivity to finalize Time with Patient: Less than 30
--- NOTE | 2021-04-07 22:47 | P.PN ---
Subjective Progress Note Date: 04/07/21 Principal diagnosis: Left knee septic arthritis Patient is a 50-year-old female with a past medical history significant for left knee septic arthritis secondary to Staphylococcus epidermidis completed IV vancomycin therapy admitted to the hospital for stage II procedure which was completed on 04/03/2021. On today's evaluation that is 04/07/2021, the patient denies any fever or any chills, patient is feeling better no further nausea or vomiting no abdominal pain no chest pain shortness of breath or cough. Pain to the left knee is currently controlled Objective - Vital Signs Vital signs: Vital Signs Temp 98.8 F 04/07/21 20:00 Pulse 79 04/07/21 20:10 Resp 16 04/07/21 20:10 BP 125/69 04/07/21 20:00 Pulse Ox 99 04/07/21 20:00 Intake & Output 04/07/21 04/07/21 04/08/21 06:59 18:59 06:59 Intake Total 1480 Output Total 0 Balance 0 1480 Intake: Intake, IV Titration 1000 Amount Sodium Chloride 0.9% 50 500 ml @ 0 mls/hr IV .STK-MED ONE with ceFAZolin 2,000 mg Rx#:[id number] Vancomycin 2,500 mg In 500 Sodium Chloride 0.9% 500 ml 500 ml @ 167 mls/hr IVPB Q12H [facility] Rx#: [id number] Oral 480 Output: Stool 0 Other: Voiding Method Toilet Toilet # Voids 1 1 - Exam GENERAL DESCRIPTION: Middle-age female lying in bed in no distress RESPIRATORY SYSTEM: Unlabored breathing , decreased breath sounds at bases HEART: S1 S2 regular rate and rhythm , ABDOMEN: Soft , no tenderness EXTREMITIES: Left knee is currently covered with a wound VAC - Labs CBC & Chem 7: 04/06/21 04:14 04/07/21 04:03 Labs: Abnormal Lab Results - Last 24 Hours (Table) 04/07/21 04/07/21 Range/Units 04:03 04:03 ESR 52 H (0-20) mm/Hr Potassium 3.4 L (3.5-5.5) mmol/L Anion Gap 9.60 L (10.00-18.00) mmol/L BUN/Creatinine Ratio 11.92 L (12.00-20.00) Ratio Calcium 8.6 L (8.7-10.3) mg/dL C-Reactive Protein 6.90 H (0.00-0.80) mg/dL Microbiology - Last 24 Hours (Table) 04/03/21 13:00 Anaerobic Culture - Preliminary Knee - Left 04/03/21 13:00 Anaerobic Culture - Final Knee - Left 04/03/21 13:00 Anaerobic Culture - Preliminary Knee - Left 04/03/21 13:00 Anaerobic Culture - Final Knee - Left 04/03/21 13:00 Anaerobic Culture - Final Knee - Left 04/04/21 17:07 Blood Culture - Preliminary Blood No Growth after 72 hours 04/03/21 13:00 Gram Stain - Preliminary Knee - Left Tissue Culture - Preliminary Pantoea agglomerans 04/03/21 13:00 Gram Stain - Final Knee - Left Tissue Culture - Final 04/03/21 13:00 Gram Stain - Final Knee - Left Tissue Culture - Final Staphylococcus epidermidis Assessment and Plan (1) Septic arthritis Current Visit: No Status: Acute Code(s): M00.9 - PYOGENIC ARTHRITIS, UNSPECIFIED SNOMED Code(s): 057646915 Plan: Patient with left knee septic arthritis in this patient admitted to the hospital was stage II procedure which was completed on 04/03/2021, unfortunately OR cultures are growing staph epi as well as gram-negative Pantoea , patient to have history of penicillin ALLERGY but no anaphylaxis. Will add cefepime 2 g every 8 hours she will need a PICC line and a 6 week course of IV cefepime followed by prolonged suppressive oral antibiotic therapy Time with Patient: Less than 30
[2021-04-07] MEDS: CEFEPIME 2 GM in SODIUM CHLORIDE 0.9% 100 ML IVPB SCH (23:19)
[2021-04-08] MEDS: VANCOMYCIN 2,500 MG in SODIUM CHLORIDE 0.9% 500 ML 500 ML IVPB SCH ×2 (05:26→17:06)
[2021-04-08] MEDS: HYDROcodone/APAP 10-325MG 1 EACH TAB PO PRN ×4 (05:31→19:52)
[2021-04-08 06:07] LABS: African American GFR (CKD) >90 (>60 ml/min/1.73 sqM); Anion Gap 5 mmol/L; Blood Urea Nitrogen 10 mg/dL (7-17); Calcium 8.3 mg/dL (8.4-10.2); Carbon Dioxide 26 mmol/L (22-30); Chloride 106 mmol/L (98-107); Glucose 95 mg/dL (74-99); Non-African American GFR(CKD) >90 (>60 ml/min/1.73 sqM); Potassium 3.6 mmol/L (3.5-5.1); Sodium 137 mmol/L (137-145)
[2021-04-08 06:38] LABS: Basophils % (A) 1 %; Eosinophils # (A) 0.3 k/uL (0-0.7); Eosinophils % (A) 4 %; HCT 26.1 % (34.0-46.0); Hypochromasia Slight; Lymphocytes # (A) 1.7 k/uL (1.0-4.8); Lymphocytes % (A) 29 %; MCH 27.5 pg (25.0-35.0); MCHC 32.2 g/dL (31.0-37.0); MCV 85.5 fL (80.0-100.0); Mean Platelet Volume 8.6; Monocytes # (A) 0.5 k/uL (0-1.0); Monocytes % (A) 8 %; Neutrophils # (A) 3.4 k/uL (1.3-7.7); Neutrophils % (A) 57 %; Platelet Count 238 k/uL (150-450); RBC 3.05 m/uL (3.80-5.40); RDW 15.1 % (11.5-15.5)
[2021-04-08 06:42] LABS: HGB 8.4 gm/dL (11.4-16.0)
[2021-04-08] MEDS: amLODIPine 5 MG TAB PO SCH (07:31)
[2021-04-08] MEDS: METOPROLOL SUCCINATE (ER) 25 MG TAB.ER.24H PO SCH (07:32)
[2021-04-08] MEDS: ASPIRIN 81 MG PO SCH ×2 (07:32→19:51)
[2021-04-08] MEDS: MONTELUKAST 10 MG TAB PO SCH (07:32)
[2021-04-08] MEDS: LOSARTAN 50 MG TAB PO SCH (07:32)
[2021-04-08] MEDS: GABAPENTIN 300 MG CAP PO SCH ×3 (07:32→20:59)
[2021-04-08] MEDS: PANTOPRAZOLE 40 MG/10 ML VIAL IVP SCH ×2 (07:32→19:51)
[2021-04-08] MEDS: DESVENLAFAXINE SUCCINATE 50 MG TAB.ER.24H PO SCH (07:33)
[2021-04-08] MEDS: METOCLOPRAMIDE 5 MG/ML 2 ML VIAL IVP PRN (07:33)
[2021-04-08] MEDS: LACTATED RINGERS 1,000 ML IV SCH (07:41)
[2021-04-08] MEDS: MUPIROCIN 2% OINT 22 GM TUBE NASAL SCH ×3 (07:42→19:53)
[2021-04-08] MEDS: CEFEPIME 2 GM in SODIUM CHLORIDE 0.9% 100 ML IVPB SCH ×2 (07:45→15:02)
[2021-04-08] MEDS: hydrOXYzine pamoate 25 MG CAP PO PRN ×3 (11:11→19:52)
[2021-04-08] MEDS ORDERED: LIDOCAINE 1% INJ 10MG/ML (20 ML MDV) SQ ONE (13:54)
--- NOTE | 2021-04-08 15:45 | P.PN ---
Subjective Progress Note Date: 04/08/21 This patient is a 50- year female who is status-post revision left total knee arthroplasty as part of a staged procedure on 04/03/21. Today is post-operative day #5. Patient's intra-operative cultures are positive for staphylococcus epidermidis. PICC line is ordered to be placed today for IV antibiotics per Dr. Brown. Patient states her pain is well-controlled in the left knee. Patient has no new complaints or concerns. Vital signs stable. Objective - Vital Signs Vital signs: Vital Signs Temp 97.8 F 04/08/21 07:23 Pulse 83 04/08/21 07:23 Resp 18 04/08/21 07:23 BP 127/70 04/08/21 07:23 Pulse Ox 97 04/08/21 07:23 Intake & Output 04/07/21 04/08/21 04/08/21 18:59 06:59 18:59 Intake Total 1480 Balance 1480 Intake: Intake, IV Titration 1000 Amount Sodium Chloride 0.9% 50 500 ml @ 0 mls/hr IV .STK-MED ONE with ceFAZolin 2,000 mg Rx#:[id number] Vancomycin 2,500 mg In 500 Sodium Chloride 0.9% 500 ml 500 ml @ 167 mls/hr IVPB Q12H [facility] Rx#: [id number] Oral 480 Other: Voiding Method Toilet # Voids 1 2 - Exam On examination, patient is sitting up in the bedside chair in no apparent distress. She is alert and orientated x3. CHRIS wrap in place and removed. Wound vac in place, good seal at this time. The foot is warm and well-perfused with brisk capillary refill. Motor and sensory function intact left lower extremity. Calf is soft and non-tender. - Labs CBC & Chem 7: 04/08/21 06:17 04/08/21 04:16 Labs: Abnormal Lab Results - Last 24 Hours (Table) 04/08/21 04/08/21 Range/Units 04:16 06:17 RBC 3.05 L (3.80-5.40) m/uL Hgb 8.4 L D (11.4-16.0) gm/dL Hct 26.1 L (34.0-46.0) % Calcium 8.3 L (8.4-10.2) mg/dL Microbiology - Last 24 Hours (Table) 04/03/21 13:00 Anaerobic Culture - Preliminary Knee - Left 04/03/21 13:00 Anaerobic Culture - Final Knee - Left 04/03/21 13:00 Anaerobic Culture - Preliminary Knee - Left 04/03/21 13:00 Anaerobic Culture - Final Knee - Left 04/03/21 13:00 Anaerobic Culture - Final Knee - Left 04/04/21 17:07 Blood Culture - Preliminary Blood No Growth after 72 hours 04/03/21 13:00 Gram Stain - Preliminary Knee - Left Tissue Culture - Preliminary Pantoea agglomerans 04/03/21 13:00 Gram Stain - Final Knee - Left Tissue Culture - Final Assessment and Plan Assessment: Status-post revision left total knee arthroplasty as part of a staged procedure on 04/03/21. Post-operative day #5. Plan: - Weight bear as tolerated on operative leg with a walker. - Do not remove wound vac. Our plan is to keep the current wound vac in place for 2 weeks. - Aspirin 81mg BID x 4 weeks for DVT prophylaxis. - Internal medicine for sidra-operative medical management. - Infectious disease has been consulted for antibiotic recommendations. PICC line ordered to be placed today. - Intra-operative cultures showing staphylococcus epidermidis. - Spoke to [facility] family service caseworker today. Discharge plan is to rehab for IV antibiotics. Will plan for discharge tomorrow, if medically cleared.
[2021-04-08] MEDS: ACETAMINOPHEN TAB 325 MG TAB PO PRN (16:34)
[2021-04-08] MEDS: SENNOSIDES-DOCUSATE SODIUM 1 EACH TAB PO SCH (19:51)
[2021-04-08] MEDS: CALCIUM CARBONATE 500 MG CHEWABLE PO PRN (19:55)
--- NOTE | 2021-04-08 23:22 | P.PN ---
Subjective Progress Note Date: 04/08/21 Patient is a 50-year-old female admitted to the hospital for "totally. Prosthetic joint infection antibiotic spacer placed placement, revision and total knee arthroplasty on the left side, patient presently has a wound VAC/surgical drain. Patient was having nausea vomiting all night and patient is on multiple medications including Zofran, Tigan, along with the Reglan and Benadryl for extra pleural side effects patient was started on Ativan patient is still with nauseous today although much improved. Patient is also on Protonix. Patient does have history of hypertension on multiple blood pressure medications. Patient pain is fairly well-controlled patient does have bowel sounds did not move her bowel yet. 04/05/2021 Patient nausea significant improved today scopolamine patch was removed. Patient feels much better but didn't sleep last night because of nausea. Patient is complaining of some pain in the left leg didn't pass gas did urinate fully catheter was removed. 04/06/2021 Patient is occasionally complaining of nausea although much better controlled compared to couple days ago. 04/07/2021 Patient looks much better today and nausea smoking improved over the other overnight events. 04/08/2021 Patient is seen and evaluated this morning and denies any overnight issues. Mario benavidez states that she continues to be nauseated but no vomiting or dry heaving. Patient is tolerating diet although reports to decreased oral intake and not having much of an appetite. Patient with wound vac to the left knee and tolerating well. Patient to receive a PICC line for continued IV antibiotic therapy with ID following closely. Patient with continued weakness and pain of the left knee. Social work following and working on an accepting facility. Review of systems: Constitutional: Denied any fatigue denied any fever. Cardio vascular: denied any chest pain, palpitations Gastrointestinal: reports occasional nausea, no reports of vomiting Pulmonary: Denied any shortness of breath cough Neurologic denied any new focal deficits All inpatient medications were reviewed and appropriate changes in these medications as dictated in the interval history and assessment and plan. Active Medications Acetaminophen (Acetaminophen Tab 325 Mg Tab) 650 mg PO Q6HR PRN PRN Reason: Fever and/ or Mild Pain Last Admin: 04/08/21 16:34 Dose: 650 mg Documented by: Hydrocodone Bitart/Acetaminophen (Hydrocodone/Apap 10-325mg 1 Each Tab) 1 each PO Q4HR PRN PRN Reason: Pain Last Admin: 04/08/21 19:52 Dose: 1 each Documented by: Amlodipine Besylate (Amlodipine 5 Mg Tab) [facility] [place] Admin: 04/08/21 07:31 Dose: 5 mg Documented by: Aspirin (Aspirin 81 Mg) 81 mg PO BID [facility] Last Admin: 04/08/21 19:51 Dose: 81 mg Documented by: Calcium Carbonate/Glycine (Calcium Carbonate 500 Mg Chewable) 500 mg PO QID PRN PRN Reason: Heartburn Last Admin: 04/08/21 19:55 Dose: 500 mg Documented by: Desvenlafaxine Succinate (Desvenlafaxine Succinate 50 Mg Tab.Er.24h) 100 mg PO [facility] Last Admin: 04/08/21 07:33 Dose: 100 mg Documented by: Gabapentin (Gabapentin 300 Mg Cap) 300 mg PO TID [facility] Last Admin: 04/08/21 20:59 Dose: 300 mg Documented by: Hydromorphone HCl (Hydromorphone 1 Mg/Ml 1 Ml Syringe) 1 mg IVP Q3HR PRN PRN Reason: Pain Scale 7 to 10 Last Admin: 04/05/21 21:16 Dose: 1 mg Documented by: Hydromorphone HCl (Hydromorphone 0.2 Mg/1 Ml Syringe) 0.2 mg IVP Q3HR PRN PRN Reason: Pain Scale 1 to 3 Hydromorphone HCl (Hydromorphone 1 Mg/Ml 1 Ml Syringe) 0.5 mg IVP Q3HR PRN PRN Reason: Pain Scale 4 to 6 Hydroxyzine Pamoate (Hydroxyzine Pamoate 25 Mg Cap) 25 mg PO Q4HR PRN PRN Reason: Nausea, Anxiety, Pain Control Last Admin: 04/08/21 19:52 Dose: 25 mg Documented by: Lactated Ringer's (Lactated Ringers) 1,000 mls @ 100 mls/hr IV .Q10H [facility] Last Admin: 04/08/21 07:41 Dose: Not Given Documented by: Vancomycin HCl 2,500 mg/ (Sodium Chloride) 500 mls @ 167 mls/hr IVPB Q12H [facility] Last Admin: 04/08/21 17:06 Dose: 167 mls/hr Documented by: Cefepime HCl 2 gm/ Sodium (Chloride) 100 mls @ 25 mls/hr IVPB Q8HR [facility] Last Admin: 04/08/21 15:02 Dose: 25 mls/hr Documented by: Lidocaine HCl (Lidocaine 1% (10mg/Ml) For Iv Start) 0.1 ml INTRADERMA PER PROTOCOL PRN PRN Reason: IV Start Stop: 05/03/21 07:48 Lorazepam (Lorazepam 2 Mg/Ml Inj) 1 mg IV Q6HR PRN PRN Reason: Anxiety Last Admin: 04/07/21 21:04 Dose: 1 mg Documented by: Losartan Potassium (Losartan 50 Mg Tab) 100 mg PO [facility] Last Admin: 04/08/21 07:32 Dose: 100 mg Documented by: Metoclopramide HCl (Metoclopramide 5 Mg/Ml 2 Ml Vial) 5 mg IVP Q6HR PRN PRN Reason: Nausea And Vomiting Last Admin: 04/08/21 07:33 Dose: 5 mg Documented by: Metoprolol Succinate (Metoprolol Succinate (Er) 25 Mg Tab.Er.24h) 25 mg PO [facility] Last Admin: 04/08/21 07:32 Dose: 25 mg Documented by: Miscellaneous Information (Magnesium Replacement Protocol 1 Each Misc) 1 each MISCELLANE DAILY PRN; Protocol PRN Reason: Per Protocol Miscellaneous Information (Potassium Replacement Protocol 1 Each Misc) 1 each MISCELLANE DAILY PRN; Protocol PRN Reason: Per Protocol Montelukast Sodium (Montelukast 10 Mg Tab) 10 mg PO DAILY [facility] Last Admin: 04/08/21 07:32 Dose: 10 mg Documented by: Mupirocin (Mupirocin 2% Oint 22 Gm Tube) 1 applic NASAL TID [facility] Last Admin: 04/08/21 19:53 Dose: 1 applic Documented by: Naloxone HCl (Naloxone 0.4 Mg/Ml 1 Ml Vial) 0.2 mg IV Q2M PRN PRN Reason: Opioid Reversal Stop: 05/03/21 17:10 Ondansetron HCl (Ondansetron 4 Mg/2 Ml Vial) 4 mg IVP Q8HR PRN PRN Reason: Nausea And Vomiting Last Admin: 04/06/21 14:31 Dose: 4 mg Documented by: Pantoprazole Sodium (Pantoprazole 40 Mg/10 Ml Vial) 40 mg IVP BID [facility] Last Admin: 04/08/21 19:51 Dose: 40 mg Documented by: Senna/Docusate Sodium (Sennosides-Docusate Sodium 1 Each Tab) 2 each PO HS [facility] Last Admin: 04/08/21 19:51 Dose: 2 each Documented by: Trimethobenzamide HCl (Trimethobenzamide 100 Mg/Ml 2 Ml Vial) 200 mg IM Q6HR PRN PRN Reason: Vomiting Last Admin: 04/04/21 13:42 Dose: 200 mg Documented by: PHYSICAL EXAMINATION: GENERAL: The patient is alert and oriented x3, not in any acute distress. Well developed, well nourished. Obese HEENT: Pupils are round and equally reacting to light. EOMI. No scleral icterus. No conjunctival pallor. Normocephalic, atraumatic. No pharyngeal erythema. No thyromegaly. CARDIOVASCULAR: S1 and S2 present. No murmurs, rubs, or gallops. PULMONARY: Chest is clear to auscultation, no wheezing or crackles. ABDOMEN: Soft, nontender, nondistended, normoactive bowel sounds. No palpable organomegaly. MUSCULOSKELETAL: No joint swelling or deformity. Left knee post-surgical wound with a wound VAC. EXTREMITIES: No cyanosis, clubbing, or pedal edema. NEUROLOGICAL: Gross neurological examination did not reveal any focal deficits. SKIN: No rashes. 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 Patient is presently on IV vancomycin. Patient receiving PICC line for continued IV abx in the outpatient setting -Severe nausea: improved now -Hypokalemia secondary to volume loss and vomiting. resumed potassium supplementation and will need on a daily basis -History of asthma without any acute exacerbation at this time -Gastroesophageal reflux disease -Obesity, sleep apnea uses CPAP machine at home -osteoarthritis -Leukocytosis reactive secondary to surgery -Depression patient was started on Pristiq -DVT prophylaxis: As per primary service -Full code Plan: Patient to continue with IV antibiotics with ID following, patient to receive a PICC line for continued therapy outpatient Continue current medications and symptomatic relief of nausea and vomiting Encouraged oral intake Encouraged increased activity as tolerated with orthopedic restrictions Continue with wound vac and local wound care Social work following and working on accepting facility for continued PT/OT therapy and will need IV antibiotics on discharge Will continue to follow along with orthopedics during hospitalization. Thank you for this consultation. Objective - Vital Signs Vital signs: Vital Signs Temp 97.8 F 04/08/21 07:23 Pulse 83 04/08/21 07:23 Resp 18 04/08/21 07:23 BP 127/70 04/08/21 07:23 Pulse Ox 97 04/08/21 07:23 Intake & Output 04/07/21 04/08/21 04/08/21 18:59 06:59 18:59 Intake Total 1480 Balance 1480 Intake: Intake, IV Titration 1000 Amount Sodium Chloride 0.9% 50 500 ml @ 0 mls/hr IV .STK-MED ONE with ceFAZolin 2,000 mg Rx#:[id number] Vancomycin 2,500 mg In 500 Sodium Chloride 0.9% 500 ml 500 ml @ 167 mls/hr IVPB Q12H [facility] Rx#: [id number] Oral 480 Other: Voiding Method Toilet # Voids 1 2 - Labs CBC & Chem 7: 04/08/21 06:17 04/08/21 04:16 Labs: Abnormal Lab Results - Last 24 Hours (Table) 04/07/21 04/08/21 04/08/21 Range/Units 04:03 04:16 06:17 RBC 3.05 L (3.80-5.40) m/uL Hgb 8.4 L D (11.4-16.0) gm/dL Hct 26.1 L (34.0-46.0) % ESR 52 H (0-20) mm/Hr Calcium 8.3 L (8.4-10.2) mg/dL Microbiology - Last 24 Hours (Table) 04/03/21 13:00 Anaerobic Culture - Preliminary Knee - Left 04/03/21 13:00 Anaerobic Culture - Final Knee - Left 04/03/21 13:00 Anaerobic Culture - Preliminary Knee - Left 04/03/21 13:00 Anaerobic Culture - Final Knee - Left 04/03/21 13:00 Anaerobic Culture - Final Knee - Left 04/04/21 17:07 Blood Culture - Preliminary Blood No Growth after 72 hours 04/03/21 13:00 Gram Stain - Preliminary Knee - Left Tissue Culture - Preliminary Pantoea agglomerans 04/03/21 13:00 Gram Stain - Final Knee - Left Tissue Culture - Final
--- NOTE | 2021-04-08 23:39 | P.PN ---
Subjective Progress Note Date: 04/08/21 Principal diagnosis: Left knee septic arthritis Patient is a 50-year-old female with a past medical history significant for left knee septic arthritis secondary to Staphylococcus epidermidis completed IV vancomycin therapy admitted to the hospital for stage II procedure which was completed on 04/03/2021. On today's evaluation that is 04/08/2021, the patient remains to be afebrile, patient is feeling better no further nausea or vomiting has been reported, no abdominal pain no chest pain shortness of breath or cough. Pain to the left knee is currently controlled Objective - Vital Signs Vital signs: Vital Signs Temp 97.8 F 04/08/21 07:23 Pulse 83 04/08/21 07:23 Resp 18 04/08/21 07:23 BP 127/70 04/08/21 07:23 Pulse Ox 97 04/08/21 07:23 Intake & Output 04/07/21 04/08/21 04/08/21 18:59 06:59 18:59 Intake Total 1480 Balance 1480 Intake: Intake, IV Titration 1000 Amount Sodium Chloride 0.9% 50 500 ml @ 0 mls/hr IV .STK-MED ONE with ceFAZolin 2,000 mg Rx#:[id number] Vancomycin 2,500 mg In 500 Sodium Chloride 0.9% 500 ml 500 ml @ 167 mls/hr IVPB Q12H [facility] Rx#: [id number] Oral 480 Other: Voiding Method Toilet # Voids 1 2 - Exam GENERAL DESCRIPTION: Middle-age female lying in bed in no distress RESPIRATORY SYSTEM: Unlabored breathing , decreased breath sounds at bases HEART: S1 S2 regular rate and rhythm , ABDOMEN: Soft , no tenderness EXTREMITIES: Left knee is currently covered with a wound VAC - Labs CBC & Chem 7: 04/08/21 06:17 04/08/21 04:16 Labs: Abnormal Lab Results - Last 24 Hours (Table) 04/08/21 04/08/21 Range/Units 04:16 06:17 RBC 3.05 L (3.80-5.40) m/uL Hgb 8.4 L D (11.4-16.0) gm/dL Hct 26.1 L (34.0-46.0) % Calcium 8.3 L (8.4-10.2) mg/dL Microbiology - Last 24 Hours (Table) 04/03/21 13:00 Anaerobic Culture - Preliminary Knee - Left 04/03/21 13:00 Anaerobic Culture - Final Knee - Left 04/03/21 13:00 Anaerobic Culture - Preliminary Knee - Left 04/03/21 13:00 Anaerobic Culture - Final Knee - Left 04/03/21 13:00 Anaerobic Culture - Final Knee - Left 04/04/21 17:07 Blood Culture - Preliminary Blood No Growth after 72 hours 04/03/21 13:00 Gram Stain - Preliminary Knee - Left Tissue Culture - Preliminary Pantoea agglomerans 04/03/21 13:00 Gram Stain - Final Knee - Left Tissue Culture - Final Assessment and Plan (1) Septic arthritis Current Visit: Yes Status: Acute Code(s): M00.9 - PYOGENIC ARTHRITIS, UNSPECIFIED SNOMED Code(s): 340302346 Plan: Patient with left knee septic arthritis in this patient admitted to the hospital was stage II procedure which was completed on 04/03/2021, unfortunately OR cultures are growing staph epi as well as gram-negative Pantoea , patient to have history of penicillin ALLERGY but no anaphylaxis. Patient to continue with cefepime 2 g every 8 hours , discontinue vancomycin, she will need a PICC line and a 6 week course of IV cefepime followed by prolonged suppressive oral antibiotic therapy Time with Patient: Less than 30
[2021-04-09] MEDS: HYDROcodone/APAP 10-325MG 1 EACH TAB PO PRN ×5 (00:06→17:41)
[2021-04-09] MEDS: CEFEPIME 2 GM in SODIUM CHLORIDE 0.9% 100 ML IVPB SCH ×3 (00:06→15:00)
[2021-04-09] MEDS: hydrOXYzine pamoate 25 MG CAP PO PRN ×5 (00:07→17:42)
[2021-04-09] MEDS: CALCIUM CARBONATE 500 MG CHEWABLE PO PRN ×2 (04:19→12:20)
[2021-04-09] MEDS: LACTATED RINGERS 1,000 ML IV SCH ×2 (04:41→09:33)
[2021-04-09 06:38] LABS: African American GFR (CKD) >90 (>60 ml/min/1.73 sqM); Non-African American GFR(CKD) >90 (>60 ml/min/1.73 sqM)
[2021-04-09 06:52] LABS: Prothrombin Time 10.6 sec (9.0-12.0)
[2021-04-09 07:17] LABS: Partial Thromboplastin Time 21.2 sec (22.0-30.0)
[2021-04-09] MEDS: DESVENLAFAXINE SUCCINATE 50 MG TAB.ER.24H PO SCH (08:42)
[2021-04-09] MEDS: GABAPENTIN 300 MG CAP PO SCH ×2 (08:42→15:03)
[2021-04-09] MEDS: PANTOPRAZOLE 40 MG/10 ML VIAL IVP SCH (08:43)
[2021-04-09] MEDS: LOSARTAN 50 MG TAB PO SCH (08:43)
[2021-04-09] MEDS: METOPROLOL SUCCINATE (ER) 25 MG TAB.ER.24H PO SCH (08:43)
[2021-04-09] MEDS: MONTELUKAST 10 MG TAB PO SCH (08:43)
[2021-04-09] MEDS: amLODIPine 5 MG TAB PO SCH (08:43)
[2021-04-09] MEDS: ASPIRIN 81 MG PO SCH (08:43)
[2021-04-09] MEDS: MUPIROCIN 2% OINT 22 GM TUBE NASAL SCH ×2 (09:05→15:03)
--- NOTE | 2021-04-09 10:14 | P.DS ---
Providers Date of admission: 04/06/21 11:30 Expected date of discharge: 04/09/21 Attending physician: Blue Montesinos Consults: 04/03/21 17:17 Consult Physician Routine Consulting Provider: Kayla Brown Consult Reason/Comments: antibiotic recommendations Do you want consulting provider notified?: Yes 04/04/21 11:03 Consult Physician Routine Consulting Provider: Mick Zuniga Consult Reason/Comments: medical management Do you want consulting provider notified?: Already Contacted 04/04/21 12:33 Consult Physician Urgent Consulting Provider: Ellie Ariza Consult Reason/Comments: nausea and vomiting Do you want consulting provider notified?: Yes Primary care physician: [facility] Course: This is 50- year old female who has been followed by Dr. Montesinos for continued complaints of left knee pain following a total knee arthroplasty in July 2020 at an outside hospital. Patient elected to undergo a two-stage left total knee arthroplasty revision. Patient underwent stage I revision total left knee with articulating spacer on 01/11/[address] Montesinos. Patient received 6 weeks of IV antibiotics. Once completed, she underwent a 2 week holiday off antibodies, her knee was re-aspirated and inflammatory labs were drawn. Cultures and inflammatory labs were negative. Therefore patient elected to undergo reimplantation of revision total knee arthroplasty. Patient was seen pre- operatively by her primary care physician Dr. French and cleared for surgery. Patient underwent a revision left total knee arthroplasty as part of a staged procedure on 04/03/[address] Montesinos. The procedure was performed without complication or sequelae. The patient is doing fairly well postoperatively. Vital signs and labs are stable on post- operative day #6. Intra-operative cultures positive for staphylococcus epidermidis. Dr. Brown infectious disease was consulted to manage antibiotics and PICC line was placed yesterday. Patient was examined bedside today. Patient states she is overall doing well and her pain is controlled at this time. She is able to ambulate with a walker with minimal assistance. Patient is tolerating her diet well with mild nausea, no vomiting. She is voiding with issues. Patient has had a bowel movement post- operatively. Patient is comfortable being discharged to rehab today. Patient denies chest pain, shortness of breath, vomiting, fevers, chills. On examination, the patient is sitting up in the bed in no apparent distress. She is alert and orientated 3. On inspection of the left knee, there is a wound vac in place which has a good seal at this time. Motor and sensory function intact of the left lower extremity. The left lower extremity is warm and well- perfused. The calves are soft and non-tender to palpation bilaterally, no evidence of DVT. Patient is discharged to rehab today in good condition, pending medical clearance. Patient will follow-up with Dr. Montesinos in the office next week. Please see med rec for accurate list of discharge medication. Wound vac should remain in place until her follow-up appointment in the office with Dr. Montesinos. Plan - Discharge Summary Discharge Rx Participant: Yes New Discharge Prescriptions: New Aspirin 81 mg PO BID 30 Days #60 tab Docusate [Colace] 100 mg PO BID #60 capsule HYDROcodone/APAP 10-325MG [Leonard 10-325] 1 tab PO Q6HR PRN 7 Days #28 tab PRN Reason: Pain No Action Pantoprazole [Protonix] 40 mg PO QAM Metoprolol Succinate (ER) [Toprol XL] 25 mg PO QAM Cetirizine HCl [Zyrtec] 10 mg PO DAILY amLODIPine BESYLATE 5 mg PO QAM Multivitamins, Thera [Multivitamin (formulary)] 1 tab PO DAILY [place]-3/Dha/Epa/Fish Oil [Fish Oil 500 mg Softgel] 1 each PO DAILY Montelukast Sodium [Singulair] 10 mg PO DAILY Desvenlafaxine Succinate [Pristiq] 100 mg PO QAM hydroCHLOROthiazide 25 mg PO QAM Losartan Potassium 100 mg PO QAM Hydrocodone/Acetaminphen - ?Mg 1 tab PO DIRECTED PRN PRN Reason: Pain Mupirocin [Mupirocin 2% with applicator] 1 applic NASAL TID Acetaminophen Tab [Tylenol] 650 mg PO Q6HR PRN tab PRN Reason: Fever And/ Or Pain Gabapentin 300 mg PO TID Discharge Medication List Cetirizine HCl [Zyrtec] 10 mg PO DAILY 01/08/21 [History] Desvenlafaxine Succinate [Pristiq] 100 mg PO QAM 01/08/21 [History] Hydrocodone/Acetaminphen - ?Mg 1 tab PO DIRECTED PRN 01/08/21 [History] Losartan Potassium 100 mg PO QAM 01/08/21 [History] Metoprolol Succinate (ER) [Toprol XL] 25 mg PO QAM 01/08/21 [History] Montelukast Sodium [Singulair] 10 mg PO DAILY 01/08/21 [History] Mupirocin [Mupirocin 2% with applicator] 1 applic NASAL TID 01/08/21 [History] Pantoprazole [Protonix] 40 mg PO QAM 01/08/21 [History] amLODIPine BESYLATE 5 mg PO QAM 01/08/21 [History] hydroCHLOROthiazide 25 mg PO QAM 01/08/21 [History] Acetaminophen Tab [Tylenol] 650 mg PO Q6HR PRN tab 01/17/21 [Rx] Multivitamins, Thera [Multivitamin (formulary)] 1 tab PO DAILY 04/01/21 [History] [place]-3/Dha/Epa/Fish Oil [Fish Oil 500 mg Softgel] 1 each PO DAILY 04/01/21 [History] Gabapentin 300 mg PO TID 04/02/21 [History] Aspirin 81 mg PO BID 30 Days #60 tab 04/09/21 [Rx] Docusate [Colace] 100 mg PO BID #60 capsule 04/09/21 [Rx] HYDROcodone/APAP 10-325MG [Leonard 10-325] 1 tab PO Q6HR PRN 7 Days #28 tab 04/09/21 [Rx] Follow up Appointment(s)/Referral(s): [facility], [NON-STAFF] - ([facility] will call you to schedule your in home nursing and physical therapy visits. ) Kayla Brown MD [STAFF PHYSICIAN] - 1 Week Activity/Diet/Wound Care/Special Instructions: Weight bear as tolerated on operative leg with a walker. Keep wound vac in place until follow-up appointment. Take pain medications as prescribed. Aspirin 81mg BID x4 weeks for blood clot prevention. Antibiotics per infectious disease. Follow-up in the office with Dr. Montesinos in 2 weeks. Call the office with any questions or concerns, [employer] is the wound vac supplier. Please call them at [phone] if you have questions about the wound vac.
[2021-04-09 14:28] VITALS: BP 158/110; PULSE 89; RESP 18; TEMP 98.5
--- NOTE | 2021-04-10 00:47 | P.PN ---
Subjective Progress Note Date: 04/09/21 Patient is a 50-year-old female admitted to the hospital for "totally. Prosthetic joint infection antibiotic spacer placed placement, revision and total knee arthroplasty on the left side, patient presently has a wound VAC/surgical drain. Patient was having nausea vomiting all night and patient is on multiple medications including Zofran, Tigan, along with the Reglan and Benadryl for extra pleural side effects patient was started on Ativan patient is still with nauseous today although much improved. Patient is also on Protonix. Patient does have history of hypertension on multiple blood pressure medications. Patient pain is fairly well-controlled patient does have bowel sounds did not move her bowel yet. 04/05/2021 Patient nausea significant improved today scopolamine patch was removed. Patient feels much better but didn't sleep last night because of nausea. Patient is complaining of some pain in the left leg didn't pass gas did urinate fully catheter was removed. 04/06/2021 Patient is occasionally complaining of nausea although much better controlled compared to couple days ago. 04/07/2021 Patient looks much better today and nausea smoking improved over the other overnight events. 04/08/2021 Patient is seen and evaluated this morning and denies any overnight issues. Mario benavidez states that she continues to be nauseated but no vomiting or dry heaving. Patient is tolerating diet although reports to decreased oral intake and not having much of an appetite. Patient with wound vac to the left knee and tolerating well. Patient to receive a PICC line for continued IV antibiotic therapy with ID following closely. Patient with continued weakness and pain of the left knee. Social work following and working on an accepting facility. 04/09/2021 Patient seen in follow up today and continues to be tearful and full of emotions on exam. Patient has been accepted at [facility] and auth obtained and will be discharged today. Patient did receive picc line and continues with IV antibiotics and ID following. Continue with wound vac and local wound care. Patient is having some left knee tenderness and tearful when talking about the pain. Pain management per primary service. Patient is afebrile and denies any chest pain or shortness of breath. Review of systems: Constitutional: Denied any fatigue denied any fever. Cardio vascular: denied any chest pain, palpitations Gastrointestinal: reports occasional nausea, no reports of vomiting Pulmonary: Denied any shortness of breath cough Neurologic denied any new focal deficits All inpatient medications were reviewed and appropriate changes in these medications as dictated in the interval history and assessment and plan. Active Medications Acetaminophen (Acetaminophen Tab 325 Mg Tab) 650 mg PO Q6HR PRN PRN Reason: Fever and/ or Mild Pain Last Admin: 04/08/21 16:34 Dose: 650 mg Documented by: Hydrocodone Bitart/Acetaminophen (Hydrocodone/Apap 10-325mg 1 Each Tab) 1 each PO Q4HR PRN PRN Reason: Pain Last Admin: 04/08/21 19:52 Dose: 1 each Documented by: Amlodipine Besylate (Amlodipine 5 Mg Tab) 5 mg PO QAM [facility] Last Admin: 04/08/21 07:31 Dose: 5 mg Documented by: Aspirin (Aspirin 81 Mg) 81 mg PO BID [facility] Last Admin: 04/08/21 19:51 Dose: 81 mg Documented by: Calcium Carbonate/Glycine (Calcium Carbonate 500 Mg Chewable) 500 mg PO QID PRN PRN Reason: Heartburn Last Admin: 04/08/21 19:55 Dose: 500 mg Documented by: Desvenlafaxine Succinate (Desvenlafaxine Succinate 50 Mg Tab.Er.24h) 100 mg PO QAM [facility] Last Admin: 04/08/21 07:33 Dose: 100 mg Documented by: Gabapentin (Gabapentin 300 Mg Cap) 300 mg PO TID [facility] Last Admin: 04/08/21 20:59 Dose: 300 mg Documented by: Hydromorphone HCl (Hydromorphone 1 Mg/Ml 1 Ml Syringe) 1 mg IVP Q3HR PRN PRN Reason: Pain Scale 7 to 10 Last Admin: 04/05/21 21:16 Dose: 1 mg Documented by: Hydromorphone HCl (Hydromorphone 0.2 Mg/1 Ml Syringe) 0.2 mg IVP Q3HR PRN PRN Reason: Pain Scale 1 to 3 Hydromorphone HCl (Hydromorphone 1 Mg/Ml 1 Ml Syringe) 0.5 mg IVP Q3HR PRN PRN Reason: Pain Scale 4 to 6 Hydroxyzine Pamoate (Hydroxyzine Pamoate 25 Mg Cap) 25 mg PO Q4HR PRN PRN Reason: Nausea, Anxiety, Pain Control Last Admin: 04/08/21 19:52 Dose: 25 mg Documented by: Lactated Ringer's (Lactated Ringers) 1,000 mls @ 100 mls/hr IV .Q10H [facility] Last Admin: 04/08/21 07:41 Dose: Not Given Documented by: Vancomycin HCl 2,500 mg/ (Sodium Chloride) 500 mls @ 167 mls/hr IVPB Q12H [facility] Last Admin: 04/08/21 17:06 Dose: 167 mls/hr Documented by: Cefepime HCl 2 gm/ Sodium (Chloride) 100 mls @ 25 mls/hr IVPB Q8HR [facility] Last Admin: 04/08/21 15:02 Dose: 25 mls/hr Documented by: Lidocaine HCl (Lidocaine 1% (10mg/Ml) For Iv Start) 0.1 ml INTRADERMA PER PROTOCOL PRN PRN Reason: IV Start Stop: 05/03/21 07:48 Lorazepam (Lorazepam 2 Mg/Ml Inj) 1 mg IV Q6HR PRN PRN Reason: Anxiety Last Admin: 04/07/21 21:04 Dose: 1 mg Documented by: Losartan Potassium (Losartan 50 Mg Tab) 100 mg PO [facility] Last Admin: 04/08/21 07:32 Dose: 100 mg Documented by: Metoclopramide HCl (Metoclopramide 5 Mg/Ml 2 Ml Vial) 5 mg IVP Q6HR PRN PRN Reason: Nausea And Vomiting Last Admin: 04/08/21 07:33 Dose: 5 mg Documented by: Metoprolol Succinate (Metoprolol Succinate (Er) 25 Mg Tab.Er.24h) 25 mg PO [facility] Last Admin: 04/08/21 07:32 Dose: 25 mg Documented by: Miscellaneous Information (Magnesium Replacement Protocol 1 Each Misc) 1 each MISCELLANE DAILY PRN; Protocol PRN Reason: Per Protocol Miscellaneous Information (Potassium Replacement Protocol 1 Each Misc) 1 each MISCELLANE DAILY PRN; Protocol PRN Reason: Per Protocol Montelukast Sodium (Montelukast 10 Mg Tab) 10 mg PO DAILY [facility] Last Admin: 04/08/21 07:32 Dose: 10 mg Documented by: Mupirocin (Mupirocin 2% Oint 22 Gm Tube) 1 applic NASAL TID [facility] Last Admin: 04/08/21 19:53 Dose: 1 applic Documented by: Naloxone HCl (Naloxone 0.4 Mg/Ml 1 Ml Vial) 0.2 mg IV Q2M PRN PRN Reason: Opioid Reversal Stop: 05/03/21 17:10 Ondansetron HCl (Ondansetron 4 Mg/2 Ml Vial) 4 mg IVP Q8HR PRN PRN Reason: Nausea And Vomiting Last Admin: 04/06/21 14:31 Dose: 4 mg Documented by: Pantoprazole Sodium (Pantoprazole 40 Mg/10 Ml Vial) 40 mg IVP BID [facility] Last Admin: 04/08/21 19:51 Dose: 40 mg Documented by: Senna/Docusate Sodium (Sennosides-Docusate Sodium 1 Each Tab) 2 each PO HS [facility] Last Admin: 04/08/21 19:51 Dose: 2 each Documented by: Trimethobenzamide HCl (Trimethobenzamide 100 Mg/Ml 2 Ml Vial) 200 mg IM Q6HR PRN PRN Reason: Vomiting Last Admin: 04/04/21 13:42 Dose: 200 mg Documented by: PHYSICAL EXAMINATION: GENERAL: The patient is alert and oriented x3, not in any acute distress. Well developed, well nourished. Obese, anxious and tearful HEENT: Pupils are round and equally reacting to light. EOMI. No scleral icterus. No conjunctival pallor. Normocephalic, atraumatic. No pharyngeal erythema. No th yromegaly. CARDIOVASCULAR: S1 and S2 present. No murmurs, rubs, or gallops. PULMONARY: Chest is clear to auscultation, no wheezing or crackles. ABDOMEN: Soft, nontender, nondistended, normoactive bowel sounds. No palpable organomegaly. MUSCULOSKELETAL: No joint swelling or deformity. Left knee post-surgical wound with a wound VAC. EXTREMITIES: No cyanosis, clubbing, or pedal edema. NEUROLOGICAL: Gross neurological examination did not reveal any focal deficits. SKIN: No rashes. 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 Patient is presently on IV vancomycin. Patient received PICC line for continued IV abx in the outpatient setting -Severe nausea: improved now -Hypokalemia secondary to volume loss and vomiting. resumed potassium supplementation and will need on a daily basis -History of asthma without any acute exacerbation at this time -Gastroesophageal reflux disease -Obesity, sleep apnea uses CPAP machine at home -osteoarthritis -Leukocytosis reactive secondary to surgery -Depression patient was started on Pristiq -DVT prophylaxis: As per primary service -Full code Plan: Patient to continue with IV antibiotics with ID following, patient received a PICC line for continued therapy outpatient Continue current medications and symptomatic relief of nausea and vomiting Encouraged oral intake Encouraged increased activity as tolerated with orthopedic restrictions Continue with wound vac and local wound care Social work following and has been accepted at [facility] for continued PT/OT therapy and will need IV antibiotics and going to [facility] today Will continue to follow along with orthopedics during hospitalization. Thank you for this consultation. Objective - Vital Signs Vital signs: Vital Signs Temp 98.0 F 04/09/21 08:25 Pulse 72 04/09/21 08:25 Resp 15 04/09/21 00:28 BP 111/68 04/09/21 08:25 Pulse Ox 97 04/09/21 08:25 Intake & Output 04/08/21 04/09/21 04/09/21 18:59 06:59 18:59 Other: # Voids 2 2 1 - Labs CBC & Chem 7: 04/08/21 06:17 04/09/21 05:22 Labs: Abnormal Lab Results - Last 24 Hours (Table) 04/09/21 Range/Units 05:22 APTT 21.2 L (22.0-30.0) sec Microbiology - Last 24 Hours (Table) 04/04/21 17:07 Blood Culture - Preliminary Blood No Growth after 96 hours 04/03/21 13:00 Gram Stain - Final Knee - Left Tissue Culture - Final Pantoea agglomerans
== END 2021-04-09 17:51 | DRG 467 ==
LOC: OR 10:31 → 4SSUR 16:45 → OR 04-04 05:05 → OBSVTOIN 04-06 11:30
PROVIDERS: ADMIT Orthopaedic Surgery; ATTEND Orthopaedic Surgery
PROC: 0SPD0EZ Removal of Articulating Spacer from Left Knee Joint, Open Approach (ICD-10-PCS; 2021-04-03)
PROC: 0SRD069 Replacement of Left Knee Joint with Oxidized Zirconium on Polyethylene Synthetic Substitute, Cemented, Open Approach (ICD-10-PCS; principal; 2021-04-03 12:00)
PROC: 02HV33Z Insertion of Infusion Device into Superior Vena Cava, Percutaneous Approach (ICD-10-PCS; 2021-04-08)
DX: T84.54XA Infection and inflammatory reaction due to internal left knee prosthesis, initial encounter (principal); Z68.42 Body mass index [BMI] 45.0-49.9, adult; Z47.33 Aftercare following explantation of knee joint prosthesis; E66.9 Obesity, unspecified; E87.6 Hypokalemia; F32.A Depression, unspecified; G47.30 Sleep apnea, unspecified; Z20.822 Contact with and (suspected) exposure to COVID-19; H91.90 Unspecified hearing loss, unspecified ear; I10 Essential (primary) hypertension; J45.909 Unspecified asthma, uncomplicated; K21.9 Gastro-esophageal reflux disease without esophagitis; M19.90 Unspecified osteoarthritis, unspecified site; Z79.2 Long term (current) use of antibiotics; Z79.899 Other long term (current) drug therapy; Z88.0 Allergy status to penicillin; Z88.6 Allergy status to analgesic agent; Z91.030 Bee allergy status
CPT/HCPCS: 36573; 64448; 64999; 76942; 80048; 80202; 82565; 83735; 84132; 85025; 85610; 85652; 85730; 86140; 87040; 87070; 87075; 87077; 87186; 87205; 87635

== ENCOUNTER 2021-04-24 09:54 | Inpatient (IN) | payer OTHER ==
[2021-04-23 09:32] VITALS: BMI 45.4
[~2021-04-24 09:54] MED LIST changes: -DEXAMETHASONE SOD PHOSPHATE 4 MG/ML 1 ML VIAL IV ONE; -HYDROmorphone 0.5 MG/0.5 ML SYRINGE IVP PRN; -LIDOCAINE 1% (10MG/ML) FOR IV START INTRADERMA PRN; -ONDANSETRON 4 MG/2 ML VIAL IVP ONE; -ROPIVACAINE/EPI/CLONIDINE/KET 50 ML SYRINGE MISCELLANE PRN; -TRANEXAMIC ACID 1,000 MG in SODIUM CHLORIDE 0.9% 100 ML IVPB ONE
[2021-04-24] MEDS ORDERED: ROPIVACAINE/EPI/CLONIDINE/KET 50 ML SYRINGE MISCELLANE PRN (11:35)
[2021-04-24] MEDS ORDERED: TRANEXAMIC ACID 1,000 MG in SODIUM CHLORIDE 0.9% 100 ML IVPB ONE ×2 (11:35→15:46)
[2021-04-24] MEDS ORDERED: LIDOCAINE 1% (10MG/ML) FOR IV START INTRADERMA PRN (13:55)
[2021-04-24] MEDS ORDERED: fentaNYL (PF) 50 MCG/ML 2 ML AMP IV PRN (13:55)
[2021-04-24] MEDS ORDERED: LACTATED RINGERS 1,000 ML IV ONE ×2 (14:50→16:34)
[2021-04-24 15:04] LABS: Basophils # (A) 0.1 k/uL (0-0.2); Basophils % (A) 1 %; Eosinophils % (A) 14 %; HCT 29.4 % (34.0-46.0); HGB 9.4 gm/dL (11.4-16.0); Hypochromasia Moderate; Lymphocytes # (A) 1.6 k/uL (1.0-4.8); Lymphocytes % (A) 23 %; MCH 26.4 pg (25.0-35.0); MCHC 31.9 g/dL (31.0-37.0); MCV 82.8 fL (80.0-100.0); Mean Platelet Volume 7.8; Monocytes # (A) 0.3 k/uL (0-1.0); Monocytes % (A) 5 %; Neutrophils # (A) 3.9 k/uL (1.3-7.7); Neutrophils % (A) 56 %; Platelet Count 308 k/uL (150-450); RBC 3.55 m/uL (3.80-5.40); RDW 14.3 % (11.5-15.5); WBC 7.1 k/uL (3.8-10.6)
[2021-04-24] MEDS ORDERED: oxyCODONE ER 10 MG TAB.ER.12H PO ONE (15:08)
[2021-04-24] MEDS ORDERED: DEXAMETHASONE SOD PHOSPHATE 4 MG/ML 1 ML VIAL IVP ONE (15:09)
[2021-04-24] MEDS ORDERED: PHENYLEPHRINE-0.9% NACL SYG 1,000 MCG/10 ML SYRINGE ONE (15:16)
[2021-04-24] MEDS ORDERED: fentaNYL (PF) 50 MCG/ML 2 ML AMP ONE (15:16)
[2021-04-24] MEDS ORDERED: NEOSTIGMINE 1 MG/ML 10 ML VIAL ONE (15:16)
[2021-04-24] MEDS ORDERED: MIDAZOLAM 2 MG/2 ML VIAL ONE (15:16)
[2021-04-24] MEDS ORDERED: TRANEXAMIC ACID 1,000 MG/10 ML VIAL ONE (15:16)
[2021-04-24] MEDS ORDERED: SODIUM CHLORIDE 0.9% 100 ML BAG ONE (15:16)
[2021-04-24] MEDS ORDERED: HYDROmorphone (PF) 1 MG/ML ONE (15:16)
[2021-04-24] MEDS ORDERED: SUCCINYLCHOLINE CHLORIDE VIAL 200 MG/10 ML VIAL IV ONE (15:16)
[2021-04-24] MEDS ORDERED: PROPOFOL 10 MG/ML 20 ML VIAL IV ONE (15:16)
[2021-04-24] MEDS ORDERED: ePHEDrine 50 MG/ML 1 ML VIAL ONE (15:16)
[2021-04-24] MEDS ORDERED: ROCURONIUM 10 MG/ML (5 ML VIAL) IV ONE (15:16)
[2021-04-24] MEDS ORDERED: diphenhydrAMINE 50 MG/ML 1 ML VIAL ONE (15:16)
[2021-04-24] MEDS ORDERED: LIDOCAINE 1% INJ 10MG/ML (20 ML MDV) ONE (15:16)
[2021-04-24] MEDS ORDERED: GLYCOPYRROLATE 0.2 MG/ML 2 ML VIAL ONE (15:16)
[2021-04-24] MEDS ORDERED: VANCOMYCIN 1,000 MG VIAL MISCELLANE ONE (16:06)
[2021-04-24] MEDS ORDERED: NALOXONE 0.4 MG/ML 1 ML VIAL IV PRN (17:40)
[2021-04-24] MEDS ORDERED: ONDANSETRON 4 MG/2 ML VIAL IVP PRN (17:42)
[2021-04-24] MEDS ORDERED: MAGNESIUM HYDROXIDE 2,400 MG/10 ML CUP PO PRN (17:42)
[2021-04-24] MEDS ORDERED: HYDROmorphone 1 MG/ML 1 ML SYRINGE IVP PRN (17:42)
[2021-04-24] MEDS ORDERED: HYDROmorphone 0.2 MG/1 ML SYRINGE IVP PRN (17:42)
[2021-04-24] MEDS ORDERED: HYDROcodone/APAP 10-325MG 1 EACH TAB PO PRN (17:42)
[2021-04-24] MEDS ORDERED: hydrOXYzine pamoate 25 MG CAP PO PRN (17:42)
--- NOTE | 2021-04-24 17:46 | P.OP ---
Date of Procedure: 04/24/21 Preoperative Diagnosis: 1. 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 BMI 45.6 Postoperative Diagnosis: Same Procedure(s) Performed: 1. Revision arthroplasty, left knee, polyethylene liner exchange 2. Extensive irrigation and debridement left knee Anesthesia: JANE Surgeon: Blue Montesinos Framing Carpenter #1: Nicolasa Figueroa Estimated Blood Loss (ml): 300 IV fluids (ml): 1,200 Pathology: other (Deep fluid cultures) Condition: stable Disposition: PACU Indications for Procedure: The patient is very pleasant 50-year-old female with a medical history signi ficant for having a BMI of 45.6 and a left periprosthetic knee infection. Her total knee was initially done by an outside rider in [facility]. She came to see me this fall for a second opinion. She was found to have a periprosthetic joint infection and a loose tibial base plate. She underwent placement of an articulating antibiotic spacer, 6 weeks of IV antibiotics, a 2 week holiday off antibiotics, and an aspiration of her knee which was not concerning for infection. She underwent a reimplantation proximally 2 weeks ago. Her cultures came back positive and at her appointment earlier this week the polyethylene liner had displaced from the tibial baseplate. I recommended a revision with a poly-exchange and an irrigation and debridement of the left knee. We discussed the potential risks and complications of surgery including but certainly not limited to risks from anesthesia, superficial infection, deep infection, continued periprosthetic joint infection, extensor mechanism problems, loosening, stiffness, DVT, PE, other medical complications, and inability to regain preinjury level of function, and possibly loss of life or limb. The patient understands high complication risk given her history of periprosthetic joint infection and her BMI 45.6. Operative Findings: There were large rust colored fluid collections both superficial to the capsule and within the joint. There is no hilary purulence. Description of Procedure: The patient was identified in preoperative holding and the correct left leg was marked with my initials. I reviewed the consent form with the patient and all for questions were answered. The patient was brought back to the operating room by anesthesia. She was positioned on the OR table where a general anesthetic and preoperative antibiotics were given. A tourniquet was applied to the proximal aspect of the left leg. The left leg was then prepped and draped in standard sterile fashion. Prior to starting surgery timeout was performed identifying the correct patient, operative extremity, and procedure. The patient's leg was then elevated for 2 minutes and the tourniquet was inflated to 300 mmHg. I began by making an incision with a scalpel the scar on the anterior aspect of the knee. There was a large rust colored fluid collection superficial to the capsule. This was swabbed and sent for culture. A medial parapatellar arthrotomy was made along the suture line. Another large rust colored fluid collection was found within the joint. This was swabbed and sent for cultures. At this point an extensive debridement was performed of both the medial and lateral gutter, retropatellar tissue, and superficial soft tissue. The wound was thoroughly irrigated with 3 L of pulsatile lavage. A 3 minute soaked with dilute Betadine was performed. A second washout with 3 L of pulsatile lavage was performed. The wound was then soaked with a chlorhexidine solution. Another 3 use of sterile saline was irrigated through the wound with pulsatile lavage. Finally a dilute peroxide solution was used to soak the wound followed by a 3 L sterile saline washout with pulsatile lavage. At this point the polyliner was placed verifying that the locking mechanism was engaged. The knee was reduced and found to be stable. A final 3 L of sterile saline was irrigated through the knee. 2 g of vancomycin powder was placed in the wound and a deep drain was placed. The capsule was closed with interrupted #1 PDS and a bidirectional barbed suture. A second drain was placed superficially and an additional 2 g of vancomycin powder was placed superficial to the capsule. A layered closure was then performed. Due to this being a revision an incisional wound VAC was applied. All drains were hooked up and found to have excellent seal. The leg was wrapped with web roll and an [place] wrap. The patient was awoken from her anesthetic, transferred from an or table to a gurney, and brought to recovery having tolerated the procedure well. Plan: The patient can weight-bear as tolerated on her left leg. She will need IV antibiotics under the direction of infectious disease. Anticipate long-term suppression with both IV and oral antibiotics. Drains can be discontinued when output is less than 100 mL's per shift. We can discontinue the incisional wound VAC prior to discharge
[2021-04-24] MEDS: LACTATED RINGERS 1,000 ML IV SCH (17:58)
[2021-04-24] MEDS ORDERED: HYDROmorphone 0.5 MG/0.5 ML SYRINGE IVP ONE (18:14)
[2021-04-24] MEDS: HYDROmorphone 1 MG/ML 1 ML SYRINGE IVP PRN (19:51)
[2021-04-24] MEDS ORDERED: PROMETHAZINE 25 MG TAB PO PRN (21:02)
[2021-04-24] MEDS ORDERED: ACETAMINOPHEN TAB 325 MG TAB PO PRN (21:16)
[2021-04-24] MEDS ORDERED: ALPRAZolam 0.25 MG TAB PO PRN (21:19)
[2021-04-24] MEDS ORDERED: CALCIUM CARBONATE 500 MG CHEWABLE PO PRN (21:19)
[2021-04-24] MEDS: HYDROcodone/APAP 10-325MG 1 EACH TAB PO PRN (22:21)
[2021-04-24] MEDS: GABAPENTIN 300 MG CAP PO SCH (22:21)
[2021-04-24] MEDS: ASPIRIN 81 MG PO SCH (22:21)
[2021-04-25] MEDS: HYDROmorphone 1 MG/ML 1 ML SYRINGE IVP PRN ×4 (02:49→23:28)
[2021-04-25] MEDS: HYDROcodone/APAP 10-325MG 1 EACH TAB PO PRN ×4 (04:34→19:46)
[2021-04-25 06:54] LABS: Glucose,Whole Blood 136 mg/dL (75-99)
[2021-04-25] MEDS: METOPROLOL TARTRATE 25 MG TAB PO SCH (07:49)
[2021-04-25] MEDS: DOCUSATE 100 MG CAP PO SCH ×2 (07:49→19:50)
[2021-04-25] MEDS: MULTIVITAMINS, THERA 1 EACH TAB PO SCH (07:49)
[2021-04-25] MEDS: ASPIRIN 81 MG PO SCH ×2 (07:49→19:50)
[2021-04-25] MEDS: GABAPENTIN 300 MG CAP PO SCH ×3 (07:49→19:45)
[2021-04-25] MEDS: PANTOPRAZOLE 40 MG TABLET PO SCH (07:49)
[2021-04-25] MEDS: MONTELUKAST 10 MG TAB PO SCH (07:49)
[2021-04-25] MEDS: CYCLOBENZAPRINE 10 MG TAB PO PRN ×4 (07:49→23:28)
[2021-04-25] MEDS: LORATADINE 10 MG TAB PO SCH (07:49)
[2021-04-25] MEDS: DESVENLAFAXINE SUCCINATE 50 MG TAB.ER.24H PO SCH (07:50)
[2021-04-25] MEDS: ceFAZolin 3 GM in SODIUM CHLORIDE 0.9% 100 ML IVPB SCH ×3 (07:50)
[2021-04-25] MEDS ORDERED: NON FORMULARY DRUG (Omega-3/Dha/Epa/Fish Oil [Fish Oil 500 Mg Softgel] 1 EACH Capsule) PO SCH (09:00)
[2021-04-25] MEDS ORDERED: FOS PO SCH (09:00)
[2021-04-25] MEDS ORDERED: hydroCHLOROthiazide 25 MG TAB PO SCH (09:00)
[2021-04-25] MEDS ORDERED: [UNRECOGNIZED DRUG - OTHER] PO SCH (09:00)
[2021-04-25] MEDS ORDERED: amLODIPine 5 MG TAB PO SCH (09:00)
[2021-04-25 09:26] LABS: Basophils # (A) 0.06 X 10*3/uL (0.00-0.10); Basophils % (A) 0.6 %; Eosinophils # (A) 0.04 X 10*3/uL (0.04-0.35); Eosinophils % (A) 0.4 %; Immature Grans, Automated 0.5 %; Lymphocytes # (A) 1.26 X 10*3/uL (0.90-5.00); Lymphocytes % (A) 13.2 %; MCH 24.6 pg (27.0-32.0); MCHC 29.2 g/dL (32.0-37.0); MCV 84.5 fL (80.0-97.0); Mean Platelet Volume 11.7 fL (9.5-12.2); Monocytes # (A) 0.73 X 10*3/uL (0.20-1.00); Monocytes % (A) 7.7 %; NRBC Per 100 WBC 0 /100 WBCS (0.0-0.0); Neutrophils # (A) 7.38 X 10*3/uL (1.80-7.70); Neutrophils % (A) 77.6 %; Platelet Count 296 X 10*3/uL (140-440); RBC 2.84 X 10*6/uL (4.10-5.20); RDW 14.7 % (11.5-14.5); WBC 9.52 X 10*3/uL (4.50-10.00)
[2021-04-25] MEDS: LOSARTAN 50 MG TAB PO SCH (09:26)
[2021-04-25] MEDS: LACTATED RINGERS 1,000 ML IV SCH (09:27)
--- NOTE | 2021-04-25 14:59 | P.CONS ---
History of Present Illness - Reason for Consult Consult date: 04/25/21 Medical management, hypertension history - Chief Complaint Left knee revision - History of Present Illness This is a pleasant 50-year-old female who was admitted under orthopedic services and most recently discharged to [facility] for continued IV antibiotics, wound care, physical therapy and is admitted under Dr. Montesinos and patient underwent revision of left knee arthroplasty and polyethylene liner exchange with extensive irrigation of the left knee and is postop day #1. Patient does have a past medical history of hypertension we are consulted for medical management. Patient is on hydrochlorothiazide, Norvasc, losartan, and metoprolol and will hold hydrochlorothiazide and losartan for now to monitor closely for postop hypotension. Blood pressures have been soft and will monitor closely and resume appropriate home medications. Patient has 2 Hemovacs and a wound VAC that has been applied to the left knee and there is some extensive left knee swelling noted and patient is using pain medication and ice to alleviate along with elevating. Patient was able to get up and walk with physical therapy today. Patient denies any chest pain, shortness of breath, or palpitations. Patient is afebrile. Patient denies any nausea or vomiting and tolerating diet. Review Of Systems: Constitutional: No fever, no chills, no night sweats. No weight change. No weakness, fatigue or lethargy. No daytime sleepiness. EENT: No headache. No blurred vision or double vision, no loss of vision. No loss of Hearing, no ringing in the ears, no dizziness. No nasal drainage or congestion. No epistaxis. No sore throat. Lungs: No shortness of breath, cough, no sputum production. No wheezing. Cardiovascular: No chest pain, no lower extremity edema. No palpitations. No paroxysmal nocturnal dyspnea. No orthopnea. No lightheadedness or dizziness. No syncopal episodes. Abdominal: No abdominal pain. No nausea, vomiting. No diarrhea. No constipation. No bloody or tarry stools.. No loss of appetite. Genitourinary: No dysuria, increased frequency, urgency. No urinary retention. Musculoskeletal: No myalgias. No muscle weakness, no gait dysfunction, no frequent falls. No back pain. No neck pain. Reports left knee pain and stabbing sensation Integumentary: No wounds, no lesions. No rash or pruritus. No unusual bruising. No change in hair or nails. Neurologic: No aphasia. No facial droop. No change in mentation. No head injury. No headache. No paralysis. No paresthesia. Psychiatric: No depression. Reports some anxiety. No mood swings. Endocrine: No abnormal blood sugars. No weight change. No excessive sweating or thirst. No cold intolerance. Active Medications Acetaminophen (Acetaminophen Tab 325 Mg Tab) 650 mg PO Q6HR PRN PRN Reason: Fever and/ or Pain Hydrocodone Bitart/Acetaminophen (Hydrocodone/Apap 10-325mg 1 Each Tab) 1 each PO Q4HR PRN PRN Reason: Pain Last Admin: 04/25/21 14:15 Dose: 1 each Documented by: Alprazolam (Alprazolam 0.25 Mg Tab) 0.25 mg PO TID PRN PRN Reason: Anxiety Last Admin: 04/25/21 09:04 Dose: 0.25 mg Documented by: Aspirin (Aspirin 81 Mg) 81 mg PO BID [facility] Last Admin: 04/25/21 07:49 Dose: 81 mg Documented by: Calcium Carbonate/Glycine (Calcium Carbonate 500 Mg Chewable) 500 mg PO QID PRN PRN Reason: Heartburn Last Admin: 04/24/21 22:22 Dose: 500 mg Documented by: Cyclobenzaprine HCl (Cyclobenzaprine 10 Mg Tab) 10 mg PO Q8HR PRN PRN Reason: Muscle Spasm Last Admin: 04/25/21 07:49 Dose: 10 mg Documented by: Desvenlafaxine Succinate (Desvenlafaxine Succinate 50 Mg Tab.Er.24h) 100 mg PO QAM [facility] Last Admin: 04/25/21 07:50 Dose: 100 mg Documented by: Docusate Sodium (Docusate 100 Mg Cap) 100 mg PO BID [facility] Last Admin: 04/25/21 07:49 Dose: 100 mg Documented by: Gabapentin (Gabapentin 300 Mg Cap) 300 mg PO TID [facility] Last Admin: 04/25/21 07:49 Dose: 300 mg Documented by: Hydromorphone HCl (Hydromorphone 1 Mg/Ml 1 Ml Syringe) 0.5 mg IVP Q3HR PRN PRN Reason: Pain Scale 4 to 6 Hydromorphone HCl (Hydromorphone 1 Mg/Ml 1 Ml Syringe) 1 mg IVP Q3HR PRN PRN Reason: Pain Scale 7 to 10 Last Admin: 04/25/21 05:57 Dose: 1 mg Documented by: Hydromorphone HCl (Hydromorphone 0.2 Mg/1 Ml Syringe) 0.2 mg IVP Q3HR PRN PRN Reason: Pain Scale 1 to 3 Hydroxyzine Pamoate (Hydroxyzine Pamoate 25 Mg Cap) 25 mg PO Q4HR PRN PRN Reason: Nausea, Anxiety, Pain Control Lactated Ringer's (Lactated Ringers) 1,000 mls @ 20 mls/hr IV .Q24H [facility] Last Admin: 04/25/21 09:27 Dose: Not Given Documented by: Lidocaine HCl (Lidocaine 1% (10mg/Ml) For Iv Start) 0.1 ml INTRADERMA PER PROTOCOL PRN PRN Reason: IV Start Loratadine (Loratadine 10 Mg Tab) 10 mg PO DAILY [facility] Last Admin: 04/25/21 07:49 Dose: 10 mg Documented by: Losartan Potassium (Losartan 50 Mg Tab) 100 mg PO QAM [facility] Last Admin: 04/25/21 09:26 Dose: Not Given Documented by: Magnesium Hydroxide (Magnesium Hydroxide 2,400 Mg/10 Ml Cup) 2,400 mg PO DAILY PRN PRN Reason: Constipation Metoprolol Tartrate (Metoprolol Tartrate 25 Mg Tab) 25 mg PO QAM [facility] Last Admin: 04/25/21 07:49 Dose: 25 mg Documented by: Montelukast Sodium (Montelukast 10 Mg Tab) 10 mg PO DAILY [facility] Last Admin: 04/25/21 07:49 Dose: 10 mg Documented by: Multivitamins (Multivitamins, Thera 1 Each Tab) 1 each PO DAILY [facility] Last Admin: 04/25/21 07:49 Dose: 1 each Documented by: Naloxone HCl (Naloxone 0.4 Mg/Ml 1 Ml Vial) 0.2 mg IV Q2M PRN PRN Reason: Opioid Reversal Ondansetron HCl (Ondansetron 4 Mg/2 Ml Vial) 4 mg IVP Q8HR PRN PRN Reason: Nausea And Vomiting Last Admin: 04/24/21 19:52 Dose: 4 mg Documented by: Pantoprazole Sodium (Pantoprazole 40 Mg Tablet) 40 mg PO AC-BRKFST [facility] Last Admin: 04/25/21 07:49 Dose: 40 mg Documented by: Promethazine HCl (Promethazine 25 Mg Tab) 25 mg PO Q6HR PRN PRN Reason: Nausea Trazodone HCl (Trazodone Hcl 50 Mg Tab) 50 mg PO HS [facility] Last Admin: 04/25/21 00:00 Dose: 50 mg Documented by: PHYSICAL EXAMINATION: GENERAL: The patient is alert and oriented x4, Well developed, well nourished. Morbidly obese HEENT: Pupils are round and equally reacting to light. EOMI. does have scleral icterus. No conjunctival pallor. Normocephalic, atraumatic. No pharyngeal erythema. No thyromegaly. CARDIOVASCULAR: S1 and S2 present PULMONARY: Clear to auscultation with no wheezing or rhonchi noted ABDOMEN: soft. Nontender on exam. obese. non-distended, normoactive bowel sounds. No palpable organomegaly. MUSCULOSKELETAL: No joint swelling or deformity. EXTREMITIES: No cyanosis, clubbing, or pedal edema. Right hip surgical dressing is intact NEUROLOGICAL: Gross neurological examination did not reveal any focal deficits. Diffuse weakness SKIN: No rashes. 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 Outpatient IV antibiotic therapy with a PICC line that was removed as the PICC line was uncapped for an unknown period of time History of asthma without acute exacerbation History of hypertension, will hold on hydrochlorothiazide and losartan as blood pressures are soft and will monitor closely and other appropriate home medications have been resumed Gastroesophageal reflux disease Morbid obesity with a BMI of 45.6 Sleep apnea uses CPAP machine at home Osteoarthritis history of depression GI prophylaxis DVT prophylaxis Full code Plan: Recommend to continue with current medications and management per orthopedic services. Patient does take hydrochlorothiazide and losartan which are being held currently and will monitor closely her blood pressure readings. Patient currently has a wound VAC with Hemovac 2 of the left knee and currently being iced and elevated on pillows. PT/OT following and will work with the patient daily. Recommend repeat labs in the morning. Patient did have one small episode of flatus but denies anything further and has not had a bowel movement yet. Patient is urinating with no difficulties. Also discussed with the patient about increasing activity as tolerated with weightbearing restrictions as recommended by orthopedics. Infectious disease consulted and pending at this time and will discuss further about PICC line placement and IV antibiotic therapy in the outpatient setting. Will continue to follow along with orthopedics during hospitalization. Thank you for this consultation. The impression and plan of care has been dictated by Aleah Colvin, nurse practitioner as directed. Dr. Efrain MD I have performed a history and examination and MDM of this patient, discussed the same with the dictator, and agree with the dictator's assessment and plan as written ,documented as a scribe. Based on total visit time, I have performed more than 50% of the visit. Any additional findings or plans will be noted. Past Medical History Past Medical History: Asthma, GERD/Reflux, Hearing Disorder / Deafness, Hypertension, Osteoarthritis (OA), Sleep Apnea/CPAP/BIPAP Additional Past Medical History / Comment(s): Poor hearing right ear. No CPAP use currently, current A/B PICC line for infection left knee & loose "part" in knee from recent surg. 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 Left knee surgery. Dental work. Umbilical hernia repair, staged revision total left knee 04-03-21, PICC line Past Anesthesia/Blood Transfusion Reactions: Motion Sickness, Postoperative Nausea & Vomiting (PONV) Additional Past Anesthesia/Blood Transfusion Reaction / Comm: severe PONV w/last knee surg. beginning of this month, recent dizziness & vertigo since last surgery Past Psychological History: Anxiety Smoking Status: Never smoker Past Alcohol Use History: None Reported Past Drug Use History: None Reported - Past Family History Mother Family Medical History: No Reported History Medications and Allergies Home Medications Medication Instructions Recorded Confirmed Type Cetirizine HCl [Zyrtec] 10 mg PO DAILY 01/08/21 04/24/21 History Desvenlafaxine Succinate [Pristiq] 100 mg PO QAM 01/08/21 04/24/21 History Losartan Potassium 100 mg PO QAM 01/08/21 04/24/21 History Montelukast Sodium [Singulair] 10 mg PO DAILY 01/08/21 04/24/21 History Mupirocin [Mupirocin 2% with 1 applic NASAL TID 01/08/21 04/24/21 History applicator] amLODIPine BESYLATE 5 mg PO QAM 01/08/21 04/24/21 History Acetaminophen Tab [Tylenol] 650 mg PO Q6HR PRN tab 01/17/21 04/24/21 Rx Multivitamins, Thera [Multivitamin 1 tab PO DAILY 04/01/21 04/24/21 History (formulary)] [place]-3/Dha/Epa/Fish Oil [Fish Oil 1 each PO DAILY 04/01/21 04/24/21 History 500 mg Softgel] Aspirin 81 mg PO BID 30 Days #60 tab 04/09/21 04/24/21 Rx Docusate [Colace] 100 mg PO BID #60 capsule 04/09/21 04/24/21 Rx Gabapentin 300 mg PO TID #12 cap 04/09/21 04/24/21 Rx HYDROcodone/APAP 10-325MG [[place] 1 tab PO Q6HR PRN 7 Days #28 tab 04/09/21 04/24/21 Rx 10-325] Cefepime [Maxipime] 2 gm IVPB Q8H 42 Days #126 each 04/10/21 04/24/21 Rx Metoprolol Tartrate [Lopressor] 25 mg PO QAM 04/23/21 04/24/21 History Micatin 2% Cream TOPICAL DIRECTED PRN 04/23/21 History Omeprazole [PriLOSEC] 20 mg PO AC-BRKFST 04/23/21 04/24/21 History Promethazine [Phenergan] 25 mg PO Q6HR PRN 04/23/21 04/24/21 History S.boulardii/B.coagulans/Fos 2 cap PO BID 04/23/21 04/24/21 History [Diff-Stat 471 mg Capsule] hydroCHLOROthiazide [Hydrodiuril] 25 mg PO DAILY 04/23/21 04/24/21 History traZODone HCL 50 mg PO HS 04/23/21 04/24/21 History Allergies Allergy/AdvReac Type Severity Reaction Status Date / Time bee venom protein (honey bee) Allergy Anaphylaxis Verified 04/24/21 14:23 Penicillins Allergy Rash/Hives Verified 04/24/21 14:23 acetaminophen [From Percocet] AdvReac Nausea & Verified 04/24/21 14:23 Vomiting hydroxyzine [From Vistaril] AdvReac Nightmares Verified 04/25/21 04:06 oxycodone [From Percocet] AdvReac Nausea & Verified 04/24/21 14:23 Vomiting Physical Exam Vitals: Vital Signs Temp Pulse Pulse Pulse Resp BP Pulse Ox 04/25/21 07:04 97.5 F L 92 17 107/70 92 L 04/25/21 02:00 97.9 F 96 18 97/58 99 04/24/21 21:13 98 04/24/21 21:00 108 H 107/68 96 04/24/21 20:40 122 H 114/70 95 04/24/21 20:30 120 H 154/91 93 L 04/24/21 20:15 106 H 138/93 100 04/24/21 20:00 111 H 142/82 100 04/24/21 19:40 102 H 133/89 100 04/24/21 19:25 91 128/87 96 04/24/21 19:10 87 144/89 96 04/24/21 18:54 97.5 F L 99 142/91 92 L 04/24/21 18:39 90 18 108/77 93 L 04/24/21 18:24 93 18 132/77 92 L 04/24/21 18:09 90 16 124/71 98 04/24/21 17:54 79 16 107/63 99 04/24/21 17:39 97.9 F 84 14 129/73 100 04/24/21 14:19 97.5 F L 72 16 144/86 Intake and Output 04/24/21 04/25/21 04/25/21 22:59 06:59 14:59 Intake Total 1800 Output Total 300 430 Balance 1500 -430 Intake: IV 1800 Output: Drainage 130 Left Knee (A) 20 Left Knee (B) 110 Urine 300 Estimated Blood Loss 300 Other: # Voids 1 Weight 140 kg Results CBC & Chem 7: 04/25/21 06:08 Labs: Abnormal Lab Results - Last 24 Hours (Table) 04/24/21 04/25/21 Range/Units 14:44 06:50 RBC 3.55 L (3.80-5.40) m/uL Hgb 9.4 L (11.4-16.0) gm/dL Hct 29.4 L (34.0-46.0) % Eosinophils # 1.0 H (0-0.7) k/uL POC Glucose (mg/dL) 136 H (75-99) mg/dL Microbiology - Last 24 Hours (Table) 04/24/21 17:30 Gram Stain - Preliminary Knee - Left Wound Culture - Preliminary 04/24/21 17:30 Gram Stain - Preliminary Knee - Left Wound Culture - Preliminary
--- NOTE | 2021-04-25 16:00 | P.PN ---
Subjective Progress Note Date: 04/25/21 This patient is a 50- year old female who is status-post left knee revision arthroplasty for polyethylene liner exchange on 04/24/[address] Montesinos. Today is post-operative day #1. Patient is seen and examined bedside. Patient states her pain was uncontrolled all evening although now it is well-controlled at this time. She has not yet been up with physical therapy. She overall feels well and has no new complaints. Vital signs stable. Objective - Vital Signs Vital signs: Vital Signs Temp 98 F 04/25/21 13:42 Pulse 80 04/25/21 13:42 Resp 18 04/25/21 13:42 BP 111/64 04/25/21 13:42 Pulse Ox 97 04/25/21 13:42 Intake & Output 04/24/21 04/25/21 04/25/21 18:59 06:59 18:59 Intake Total 1800 450 Output Total 300 430 Balance 1500 -430 450 Weight 140 kg 140 kg Intake: IV 1800 Oral 450 Output: Drainage 130 Left Knee (A) 20 Left Knee (B) 110 Urine 300 Estimated Blood Loss 300 Other: Voiding Method Bedside Commode # Voids 1 - Exam On examination, patient is sitting up in bed in no apparent distress. She is alert and oriented 3. On inspection of her left knee, the there is a surgical dressing with an [place] wrap in place. 2 Hemovac drains and wound VAC are in place. The wound VAC has a good seal at this time. The visible portion of the foot and toes are warm and well perfused with brisk capillary refill distally. Motor and sensory function intact left lower extremity. Calf is soft and non- tender. - Labs CBC & Chem 7: 04/25/21 06:08 Labs: Abnormal Lab Results - Last 24 Hours (Table) 04/25/21 04/25/21 Range/Units 06:08 06:50 RBC 2.84 L (4.10-5.20) X 10*6/uL Hgb 7.0 L (12.0-15.0) g/dL Hct 24.0 L (37.2-46.3) % MCH 24.6 L (27.0-32.0) pg MCHC 29.2 L (32.0-37.0) g/dL RDW 14.7 H (11.5-14.5) % Immature Gran # 0.05 H (0.00-0.04) X 10*3/uL POC Glucose (mg/dL) 136 H (75-99) mg/dL Microbiology - Last 24 Hours (Table) 04/24/21 17:30 Gram Stain - Preliminary Knee - Left Wound Culture - Preliminary 04/24/21 17:30 Gram Stain - Preliminary Knee - Left Wound Culture - Preliminary Assessment and Plan Assessment: Status-post left knee revision arthroplasty for polyethylene liner exchange on 04/24/21. Post-operative day #1. Plan: - Weight-bear as tolerated on the operative leg with a walker. - Physical therapy for gait and balance training. - Keep wound VAC in place at this time. - Will plan to pull drains tomorrow. - IV antibiotics per Dr. Brown. - Pain management as needed. - Aspirin 81mg BID for DVT prophylaxis. - Internal medicine consulted of sidra-operative medical management. - Case management consulted for discharge planning.
[2021-04-25] MEDS: traZODone HCL 50 MG TAB PO SCH ×2 (19:50)
[2021-04-25] MEDS ORDERED: traZODone HCL 50 MG TAB PO SCH (21:00)
--- NOTE | 2021-04-25 23:00 | P.CONS ---
History of Present Illness - Reason for Consult Consult date: 04/25/21 antibiotic recomendatio Requesting physician: Nicolasa Figueroa - Chief Complaint left knee pain x weeks - History of Present Illness History of Present Illness : Patient is 50-year-old female with a past medical history significant for left knee septic arthritis in this patient recently did have a stage II procedure however culture during the admission was positive for oxacillin sensitive Staph epidermidis and pantoea agglomerans patient did get a PICC line and was advised a 6-week course of IV cefepime 2 g every 8 hourly with the patient is currently receiving at the local intermediate patient has been complaining of pain to the left knee area she was noticed to have dislocation of her prosthesis patient was taken back to the OR and is status post left knee revision arthroplasty with polyethylene liner exchange completed on 04/24/2021 local culture has been obtained patient has received cefazolin perioperatively infectious disease was consulted for further management of antibiotic therapy patient on admission to the hospital has been afebrile and no fever has been recorded subsequently patient did have a normal white count Covid PCR was negative, patient pain to the left knee is currently controlled more of a dull aching at times sharp 5-6 of 10 orientation patient denies having any chest pain shortness of breath or cough no abdominal pain no diarrhea Review of system: CONSTITUTIONAL: Positive for weakness denies high-grade fever. EYES: No complaint. ENT: No complaint. RESPIRATORY: No complaint. CARDIOVASCULAR: No complaint. GENITOURINARY: No complaint. GASTROINTESTINAL: No complaint. MUSCULOSKELETAL: As per history of present illness. INTEGUMENTARY : No complaint. PSYCHOLOGIC: No complaint. ENDOCRINE: No complaint. NEUROLOGIC: No complaint. Past medical history : Reviewed, documented below Past surgical history : Reviewed, documented below Social history: Reviewed, documented below Medications: Reviewed, as documented below EXAMINATION: Vital sigans= Reviewed and documented below GENERAL DESCRIPTION: Middle-aged male lying in bed, no distress. No tachypnea or accessory muscle of respiration use. HEENT: Shows Pallor , no scleral icterus. Oral mucous membrane is dry. NECK: Trachea central, no thyromegaly. LUNGS: Unlabored breathing. Clear to auscultation anteriorly. No wheeze or crackle. HEART: S1, S2, regular rate and rhythm. ABDOMEN: Soft, no tenderness , guarding or rigidity EXTREMITIES: Left knee is currently dressed with the OR dressing/wound VAC SKIN: No rash, no masses palpable. NEUROLOGICAL: The patient is awake, alert, oriented x3, mood and affect normal. LABS AND RADIOLOGY: Reviewed results see below Assessment : Patient with left knee septic arthritis in this patient admitted to hospital for revision arthroplasty and polyethylene exchange along with deep cultures patient currently no fever or elevated white count with the last culture positive for oxacillin sensitive Staph epidermidis and pantoea agglomerans Plan: 1-cefepime 2 g every 8 hour while waiting for the repeat cultures to be finalized 2-we will check a CRP and sed rate We will follow on clinical condition and cultures to further adjust medication if needed Thank you for this consultation we will follow the patient along with you Past Medical History Past Medical History: Asthma, GERD/Reflux, Hearing Disorder / Deafness, Hypertension, Osteoarthritis (OA), Sleep Apnea/CPAP/BIPAP Additional Past Medical History / Comment(s): Poor hearing right ear. No CPAP use currently, current A/B PICC line for infection left knee & loose "part" in knee from recent surg. 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 Left knee surgery. Dental work. Umbilical hernia repair, staged revision total left knee 04-03-21, PICC line Past Anesthesia/Blood Transfusion Reactions: Motion Sickness, Postoperative Nausea & Vomiting (PONV) Additional Past Anesthesia/Blood Transfusion Reaction / Comm: severe PONV w/last knee surg. beginning of this month, recent dizziness & vertigo since last surgery Past Psychological History: Anxiety Smoking Status: Never smoker Past Alcohol Use History: None Reported Past Drug Use History: None Reported - Past Family History Mother Family Medical History: No Reported History Medications and Allergies Home Medications Medication Instructions Recorded Confirmed Type Cetirizine HCl [Zyrtec] 10 mg PO DAILY 01/08/21 04/24/21 History Desvenlafaxine Succinate [Pristiq] 100 mg PO QAM 01/08/21 04/24/21 History Losartan Potassium 100 mg PO QAM 01/08/21 04/24/21 History Montelukast Sodium [Singulair] 10 mg PO DAILY 01/08/21 04/24/21 History Mupirocin [Mupirocin 2% with 1 applic NASAL TID 01/08/21 04/24/21 History applicator] amLODIPine BESYLATE 5 mg PO QAM 01/08/21 04/24/21 History Acetaminophen Tab [Tylenol] 650 mg PO Q6HR PRN tab 01/17/21 04/24/21 Rx Multivitamins, Thera [Multivitamin 1 tab PO DAILY 04/01/21 04/24/21 History (formulary)] [place]-3/Dha/Epa/Fish Oil [Fish Oil 1 each PO DAILY 04/01/21 04/24/21 History 500 mg Softgel] Aspirin 81 mg PO BID 30 Days #60 tab 04/09/21 04/24/21 Rx Docusate [Colace] 100 mg PO BID #60 capsule 04/09/21 04/24/21 Rx Gabapentin 300 mg PO TID #12 cap 04/09/21 04/24/21 Rx HYDROcodone/APAP 10-325MG [[place] 1 tab PO Q6HR PRN 7 Days #28 tab 04/09/21 04/24/21 Rx 10-325] Cefepime [Maxipime] 2 gm IVPB Q8H 42 Days #126 each 04/10/21 04/24/21 Rx Metoprolol Tartrate [Lopressor] 25 mg PO QAM 04/23/21 04/24/21 History Micatin 2% Cream TOPICAL DIRECTED PRN 04/23/21 History Omeprazole [PriLOSEC] 20 mg PO AC-BRKFST 04/23/21 04/24/21 History Promethazine [Phenergan] 25 mg PO Q6HR PRN 04/23/21 04/24/21 History S.boulardii/B.coagulans/Fos 2 cap PO BID 04/23/21 04/24/21 History [Diff-Stat 471 mg Capsule] hydroCHLOROthiazide [Hydrodiuril] 25 mg PO DAILY 04/23/21 04/24/21 History traZODone HCL 50 mg PO HS 04/23/21 04/24/21 History Allergies Allergy/AdvReac Type Severity Reaction Status Date / Time bee venom protein (honey bee) Allergy Anaphylaxis Verified 04/24/21 14:23 Penicillins Allergy Rash/Hives Verified 04/24/21 14:23 acetaminophen [From Percocet] AdvReac Nausea & Verified 04/24/21 14:23 Vomiting hydroxyzine [From Vistaril] AdvReac Nightmares Verified 04/25/21 04:06 oxycodone [From Percocet] AdvReac Nausea & Verified 04/24/21 14:23 Vomiting Physical Exam Vitals: Vital Signs Temp Pulse Pulse Pulse Resp BP Pulse Ox 04/25/21 07:04 97.5 F L 92 17 107/70 92 L 04/25/21 02:00 97.9 F 96 18 97/58 99 04/24/21 21:13 98 04/24/21 21:00 108 H 107/68 96 04/24/21 20:40 122 H 114/70 95 04/24/21 20:30 120 H 154/91 93 L 04/24/21 20:15 106 H 138/93 100 04/24/21 20:00 111 H 142/82 100 04/24/21 19:40 102 H 133/89 100 04/24/21 19:25 91 128/87 96 04/24/21 19:10 87 144/89 96 04/24/21 18:54 97.5 F L 99 142/91 92 L 04/24/21 18:39 90 18 108/77 93 L 04/24/21 18:24 93 18 132/77 92 L 04/24/21 18:09 90 16 124/71 98 04/24/21 17:54 79 16 107/63 99 04/24/21 17:39 97.9 F 84 14 129/73 100 04/24/21 14:19 97.5 F L 72 16 144/86 Intake and Output 04/24/21 04/25/21 04/25/21 22:59 06:59 14:59 Intake Total 1800 200 Output Total 300 430 Balance 1500 -430 200 Intake: IV 1800 Oral 200 Output: Drainage 130 Left Knee (A) 20 Left Knee (B) 110 Urine 300 Estimated Blood Loss 300 Other: # Voids 1 Weight 140 kg Results CBC & Chem 7: 04/25/21 06:08 Labs: Abnormal Lab Results - Last 24 Hours (Table) 04/24/21 04/25/21 04/25/21 Range/Units 14:44 06:08 06:50 RBC 3.55 L 2.84 L (3.80-5.40) m/uL Hgb 9.4 L 7.0 L (11.4-16.0) gm/dL Hct 29.4 L 24.0 L (34.0-46.0) % MCH 24.6 L (27.0-32.0) pg MCHC 29.2 L (32.0-37.0) g/dL RDW 14.7 H (11.5-14.5) % Immature Gran # 0.05 H (0.00-0.04) X 10*3/uL Eosinophils # 1.0 H (0-0.7) k/uL POC Glucose (mg/dL) 136 H (75-99) mg/dL Microbiology - Last 24 Hours (Table) 04/24/21 17:30 Gram Stain - Preliminary Knee - Left Wound Culture - Preliminary 04/24/21 17:30 Gram Stain - Preliminary Knee - Left Wound Culture - Preliminary
[2021-04-25] MEDS: CEFEPIME 2 GM in SODIUM CHLORIDE 0.9% 100 ML IVPB SCH (23:44)
[2021-04-26] MEDS: CEFEPIME 2 GM in SODIUM CHLORIDE 0.9% 100 ML IVPB SCH ×3 (05:51→22:58)
[2021-04-26] MEDS: HYDROcodone/APAP 10-325MG 1 EACH TAB PO PRN ×4 (05:52→19:20)
[2021-04-26] MEDS: ASPIRIN 81 MG PO SCH ×2 (08:24→20:45)
[2021-04-26] MEDS: PANTOPRAZOLE 40 MG TABLET PO SCH (08:24)
[2021-04-26] MEDS: DESVENLAFAXINE SUCCINATE 50 MG TAB.ER.24H PO SCH (08:24)
[2021-04-26] MEDS: DOCUSATE 100 MG CAP PO SCH ×2 (08:24→20:45)
[2021-04-26] MEDS: MULTIVITAMINS, THERA 1 EACH TAB PO SCH (08:25)
[2021-04-26] MEDS: MONTELUKAST 10 MG TAB PO SCH (08:25)
[2021-04-26] MEDS: GABAPENTIN 300 MG CAP PO SCH ×3 (08:25→20:45)
[2021-04-26] MEDS: LORATADINE 10 MG TAB PO SCH (08:25)
[2021-04-26] MEDS: LOSARTAN 50 MG TAB PO SCH (08:25)
[2021-04-26] MEDS: METOPROLOL TARTRATE 25 MG TAB PO SCH (08:25)
[2021-04-26 10:08] LABS: African American GFR (CKD) 99.6 (60.0-200.0); Anion Gap 9.3 mmol/L (10.00-18.00); BUN/Creat Ratio 15.25 Ratio (12.00-20.00); Blood Urea Nitrogen 12.2 mg/dL (9.0-27.0); C Reactive Protein 5.9 mg/dL (0.00-0.80); Calcium 8.5 mg/dL (8.7-10.3); Carbon Dioxide 28.7 mmol/L (20.0-27.5); Potassium 3.7 mmol/L (3.5-5.5)
[2021-04-26] MEDS: LACTATED RINGERS 1,000 ML IV SCH (10:10)
[2021-04-26] MEDS: CYCLOBENZAPRINE 10 MG TAB PO PRN ×2 (10:23→19:23)
--- NOTE | 2021-04-26 11:09 | P.PN ---
Subjective Progress Note Date: 04/26/21 This patient is a 50- year old female who is status-post left knee revision arthroplasty for polyethylene liner exchange on 04/24/[address] Montesinos. Today is post-operative day #2. Patient is seen and examined bedside. Patient states she is doing very well this morning and is having minimal pain in the left knee at this time. She was up with physical therapy yesterday. She has no complaint or concerns. She denies chest pain, shortness of breath, nausea, vomiting. Per nursing, both Hemovac drains have only put out about 40 ccs each through the machinist 2nd shift. Objective - Vital Signs Vital signs: Vital Signs Temp 97.6 F 04/26/21 07:06 Pulse 77 04/26/21 07:06 Resp 18 04/26/21 07:06 BP 124/69 04/26/21 07:06 Pulse Ox 96 04/26/21 07:06 Intake & Output 04/25/21 04/26/21 04/26/21 18:59 06:59 18:59 Intake Total 750 Output Total 40 160 Balance 710 -160 Intake: Oral 750 Output: Drainage 40 160 Left Knee (A) 20 70 Left Knee (B) 20 90 Other: Voiding Method Bedside Commode Toilet # Voids 2 4 - Exam On examination, patient is sitting up in bed in no apparent distress. She is alert and oriented 3. On inspection of her left knee, the there is a surgical dressing with an [place] wrap in place. 2 Hemovac drains and wound VAC are in place. ZAIRE wrap is removed, hemovac drains pulled. The wound VAC has a good seal at this time. The visible portion of the foot and toes are warm and well perfused with brisk capillary refill distally. Motor and sensory function intact left lower extremity. Calf is soft and non-tender. - Labs CBC & Chem 7: 04/25/21 06:08 04/26/21 06:13 Labs: Abnormal Lab Results - Last 24 Hours (Table) 04/26/21 Range/Units 06:13 Carbon Dioxide 28.7 H (20.0-27.5) mmol/L Anion Gap 9.30 L (10.00-18.00) mmol/L Calcium 8.5 L (8.7-10.3) mg/dL C-Reactive Protein 5.90 H (0.00-0.80) mg/dL Microbiology - Last 24 Hours (Table) 04/24/21 17:30 Gram Stain - Preliminary Knee - Left Wound Culture - Preliminary 04/24/21 17:30 Gram Stain - Preliminary Knee - Left Wound Culture - Preliminary Assessment and Plan Assessment: Status-post left knee revision arthroplasty for polyethylene liner exchange on 04/24/21. Post-operative day #2. Plan: - Weight-bear as tolerated on the operative leg with a walker. - Physical therapy for gait and balance training. - Keep wound VAC in place at this time. - Hemovac drains removed today and dressing applied. - IV antibiotics per Dr. Brown. Intra-operative cultures pending. - Pain management as needed. - Aspirin 81mg BID for DVT prophylaxis. - Internal medicine for sidra-operative medical management. - Case management consulted for discharge planning.
[2021-04-26 13:05] LABS: HCT 24.1 % (34.0-46.0); Hypochromasia Marked; MCH 26.6 pg (25.0-35.0); MCHC 30.9 g/dL (31.0-37.0); MCV 86.1 fL (80.0-100.0); Mean Platelet Volume 8.3; Platelet Count 247 k/uL (150-450); RDW 15.3 % (11.5-15.5); WBC 5.3 k/uL (3.8-10.6)
[2021-04-26 13:16] LABS: HGB 7.4 gm/dL (11.4-16.0)
--- NOTE | 2021-04-26 19:31 | P.PN ---
Subjective Progress Note Date: 04/26/21 - Reason for Consult Consult date: 04/25/21 Medical management, hypertension history - Chief Complaint Left knee revision - History of Present Illness This is a pleasant 50-year-old female who was admitted under orthopedic services and most recently discharged to [facility] for continued IV antibiotics, wound care, ph ysical therapy and is admitted under Dr. Montesinos and patient underwent revision of left knee arthroplasty and polyethylene liner exchange with extensive irrigation of the left knee and is postop day #1. Patient does have a past medical history of hypertension we are consulted for medical management. Patient is on hydrochlorothiazide, Norvasc, losartan, and metoprolol and will hold hydrochlorothiazide and losartan for now to monitor closely for postop hypotension. Blood pressures have been soft and will monitor closely and resume appropriate home medications. Patient has 2 Hemovacs and a wound VAC that has been applied to the left knee and there is some extensive left knee swelling noted and patient is using pain medication and ice to alleviate along with elevating. Patient was able to get up and walk with physical therapy today. Patient denies any chest pain, shortness of breath, or palpitations. Patient is afebrile. Patient denies any nausea or vomiting and tolerating diet. 04/26/2021 Patient is seen in follow-up today with no acute overnight issues. Patient is up and walking and has been walking to the bathroom on her own and does have a walker at the bedside. Patient has continued wound VAC and Hemovacs have been discontinued. Patient continues with left knee pain with sharp stabbing sensations at times and pain management per primary service. Patient continues on IV antibiotics and awaiting cultures to finalize to determine discharge antibiotics with ID following closely. Patient is currently on IV cefepime. Patient will need a PICC line prior to discharge. Case management following as well and arranging IV abx and homecare for discharge. Review of systems: Constitutional: No reports of fatigue, fever, or chills Cardiovascular: No reports of chest pain or palpitations Respiratory: No reports of shortness of breath or cough GI: No reports of nausea, vomiting, or diarrhea : No reports of dysuria or retention Neurovascular: No reports of weakness or numbness, reports left knee sharp stabbing sensations at times. All medications have been reviewed Active Medications Acetaminophen (Acetaminophen Tab 325 Mg Tab) 650 mg PO Q6HR PRN PRN Reason: Fever and/ or Pain Hydrocodone Bitart/Acetaminophen (Hydrocodone/Apap 10-325mg 1 Each Tab) 1 each PO Q4HR PRN PRN Reason: Pain Last Admin: 04/26/21 14:52 Dose: 1 each Documented by: Alprazolam (Alprazolam 0.25 Mg Tab) 0.25 mg PO TID PRN PRN Reason: Anxiety Last Admin: 04/25/21 09:04 Dose: 0.25 mg Documented by: Aspirin (Aspirin 81 Mg) 81 mg PO BID [facility] Last Admin: 04/26/21 08:24 Dose: 81 mg Documented by: Calcium Carbonate/Glycine (Calcium Carbonate 500 Mg Chewable) 500 mg PO QID PRN PRN Reason: Heartburn Last Admin: 04/24/21 22:22 Dose: 500 mg Documented by: Cyclobenzaprine HCl (Cyclobenzaprine 10 Mg Tab) 10 mg PO Q8HR PRN PRN Reason: Muscle Spasm Last Admin: 04/26/21 10:23 Dose: 10 mg Documented by: Desvenlafaxine Succinate (Desvenlafaxine Succinate 50 Mg Tab.Er.24h) 100 mg PO QAM [facility] Last Admin: 04/26/21 08:24 Dose: 100 mg Documented by: Docusate Sodium (Docusate 100 Mg Cap) 100 mg PO BID [facility] Last Admin: 04/26/21 08:24 Dose: 100 mg Documented by: Gabapentin (Gabapentin 300 Mg Cap) 300 mg PO TID [facility] Last Admin: 04/26/21 08:25 Dose: 300 mg Documented by: Hydromorphone HCl (Hydromorphone 1 Mg/Ml 1 Ml Syringe) 0.5 mg IVP Q3HR PRN PRN Reason: Pain Scale 4 to 6 Last Admin: 04/26/21 07:39 Dose: 0.5 mg Documented by: Hydromorphone HCl (Hydromorphone 1 Mg/Ml 1 Ml Syringe) 1 mg IVP Q3HR PRN PRN Reason: Pain Scale 7 to 10 Last Admin: 04/25/21 23:28 Dose: 1 mg Documented by: Hydromorphone HCl (Hydromorphone 0.2 Mg/1 Ml Syringe) 0.2 mg IVP Q3HR PRN PRN Reason: Pain Scale 1 to 3 Hydroxyzine Pamoate (Hydroxyzine Pamoate 25 Mg Cap) 25 mg PO Q4HR PRN PRN Reason: Nausea, Anxiety, Pain Control Last Admin: 04/25/21 19:47 Dose: 25 mg Documented by: Lactated Ringer's (Lactated Ringers) 1,000 mls @ 20 mls/hr IV .Q24H [facility] Last Admin: 04/26/21 10:10 Dose: Not Given Documented by: Cefepime HCl 2 gm/ Sodium (Chloride) 100 mls @ 25 mls/hr IVPB Q8H [facility]; Protocol Last Admin: 04/26/21 14:52 Dose: 25 mls/hr Documented by: Lidocaine HCl (Lidocaine 1% (10mg/Ml) For Iv Start) 0.1 ml INTRADERMA PER PROTOCOL PRN PRN Reason: IV Start Loratadine (Loratadine 10 Mg Tab) 10 mg PO DAILY [facility] Last Admin: 04/26/21 08:25 Dose: 10 mg Documented by: Losartan Potassium (Losartan 50 Mg Tab) 100 mg PO QAM [facility] Last Admin: 04/26/21 08:25 Dose: 100 mg Documented by: Magnesium Hydroxide (Magnesium Hydroxide 2,400 Mg/10 Ml Cup) 2,400 mg PO DAILY PRN PRN Reason: Constipation Metoprolol Tartrate (Metoprolol Tartrate 25 Mg Tab) 25 mg PO QAM [facility] Last Admin: 04/26/21 08:25 Dose: 25 mg Documented by: Montelukast Sodium (Montelukast 10 Mg Tab) 10 mg PO DAILY [facility] Last Admin: 04/26/21 08:25 Dose: 10 mg Documented by: Multivitamins (Multivitamins, Thera 1 Each Tab) 1 each PO DAILY [facility] Last Admin: 04/26/21 08:25 Dose: 1 each Documented by: Naloxone HCl (Naloxone 0.4 Mg/Ml 1 Ml Vial) 0.2 mg IV Q2M PRN PRN Reason: Opioid Reversal Ondansetron HCl (Ondansetron 4 Mg/2 Ml Vial) 4 mg IVP Q8HR PRN PRN Reason: Nausea And Vomiting Last Admin: 04/24/21 19:52 Dose: 4 mg Documented by: Pantoprazole Sodium (Pantoprazole 40 Mg Tablet) 40 mg PO AC-BRKFST [facility] Last Admin: 04/26/21 08:24 Dose: 40 mg Documented by: Promethazine HCl (Promethazine 25 Mg Tab) 25 mg PO Q6HR PRN PRN Reason: Nausea Trazodone HCl (Trazodone Hcl 50 Mg Tab) 50 mg PO HS [facility] Last Admin: 04/25/21 19:50 Dose: 50 mg Documented by: PHYSICAL EXAMINATION: GENERAL: The patient is alert and oriented x4, Well developed, well nourished. Morbidly obese HEENT: Pupils are round and equally reacting to light. EOMI. does have scleral icterus. No conjunctival pallor. Normocephalic, atraumatic. No pharyngeal erythema. No thyromegaly. CARDIOVASCULAR: S1 and S2 present PULMONARY: Clear to auscultation with no wheezing or rhonchi noted ABDOMEN: soft. Nontender on exam. obese. non-distended, normoactive bowel sounds. No palpable organomegaly. MUSCULOSKELETAL: No joint swelling or deformity. EXTREMITIES: No cyanosis, clubbing, or pedal edema. NEUROLOGICAL: Gross neurological examination did not reveal any focal deficits. Diffuse weakness SKIN: No rashes. Left surgical knee with wound vac and tight seal noted. 2 hemovacs removed Assessment: Status post revision of the left knee arthroplasty with polyethylene liner exchange and extensive irrigation, postop day #2 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 Outpatient IV antibiotic therapy with a PICC line that was removed as the PICC line was uncapped for an unknown period of time History of asthma without acute exacerbation History of hypertension, will hold on hydrochlorothiazide as blood pressures are soft and will monitor closely and other appropriate home medications have been resumed Gastroesophageal reflux disease Morbid obesity with a BMI of 45.6 Sleep apnea uses CPAP machine at home Osteoarthritis history of depression GI prophylaxis DVT prophylaxis Full code Plan: Recommend to continue with current medications and management per orthopedic services. Patient appropriate home medications have been resumed. Patient currently has a wound VAC of the left knee. PT/OT following and will work with the patient daily. Patient reports to passing gas and having a bowel movement. Patient is urinating with no difficulties. Also discussed with the patient about increasing activity as tolerated with weightbearing restrictions as recommended by orthopedics. Infectious disease following and patient will need PICC line placement and IV antibiotic therapy in the outpatient setting. Case management following and arranging home care and IV abx on DC. Will continue to follow along with orthopedics during hospitalization. Thank you for this consultation. The impression and plan of care has been dictated by Aleah Colvin, nurse practitioner as directed. Dr. Efrain MD I have performed a history and examination and MDM of this patient, discussed the same with the dictator, and agree with the dictator's assessment and plan as written ,documented as a scribe. Based on total visit time, I have performed more than 50% of the visit. Any additional findings or plans will be noted. Objective - Vital Signs Vital signs: Vital Signs Temp 98.4 F 04/26/21 13:29 Pulse 78 04/26/21 13:29 Resp 18 04/26/21 13:29 BP 91/54 04/26/21 13:29 Pulse Ox 92 L 04/26/21 13:29 Intake & Output 04/25/21 04/26/21 04/26/21 18:59 06:59 18:59 Intake Total 750 Output Total 40 160 Balance 710 -160 Intake: Oral 750 Output: Drainage 40 160 Left Knee (A) 20 70 Left Knee (B) 20 90 Other: Voiding Method Bedside Commode Toilet # Voids 2 4 - Labs CBC & Chem 7: 04/26/21 06:13 04/26/21 06:13 Labs: Abnormal Lab Results - Last 24 Hours (Table) 04/26/21 04/26/21 Range/Units 06:13 06:13 RBC 2.80 L (3.80-5.40) m/uL Hgb 7.4 L D (11.4-16.0) gm/dL Hct 24.1 L (34.0-46.0) % MCHC 30.9 L (31.0-37.0) g/dL Carbon Dioxide 28.7 H (20.0-27.5) mmol/L Anion Gap 9.30 L (10.00-18.00) mmol/L Calcium 8.5 L (8.7-10.3) mg/dL C-Reactive Protein 5.90 H (0.00-0.80) mg/dL Microbiology - Last 24 Hours (Table) 04/24/21 17:30 Gram Stain - Preliminary Knee - Left Wound Culture - Preliminary 04/24/21 17:30 Gram Stain - Preliminary Knee - Left Wound Culture - Preliminary
[2021-04-26] MEDS: traZODone HCL 50 MG TAB PO SCH (20:45)
--- NOTE | 2021-04-26 22:49 | P.PN ---
Subjective Progress Note Date: 04/26/21 Principal diagnosis: Left knee septic arthritis Patient is a 50-year-old female with a possible history significant for left knee septic arthritis was recently did have a stage II procedure completed however wound culture were positive for oxacillin sensitive staph epi and gram-negative Pantoea, patient subsequently has been admitted to the hospital this admission with hardware failure status post left knee revision arthroplasty for polyethylene liner exchange on 04/24/21 On today's evaluation that is 04/26/2021, the patient denies having any fever or chills, the patient came to the left is currently controlled, no chest pain shortness of breath or cough no nausea no diarrhea Objective - Vital Signs Vital signs: Vital Signs Temp 98.4 F 04/26/21 13:29 Pulse 78 04/26/21 13:29 Resp 18 04/26/21 13:29 BP 91/54 04/26/21 13:29 Pulse Ox 92 L 04/26/21 13:29 Intake & Output 04/25/21 04/26/21 04/26/21 18:59 06:59 18:59 Intake Total 750 Output Total 40 160 Balance 710 -160 Intake: Oral 750 Output: Drainage 40 160 Left Knee (A) 20 70 Left Knee (B) 20 90 Other: Voiding Method Bedside Commode Toilet # Voids 2 4 - Exam GENERAL DESCRIPTION: A middle-age female lying in bed in no distress RESPIRATORY SYSTEM: Unlabored breathing , decreased breath sounds at bases HEART: S1 S2 regular rate and rhythm , ABDOMEN: Soft , no tenderness EXTREMITIES: Left knee is covered with OR dressing no drainage with dressing - Labs CBC & Chem 7: 04/26/21 06:13 04/26/21 06:13 Labs: Abnormal Lab Results - Last 24 Hours (Table) 04/26/21 04/26/21 Range/Units 06:13 06:13 RBC 2.80 L (3.80-5.40) m/uL Hgb 7.4 L D (11.4-16.0) gm/dL Hct 24.1 L (34.0-46.0) % MCHC 30.9 L (31.0-37.0) g/dL Carbon Dioxide 28.7 H (20.0-27.5) mmol/L Anion Gap 9.30 L (10.00-18.00) mmol/L Calcium 8.5 L (8.7-10.3) mg/dL C-Reactive Protein 5.90 H (0.00-0.80) mg/dL Microbiology - Last 24 Hours (Table) 04/24/21 17:30 Gram Stain - Preliminary Knee - Left Wound Culture - Preliminary 04/24/21 17:30 Gram Stain - Preliminary Knee - Left Wound Culture - Preliminary Assessment and Plan (1) Infection of total left knee replacement Current Visit: No Status: Acute Code(s): T84.54XA - INFECT/INFLM REACTION DUE TO INTERNAL LEFT KNEE PROSTH, INIT SNOMED Code(s): 511738010 Plan: Patient with left knee septic arthritis with a recent stage II procedure history positive culture with oxacillin staph epi and Pantoea admitted to the hospital this time with hardware failure and the patient is status post left knee revision arthroplasty for polyethylene liner exchange on 04/24/21 , OR cultures are currently pending patient continue with cefepime with a discharge antibiotics on the basis of final culture Time with Patient: Less than 30
[2021-04-26] MEDS: HYDROmorphone 1 MG/ML 1 ML SYRINGE IVP PRN (23:05)
[2021-04-27] MEDS: HYDROcodone/APAP 10-325MG 1 EACH TAB PO PRN ×4 (03:46→17:45)
[2021-04-27] MEDS: CEFEPIME 2 GM in SODIUM CHLORIDE 0.9% 100 ML IVPB SCH ×3 (06:11→23:41)
[2021-04-27] MEDS: LORATADINE 10 MG TAB PO SCH (08:55)
[2021-04-27] MEDS: PANTOPRAZOLE 40 MG TABLET PO SCH (08:55)
[2021-04-27] MEDS: MONTELUKAST 10 MG TAB PO SCH (08:55)
[2021-04-27] MEDS: ASPIRIN 81 MG PO SCH ×2 (08:55→21:11)
[2021-04-27] MEDS: MULTIVITAMINS, THERA 1 EACH TAB PO SCH (08:55)
[2021-04-27] MEDS: DESVENLAFAXINE SUCCINATE 50 MG TAB.ER.24H PO SCH (08:55)
[2021-04-27] MEDS: DOCUSATE 100 MG CAP PO SCH ×2 (08:55→21:31)
[2021-04-27] MEDS: GABAPENTIN 300 MG CAP PO SCH ×3 (08:55→21:10)
--- NOTE | 2021-04-27 09:31 | P.PN ---
Subjective Progress Note Date: 04/27/21 This patient is a 50- year old female who is status-post left knee revision arthroplasty for polyethylene liner exchange on 04/24/[address] Montesinos. Today is post-operative day #3. Patient is seen and examined bedside. She continues to ambulate with a walker with minimal assistance. Patient states her pain is well-controlled. She is tolerating her diet well. She has no complaints or concerns today. Objective - Vital Signs Vital signs: Vital Signs Temp 98.4 F 04/27/21 07:47 Pulse 87 04/27/21 09:00 Resp 16 04/27/21 07:47 BP 95/63 04/27/21 09:00 Pulse Ox 91 L 04/27/21 07:47 Intake & Output 04/26/21 04/27/21 04/27/21 18:59 06:59 18:59 Other: Voiding Method Toilet Toilet Toilet # Voids 3 1 - Exam On examination, patient is sitting up in bed in no apparent distress. She is alert and oriented 3. On inspection of her left knee, there is a wound VAC in place. The wound VAC has a good seal at this time. The visible portion of the foot and toes are warm and well perfused with brisk capillary refill distally. Motor and sensory function intact left lower extremity. Calf is soft and non- tender. - Labs CBC & Chem 7: 04/26/21 06:13 04/26/21 06:13 Labs: Abnormal Lab Results - Last 24 Hours (Table) 04/26/21 04/26/21 Range/Units 06:13 06:13 RBC 2.80 L (3.80-5.40) m/uL Hgb 7.4 L D (11.4-16.0) gm/dL Hct 24.1 L (34.0-46.0) % MCHC 30.9 L (31.0-37.0) g/dL Carbon Dioxide 28.7 H (20.0-27.5) mmol/L Anion Gap 9.30 L (10.00-18.00) mmol/L Calcium 8.5 L (8.7-10.3) mg/dL C-Reactive Protein 5.90 H (0.00-0.80) mg/dL Microbiology - Last 24 Hours (Table) 04/24/21 17:30 Gram Stain - Final Knee - Left Wound Culture - Final 04/24/21 17:30 Gram Stain - Final Knee - Left Wound Culture - Final Assessment and Plan Assessment: Status-post left knee revision arthroplasty for polyethylene liner exchange on 04/24/21. Post-operative day #3. Plan: - Weight-bear as tolerated on the operative leg with a walker. - Physical therapy for gait and balance training. - Keep wound VAC in place at this time. - IV antibiotics per Dr. Brown. Intra-operative cultures pending. - Pain management as needed. - Aspirin 81mg BID for DVT prophylaxis. - Internal medicine for sidra-operative medical management. - Case management consulted for discharge planning.
[2021-04-27 09:53] LABS: Basophils # (A) 0.06 X 10*3/uL (0.00-0.10); Basophils % (A) 1.2 %; Eosinophils # (A) 0.89 X 10*3/uL (0.04-0.35); Eosinophils % (A) 17.5 %; HCT 21.7 % (37.2-46.3); HGB 6.4 g/dL (12.0-15.0); Immature Grans, Automated 0.4 %; Lymphocytes # (A) 1.51 X 10*3/uL (0.90-5.00); Lymphocytes % (A) 29.7 %; MCH 25.2 pg (27.0-32.0); MCHC 29.5 g/dL (32.0-37.0); MCV 85.4 fL (80.0-97.0); Mean Platelet Volume 11.8 fL (9.5-12.2); Monocytes # (A) 0.55 X 10*3/uL (0.20-1.00); Monocytes % (A) 10.8 %; NRBC Per 100 WBC 0 /100 WBCS (0.0-0.0); Neutrophils # (A) 2.05 X 10*3/uL (1.80-7.70); Neutrophils % (A) 40.4 %; Platelet Count 238 X 10*3/uL (140-440); RBC 2.54 X 10*6/uL (4.10-5.20); RDW 15.1 % (11.5-14.5); WBC 5.08 X 10*3/uL (4.50-10.00)
[2021-04-27] MEDS: METOPROLOL TARTRATE 25 MG TAB PO SCH (11:11)
[2021-04-27] MEDS: CYCLOBENZAPRINE 10 MG TAB PO PRN ×2 (11:17→21:11)
--- NOTE | 2021-04-27 13:33 | P.PN ---
Subjective Progress Note Date: 04/27/21 This is a pleasant 50-year-old female who was admitted under orthopedic services and most recently discharged to [facility] for continued IV antibiotics, wound care, physical therapy and is admitted under Dr. Montesinos and patient underwent revision of left knee arthroplasty and polyethylene liner exchange with ex tensive irrigation of the left knee and is postop day #1. Patient does have a past medical history of hypertension we are consulted for medical management. Patient is on hydrochlorothiazide, Norvasc, losartan, and metoprolol and will hold hydrochlorothiazide and losartan for now to monitor closely for postop hypotension. Blood pressures have been soft and will monitor closely and resume appropriate home medications. Patient has 2 Hemovacs and a wound VAC that has been applied to the left knee and there is some extensive left knee swelling noted and patient is using pain medication and ice to alleviate along with elevating. Patient was able to get up and walk with physical therapy today. Patient denies any chest pain, shortness of breath, or palpitations. Patient is afebrile. Patient denies any nausea or vomiting and tolerating diet. 04/26/2021 Patient is seen in follow-up today with no acute overnight issues. Patient is up and walking and has been walking to the bathroom on her own and does have a walker at the bedside. Patient has continued wound VAC and Hemovacs have been discontinued. Patient continues with left knee pain with sharp stabbing sensations at times and pain management per primary service. Patient continues on IV antibiotics and awaiting cultures to finalize to determine discharge antibiotics with ID following closely. Patient is currently on IV cefepime. Patient will need a PICC line prior to discharge. Case management following as well and arranging IV abx and homecare for discharge. 04/27/2021 Patient today follow-up with no acute events overnight. Patient is up and ambulating to bathroom and using a walker at the bedside, however has been primarily bed rest. Wound VAC in place. Patient does complain of pain 9 out of 10 to the left knee continues with a sharp sensation however states that the pain management does help. Does complain of some fatigue today and states all she wants to do is nap. Hemoglobin today is 6.4 we will transfuse 1 unit of blood and repeat tomorrow. has had BM since surgery is passing gas. Cultures are pending, Continues on IV cefepime. Review of systems: Constitutional: Reports of fatigue, fever, or chills Cardiovascular: No reports of chest pain or palpitations Respiratory: No reports of shortness of breath or cough GI: No reports of nausea, vomiting, or diarrhea : No reports of dysuria or retention Neurovascular: No reports of weakness or numbness, reports left knee sharp stabbing sensations at times. All medications have been reviewed PHYSICAL EXAMINATION: GENERAL: The patient is alert and oriented x4, Well developed, well nourished. Morbidly obese HEENT: Pupils are round and equally reacting to light. EOMI. does have scleral icterus. No conjunctival pallor. Normocephalic, atraumatic. No pharyngeal erythema. No thyromegaly. CARDIOVASCULAR: S1 and S2 present PULMONARY: Clear to auscultation with no wheezing or rhonchi noted ABDOMEN: soft. Nontender on exam. obese. non-distended, normoactive bowel sounds. No palpable organomegaly. MUSCULOSKELETAL: No joint swelling or deformity. EXTREMITIES: No cyanosis, clubbing, or pedal edema. NEUROLOGICAL: Gross neurological examination did not reveal any focal deficits. Diffuse weakness SKIN: No rashes. Left surgical knee with wound vac and tight seal noted. Assessment: Status post revision of the left knee arthroplasty with polyethylene liner exchange and extensive irrigation, postop day #3 Anemia, postoperative with hemoglobin 6.4 today. Plan is to transfuse 1 unit of blood. 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 Outpatient IV antibiotic therapy with a PICC line that was removed as the PICC line was uncapped for an unknown period of time History of asthma without acute exacerbation History of hypertension, will hold on hydrochlorothiazide as blood pressures are soft and will monitor closely and other appropriate home medications have been resumed Gastroesophageal reflux disease Morbid obesity with a BMI of 45.6 Sleep apnea uses CPAP machine at home Osteoarthritis history of depression GI prophylaxis DVT prophylaxis Full code Plan: Recommend to continue with current medications and management per orthopedic services. Patient appropriate home medications have been resumed. Patient currently has a wound VAC of the left knee. Hemoglobin today postoperatively is 6.4 signs of active bleeding, we'll transfuse 1 unit of prbcs repeat tomorrow. PT/OT following and will work with the patient daily. Patient reports to passing gas and having a bowel movement. Patient is urinating with no difficulties. Also discussed with the patient about increasing activity as tolerated with weightbearing restrictions as recommended by orthopedics. Infe ctious disease following and patient will need PICC line placement and IV antibiotic therapy in the outpatient setting. Case management following and arranging home care and IV abx on DC. Will continue to follow along with orthopedics during hospitalization. Thank you for this consultation. Objective - Vital Signs Vital signs: Vital Signs Temp 98.4 F 04/27/21 07:47 Pulse 59 L 04/27/21 07:47 Resp 16 04/27/21 07:47 BP 97/56 04/27/21 07:47 Pulse Ox 91 L 04/27/21 07:47 Intake & Output 04/26/21 04/27/21 04/27/21 18:59 06:59 18:59 Other: Voiding Method Toilet Toilet # Voids 3 1 - Labs CBC & Chem 7: 04/27/21 05:26 04/26/21 06:13 Labs: Abnormal Lab Results - Last 24 Hours (Table) 04/26/21 04/26/21 Range/Units 06:13 06:13 RBC 2.80 L (3.80-5.40) m/uL Hgb 7.4 L D (11.4-16.0) gm/dL Hct 24.1 L (34.0-46.0) % MCHC 30.9 L (31.0-37.0) g/dL Carbon Dioxide 28.7 H (20.0-27.5) mmol/L Anion Gap 9.30 L (10.00-18.00) mmol/L Calcium 8.5 L (8.7-10.3) mg/dL C-Reactive Protein 5.90 H (0.00-0.80) mg/dL Microbiology - Last 24 Hours (Table) 04/24/21 17:30 Gram Stain - Final Knee - Left Wound Culture - Final 04/24/21 17:30 Gram Stain - Final Knee - Left Wound Culture - Final
[2021-04-27] MEDS: HYDROmorphone 1 MG/ML 1 ML SYRINGE IVP PRN (15:34)
--- NOTE | 2021-04-27 16:17 | P.PN ---
Subjective Progress Note Date: 04/27/21 Principal diagnosis: Left knee septic arthritis Patient is a 50-year-old female with a possible history significant for left knee septic arthritis was recently did have a stage II procedure completed however wound culture were positive for oxacillin sensitive staph epi and gram-negative Pantoea, patient subsequently has been admitted to the hospital this admission with hardware failure status post left knee revision arthroplasty for polyethylene liner exchange on 04/24/21 On today's evaluation that is 04/27/2021, the patient remains to be afebrile, the patient pain to the left knee is currently controlled, the patient denies chest pain shortness of breath or cough no nausea no diarrhea Objective - Vital Signs Vital signs: Vital Signs Temp 98.4 F 04/27/21 07:47 Pulse 87 04/27/21 09:00 Resp 16 04/27/21 07:47 BP 95/63 04/27/21 09:00 Pulse Ox 91 L 04/27/21 07:47 Intake & Output 04/26/21 04/27/21 04/27/21 18:59 06:59 18:59 Other: Voiding Method Toilet Toilet Toilet # Voids 3 1 - Exam GENERAL DESCRIPTION: A middle-age female lying in bed in no distress RESPIRATORY SYSTEM: Unlabored breathing , decreased breath sounds at bases HEART: S1 S2 regular rate and rhythm , ABDOMEN: Soft , no tenderness EXTREMITIES: Left knee is covered with OR dressing no drainage with dressing - Labs CBC & Chem 7: 04/27/21 05:26 04/26/21 06:13 Labs: Abnormal Lab Results - Last 24 Hours (Table) 04/24/21 04/27/21 Range/Units 15:15 05:26 RBC 2.54 L (4.10-5.20) X 10*6/uL Hgb 6.4 L* (12.0-15.0) g/dL Hct 21.7 L (37.2-46.3) % MCH 25.2 L (27.0-32.0) pg MCHC 29.5 L (32.0-37.0) g/dL RDW 15.1 H (11.5-14.5) % Eosinophils # 0.89 H (0.04-0.35) X 10*3/uL Crossmatch See Detail Microbiology - Last 24 Hours (Table) 04/24/21 17:30 Gram Stain - Final Knee - Left Wound Culture - Final 04/24/21 17:30 Gram Stain - Final Knee - Left Wound Culture - Final Assessment and Plan (1) Infection of total left knee replacement Current Visit: No Status: Acute Code(s): T84.54XA - INFECT/INFLM REACTION DUE TO INTERNAL LEFT KNEE PROSTH, INIT SNOMED Code(s): 338478979 Plan: Patient with left knee septic arthritis with a recent stage II procedure history positive culture with oxacillin staph epi and Pantoea admitted to the hospital this time with hardware failure and the patient is status post left knee revision arthroplasty for polyethylene liner exchange on 04/24/21 , OR cultures are negative so far patient continue with cefepime, we will obtain a PICC line and will need to continue with IV cefepime for another 4 weeks on discharge Time with Patient: Less than 30
[2021-04-27] MEDS: LACTATED RINGERS 1,000 ML IV SCH (16:23)
[2021-04-27] MEDS: traZODone HCL 50 MG TAB PO SCH (21:10)
[2021-04-28] MEDS: HYDROcodone/APAP 10-325MG 1 EACH TAB PO PRN ×4 (06:07→19:59)
[2021-04-28] MEDS: CEFEPIME 2 GM in SODIUM CHLORIDE 0.9% 100 ML IVPB SCH ×3 (06:07→22:36)
[2021-04-28] MEDS: ASPIRIN 81 MG PO SCH ×2 (07:29→21:08)
[2021-04-28] MEDS: PANTOPRAZOLE 40 MG TABLET PO SCH (07:29)
[2021-04-28] MEDS: MULTIVITAMINS, THERA 1 EACH TAB PO SCH (07:29)
[2021-04-28] MEDS: LORATADINE 10 MG TAB PO SCH (07:29)
[2021-04-28] MEDS: MONTELUKAST 10 MG TAB PO SCH (07:29)
[2021-04-28] MEDS: DOCUSATE 100 MG CAP PO SCH ×2 (07:29→21:08)
[2021-04-28] MEDS: GABAPENTIN 300 MG CAP PO SCH ×3 (07:29→21:08)
[2021-04-28] MEDS: DESVENLAFAXINE SUCCINATE 50 MG TAB.ER.24H PO SCH (07:30)
[2021-04-28] MEDS: METOPROLOL TARTRATE 25 MG TAB PO SCH (07:30)
[2021-04-28 08:09] LABS: HCT 26.3 % (34.0-46.0); HGB 8.3 gm/dL (11.4-16.0); Hypochromasia Marked; MCHC 31.4 g/dL (31.0-37.0); Mean Platelet Volume 8.1; Platelet Count 238 k/uL (150-450); RBC 3.06 m/uL (3.80-5.40); RDW 14.7 % (11.5-15.5); WBC 5.4 k/uL (3.8-10.6)
[2021-04-28] MEDS: HYDROmorphone 1 MG/ML 1 ML SYRINGE IVP PRN ×4 (08:17→22:40)
--- NOTE | 2021-04-28 10:52 | P.PN ---
Subjective Progress Note Date: 04/28/21 This patient is a 50- year old female who is status-post left knee revision arthroplasty for polyethylene liner exchange on 04/24/[address] Montesinos. Today is post-operative day #4. Patient is seen and examined bedside. Patient's hemoglobin was 6.4 yesterday and is status-post 1 unit of PRBCs. Her hemoglobin is 8.3 today. She states her pain is very well-controlled at this time. No complaints or concerns today. Vital signs stable. Objective - Vital Signs Vital signs: Vital Signs Temp 98.3 F 04/28/21 07:26 Pulse 78 04/28/21 07:26 Resp 18 04/28/21 07:26 BP 109/62 04/28/21 07:26 Pulse Ox 99 04/28/21 07:26 Intake & Output 04/27/21 04/28/21 04/28/21 18:59 06:59 18:59 Intake Total 1909 Balance 1909 Intake: Oral 1600 Blood Product 310 Rc As-1 Unit 310 [id number] Other: Voiding Method Toilet Toilet # Voids 1 - Exam On examination, patient is sitting up in bed in no apparent distress. She is alert and oriented 3. On inspection of her left knee, there is a wound VAC in place. The wound VAC has a good seal at this time. The visible portion of the foot and toes are warm and well perfused with brisk capillary refill distally. Motor and sensory function intact left lower extremity. Calf is soft and non- tender. - Labs CBC & Chem 7: 04/28/21 07:22 04/26/21 06:13 Labs: Abnormal Lab Results - Last 24 Hours (Table) 04/24/21 04/27/21 04/28/21 Range/Units 15:15 05:26 07:22 RBC 2.54 L 3.06 L (4.10-5.20) X 10*6/uL Hgb 6.4 L* 8.3 L (12.0-15.0) g/dL Hct 21.7 L 26.3 L (37.2-46.3) % MCH 25.2 L (27.0-32.0) pg MCHC 29.5 L (32.0-37.0) g/dL RDW 15.1 H (11.5-14.5) % Eosinophils # 0.89 H (0.04-0.35) X 10*3/uL Crossmatch See Detail Assessment and Plan Assessment: Status-post left knee revision arthroplasty for polyethylene liner exchange on 04/24/21. Post-operative day #4. Plan: - Weight-bear as tolerated on the operative leg with a walker. - Physical therapy for gait and balance training. - Keep wound VAC in place at this time. - IV antibiotics per Dr. Brown. Intra-operative cultures pending. - Pain management as needed. - Aspirin 81mg BID for DVT prophylaxis. - Internal medicine for sidra-operative medical management. - Case management consulted for discharge planning. Anticipate discharge home with home health care once PICC line is placed.
--- NOTE | 2021-04-28 13:28 | P.PN ---
Subjective Progress Note Date: 04/28/21 This is a pleasant 50-year-old female who was admitted under orthopedic services and most recently discharged to [facility] for continued IV antibiotics, wound care, physical therapy and is admitted under Dr. Montesinos and patient underwent revision of left knee arthroplasty and polyethylene liner exchange with ex tensive irrigation of the left knee and is postop day #1. Patient does have a past medical history of hypertension we are consulted for medical management. Patient is on hydrochlorothiazide, Norvasc, losartan, and metoprolol and will hold hydrochlorothiazide and losartan for now to monitor closely for postop hypotension. Blood pressures have been soft and will monitor closely and resume appropriate home medications. Patient has 2 Hemovacs and a wound VAC that has been applied to the left knee and there is some extensive left knee swelling noted and patient is using pain medication and ice to alleviate along with elevating. Patient was able to get up and walk with physical therapy today. Patient denies any chest pain, shortness of breath, or palpitations. Patient is afebrile. Patient denies any nausea or vomiting and tolerating diet. 04/26/2021 Patient is seen in follow-up today with no acute overnight issues. Patient is up and walking and has been walking to the bathroom on her own and does have a walker at the bedside. Patient has continued wound VAC and Hemovacs have been discontinued. Patient continues with left knee pain with sharp stabbing sensations at times and pain management per primary service. Patient continues on IV antibiotics and awaiting cultures to finalize to determine discharge antibiotics with ID following closely. Patient is currently on IV cefepime. Patient will need a PICC line prior to discharge. Case management following as well and arranging IV abx and homecare for discharge. 04/27/2021 Patient today follow-up with no acute events overnight. Patient is up and ambulating to bathroom and using a walker at the bedside, however has been primarily bed rest. Wound VAC in place. Patient does complain of pain 9 out of 10 to the left knee continues with a sharp sensation however states that the pain management does help. Does complain of some fatigue today and states all she wants to do is nap. Hemoglobin today is 6.4 we will transfuse 1 unit of blood and repeat tomorrow. has had BM since surgery is passing gas. Cultures are pending, Continues on IV cefepime. 04/28/2021 Patient evaluated today resting in bed there were no acute events overnight. She is postop day #4 revision of the left knee. She is able to ambulate up to the bathroom. She does report bowel movement, is passing gas. Wound VAC in place, intact no air leak. Patient did receive 1 unit of packed red blood cells yesterday with a repeat hemoglobin of 8.3 today. White count 5.4. Vitals stable, she is afebrile, heart rate 70, blood pressure 109/62, and 99% on room air. Continues on antibiotics in the form of IV cefepime with ID consultation. Review of systems: Constitutional: Denies fatigue, fever, or chills Cardiovascular: No reports of chest pain or palpitations Respiratory: No reports of shortness of breath or cough GI: No reports of nausea, vomiting, or diarrhea : No reports of dysuria or retention Neurovascular: No reports of weakness or numbness, reports left knee sharp stabbing sensations at times. All medications have been reviewed PHYSICAL EXAMINATION: GENERAL: The patient is alert and oriented x4, Well developed, well nourished. Morbidly obese HEENT: Pupils are round and equally reacting to light. EOMI. does have scleral icterus. No conjunctival pallor. Normocephalic, atraumatic. No pharyngeal erythema. No thyromegaly. CARDIOVASCULAR: S1 and S2 present PULMONARY: Clear to auscultation with no wheezing or rhonchi noted ABDOMEN: soft. Nontender on exam. obese. non-distended, normoactive bowel sounds. No palpable organomegaly. MUSCULOSKELETAL: No joint swelling or deformity. EXTREMITIES: No cyanosis, clubbing, or pedal edema. NEUROLOGICAL: Gross neurological examination did not reveal any focal deficits. Diffuse weakness SKIN: No rashes. Left surgical knee with wound vac and tight seal noted. 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 Gastroesophageal reflux disease Morbid obesity with a BMI of 45.6 Sleep apnea uses CPAP machine at home Osteoarthritis history of depression GI prophylaxis DVT prophylaxis Full code Plan: Recommend to continue with current medications and management per orthopedic services. Patient appropriate home medications have been resumed. Patient currently has a wound VAC of the left knee. Patient received 1 unit of PRBC's yesterday with a repeat hemoglobin of 8.3 with no signs of acute bleeding. PT/OT following and will work with the patient daily. Patient reports to passing gas and having a bowel movement. Patient is urinating with no difficulties. Also discussed with the patient about increasing activity as tolerated with weig htbearing restrictions as recommended by orthopedics. Infectious disease following and patient will need PICC line placement and IV antibiotic therapy in the outpatient setting. Case management following and arranging home care and IV abx on DC. Will continue to follow along with orthopedics during hospitalization. Thank you for this consultation. Objective - Vital Signs Vital signs: Vital Signs Temp 98.3 F 04/28/21 07:26 Pulse 78 04/28/21 07:26 Resp 18 04/28/21 07:26 BP 109/62 04/28/21 07:26 Pulse Ox 99 04/28/21 07:26 Intake & Output 04/27/21 04/28/21 04/28/21 18:59 06:59 18:59 Intake Total 1909 Balance 1909 Intake: Oral 1600 Blood Product 310 Rc As-1 Unit 310 [id number] Other: Voiding Method Toilet Toilet # Voids 1 - Labs CBC & Chem 7: 04/28/21 07:22 04/26/21 06:13 Labs: Abnormal Lab Results - Last 24 Hours (Table) 04/24/21 04/28/21 Range/Units 15:15 07:22 RBC 3.06 L (3.80-5.40) m/uL Hgb 8.3 L (11.4-16.0) gm/dL Hct 26.3 L (34.0-46.0) % Crossmatch See Detail
[2021-04-28] MEDS: LACTATED RINGERS 1,000 ML IV SCH (15:09)
[2021-04-28] MEDS: CYCLOBENZAPRINE 10 MG TAB PO PRN (19:59)
[2021-04-28] MEDS: traZODone HCL 50 MG TAB PO SCH (21:08)
--- NOTE | 2021-04-28 22:33 | P.PN ---
Subjective Progress Note Date: 04/28/21 Principal diagnosis: Left knee septic arthritis Patient is a 50-year-old female with a possible history significant for left knee septic arthritis was recently did have a stage II procedure completed however wound culture were positive for oxacillin sensitive staph epi and gram-negative Pantoea, patient subsequently has been admitted to the hospital this admission with hardware failure status post left knee revision arthroplasty for polyethylene liner exchange on 04/24/21 On today's evaluation that is 04/28/2021, the patient continues to be afebrile, the patient pain to the left knee is currently controlled, the patient denies chest pain shortness of breath or cough no nausea no diarrhea with antibiotic therapy Objective - Vital Signs Vital signs: Vital Signs Temp 97.5 F L 04/28/21 20:00 Pulse 75 04/28/21 20:00 Resp 16 04/28/21 20:00 BP 121/86 04/28/21 20:00 Pulse Ox 96 04/28/21 20:00 Intake & Output 04/28/21 04/28/21 04/29/21 06:59 18:59 06:59 Intake Total 1200 Balance 1200 Intake: Oral 1200 Other: Voiding Method Toilet # Voids 1 - Exam GENERAL DESCRIPTION: A middle-age female lying in bed in no distress RESPIRATORY SYSTEM: Unlabored breathing , decreased breath sounds at bases HEART: S1 S2 regular rate and rhythm , ABDOMEN: Soft , no tenderness EXTREMITIES: Left knee is covered with OR dressing no drainage with dressing - Labs CBC & Chem 7: 04/28/21 07:22 04/26/21 06:13 Labs: Abnormal Lab Results - Last 24 Hours (Table) 04/28/21 Range/Units 07:22 RBC 3.06 L (3.80-5.40) m/uL Hgb 8.3 L (11.4-16.0) gm/dL Hct 26.3 L (34.0-46.0) % Assessment and Plan (1) Infection of total left knee replacement Current Visit: No Status: Acute Code(s): T84.54XA - INFECT/INFLM REACTION D UE TO INTERNAL LEFT KNEE PROSTH, INIT SNOMED Code(s): 814780581 Plan: Patient with left knee septic arthritis with a recent stage II procedure history positive culture with oxacillin staph epi and Pantoea admitted to the hospital this time with hardware failure and the patient is status post left knee revision arthroplasty for polyethylene liner exchange on 04/24/21 , OR cultures remains to be negative so far patient continue with cefepime, we will order PICC line and continue with IV cefepime for another 4 weeks on discharge Time with Patient: Less than 30
[2021-04-29] MEDS: HYDROcodone/APAP 10-325MG 1 EACH TAB PO PRN ×3 (04:47→16:22)
[2021-04-29] MEDS: CEFEPIME 2 GM in SODIUM CHLORIDE 0.9% 100 ML IVPB SCH ×2 (06:16→14:56)
[2021-04-29 08:15] VITALS: BP 116/73; PULSE 76; RESP 17; TEMP 97.8
[2021-04-29 08:53] LABS: Prothrombin Time 10.6 sec (9.0-12.0)
[2021-04-29] MEDS ORDERED: LIDOCAINE 1% INJ 10MG/ML (20 ML MDV) SQ ONE ×2 (08:56→08:58)
[2021-04-29] MEDS: DESVENLAFAXINE SUCCINATE 50 MG TAB.ER.24H PO SCH (09:35)
[2021-04-29] MEDS: MULTIVITAMINS, THERA 1 EACH TAB PO SCH (09:35)
[2021-04-29] MEDS: DOCUSATE 100 MG CAP PO SCH (09:35)
[2021-04-29] MEDS: GABAPENTIN 300 MG CAP PO SCH ×2 (09:36→16:22)
[2021-04-29] MEDS: METOPROLOL TARTRATE 25 MG TAB PO SCH (09:36)
[2021-04-29] MEDS: PANTOPRAZOLE 40 MG TABLET PO SCH (09:36)
[2021-04-29] MEDS: ASPIRIN 81 MG PO SCH (09:36)
[2021-04-29] MEDS: LORATADINE 10 MG TAB PO SCH (09:36)
[2021-04-29] MEDS: MONTELUKAST 10 MG TAB PO SCH (09:36)
[2021-04-29 10:09] LABS: African American GFR (CKD) 120.7 (60.0-200.0); Anion Gap 10.8 mmol/L (10.00-18.00); BUN/Creat Ratio 22.69 Ratio (12.00-20.00); Blood Urea Nitrogen 14.5 mg/dL (9.0-27.0); Calcium 8.6 mg/dL (8.7-10.3); Carbon Dioxide 25.9 mmol/L (20.0-27.5); Non-African American GFR(CKD) 104.1 (60.0-200.0); Potassium 3.9 mmol/L (3.5-5.5)
--- NOTE | 2021-04-29 10:47 | IR ---
EXAMINATION TYPE: IR cvc insert non tunneled DATE OF EXAM: 04/29/2021 COMPARISON: NONE CLINICAL HISTORY: Infection Needs long-term intravenous access for antibiotics. PROCEDURE: Hand hygiene obtained with soap and water and alcohol-based hand rub. After informed consent, the skin overlying the left basilic vein was localized with ultrasound and no christian to be compressible and patent. An ultrasound image was obtained and submitted on the patient's c sharpe. The overlying skin was prepped and draped and Lidocaine was used for local anesthesia. A skin anthony was made with a scalpel. Access was gained to the vein under ultrasound guidance with a 21 gau ge needle and a 0.018 inch wire was advanced. Access site was dilated with Peel-Away sheath and cath eter tailored to the appropriate length and advanced such that the distal tip is at the cavoatrial ju nction. Spot image was obtained verifying placement. Catheter was fixed to the skin and a sterile d ressing was placed following hemostasis. Catheter was aspirated and flushed with saline. Patient wa s discharged in stable condition without complication. Maximal barrier technique is utilized. Ultras ound image is documented on the chart. Ultrasound used with sterile technique. Fluoro time and fluoroscopic images submitted to document procedure: 157 intraoperative C-arm images, 0.7 minutes fluoroscopy time IMPRESSION: STATUS POST ULTRASOUND AND FLUOROSCOPIC GUIDED PICC LINE PLACEMENT, READY FOR USE. THIS PROCEDURE WAS PERFORMED BY THE UNDERSIGNED.
[2021-04-29 11:15] LABS: Basophils # (A) 0.04 X 10*3/uL (0.00-0.10); Basophils % (A) 0.7 %; Eosinophils # (A) 1.22 X 10*3/uL (0.04-0.35); Eosinophils % (A) 20.8 %; HCT 24.5 % (37.2-46.3); HGB 7.1 g/dL (12.0-15.0); Immature Grans, Automated 0.5 %; Lymphocytes # (A) 1.81 X 10*3/uL (0.90-5.00); Lymphocytes % (A) 30.8 %; MCH 25.2 pg (27.0-32.0); MCV 86.9 fL (80.0-97.0); Mean Platelet Volume 11.6 fL (9.5-12.2); Monocytes # (A) 0.44 X 10*3/uL (0.20-1.00); Monocytes % (A) 7.5 %; NRBC Per 100 WBC 0 /100 WBCS (0.0-0.0); Neutrophils # (A) 2.33 X 10*3/uL (1.80-7.70); Neutrophils % (A) 39.7 %; Platelet Count 237 X 10*3/uL (140-440); RBC 2.82 X 10*6/uL (4.10-5.20); WBC 5.87 X 10*3/uL (4.50-10.00)
--- NOTE | 2021-04-29 12:23 | P.DS ---
Providers Date of admission: 04/24/21 13:46 Expected date of discharge: 04/29/21 Attending physician: Blue Montesinos Consults: 04/24/21 17:42 Consult Physician Routine Consulting Provider: Rosalia Harden Consult Reason/Comments: medical management Do you want consulting provider notified?: Yes 04/24/21 17:45 Consult Physician Routine Consulting Provider: Kayla Brown Consult Reason/Comments: antibiotic recommendations Do you want consulting provider notified?: Yes Primary care physician: [facility] Course: This is 50- year old female who has been followed by Dr. Montesinos for continued complaints of left knee pain following a total knee arthroplasty in July 2020 at an outside hospital. Patient elected to undergo a two-stage left total knee arthroplasty revision. Patient underwent stage I revision total left knee with articulating spacer on 01/11/[address] Montesinos. Patient received 6 weeks of IV antibiotics, a 2 week holiday off antibodies, an aspiration of her knee which is not concerning for infection. She underwent an implantation approximately 2 weeks ago, her intra-op cultures also came back positive. At her first postoperative appointment, the polyethylene liner had displaced from the tibial baseplate. Surgery was recommended. Patient underwent a left knee revision arthroplasty with polyethylene liner exchange with extensive irrigation debridement of her left knee on 04/24/21. The procedure was performed without complication or sequelae. The patient is doing fairly well postoperatively. Vital signs and labs are stable on post- operative day #5. Intra-operative cultures currently negative.. Dr. Brown infectious disease was consulted to manage antibiotics and a new PICC line was placed today. Patient was examined bedside today. Patient states she is overall doing well and her pain is controlled at this time. Patient is ambulate with a walker with minimal assistance. She is tolerating her diet well. She is voiding without issue. She has had multiple problems postoperatively. She feels comfortable being discharged home with home health care today. Patient denies chest pain, shortness of breath, vomiting, fevers, chills. On examination, the patient is sitting up in the bed in no apparent distress. She is alert and orientated 3. On inspection of the left knee, there is a wound vac in place which has a good seal at this time. Motor and sensory function intact of the left lower extremity. The left lower extremity is warm and well- perfused. The calves are soft and non-tender to palpation bilaterally, no evidence of DVT. Patient is discharged home with home health care today in good condition, pending medical clearance. her hemoglobin is 7.1 today, although per internal medicine she is cleared for discharge and they will obtain outpatient labs. Patient will follow-up with Dr. Montesinos in the office ine one week. Please see med rec for accurate list of discharge medication. Plan - Discharge Summary Discharge Rx Participant: Yes New Discharge Prescriptions: New Docusate [Colace] 100 mg PO BID #60 capsule HYDROcodone/APAP 10-325MG [[place] 10-325] 1 tab PO Q4HR PRN 7 Days #40 tab PRN Reason: Pain Calcium Carbonate [Tums] 500 mg PO QID PRN PRN Reason: Heartburn Aspirin 81 mg PO BID 30 Days #60 tab Continue Cetirizine HCl [Zyrtec] 10 mg PO DAILY amLODIPine BESYLATE 5 mg PO QAM Multivitamins, Thera [Multivitamin (formulary)] 1 tab PO DAILY [place]-3/Dha/Epa/Fish Oil [Fish Oil 500 mg Softgel] 1 each PO DAILY Omeprazole [PriLOSEC] 20 mg PO AC-BRKFST traZODone HCL 50 mg PO HS Promethazine [Phenergan] 25 mg PO Q6HR PRN PRN Reason: Nausea Metoprolol Tartrate [Lopressor] 25 mg PO QAM Montelukast Sodium [Singulair] 10 mg PO DAILY Desvenlafaxine Succinate [Pristiq] 100 mg PO QAM Mupirocin [Mupirocin 2% with applicator] 1 applic NASAL TID Acetaminophen Tab [Tylenol] 650 mg PO Q6HR PRN tab PRN Reason: Fever And/ Or Pain Aspirin 81 mg PO BID 30 Days #60 tab Docusate [Colace] 100 mg PO BID #60 capsule HYDROcodone/APAP 10-325MG [[place] 10-325] 1 tab PO Q6HR PRN 7 Days #28 tab PRN Reason: Pain Gabapentin 300 mg PO TID #12 cap S.boulardii/B.coagulans/Fos [Diff-Stat 471 mg Capsule] 2 cap PO BID Micatin 2% Cream TOPICAL DIRECTED PRN PRN Reason: labial irritation Discontinued Losartan Potassium 100 mg PO QAM hydroCHLOROthiazide [Hydrodiuril] 25 mg PO DAILY No Action Cefepime [Maxipime] 2 gm IVPB Q8H 42 Days #126 each Discharge Medication List Cetirizine HCl [Zyrtec] 10 mg PO DAILY 01/08/21 [History] Desvenlafaxine Succinate [Pristiq] 100 mg PO QAM 01/08/21 [History] Montelukast Sodium [Singulair] 10 mg PO DAILY 01/08/21 [History] Mupirocin [Mupirocin 2% with applicator] 1 applic NASAL TID 01/08/21 [History] amLODIPine BESYLATE 5 mg PO QAM 01/08/21 [History] Acetaminophen Tab [Tylenol] 650 mg PO Q6HR PRN tab 01/17/21 [Rx] Multivitamins, Thera [Multivitamin (formulary)] 1 tab PO DAILY 04/01/21 [History] [place]-3/Dha/Epa/Fish Oil [Fish Oil 500 mg Softgel] 1 each PO DAILY 04/01/21 [History] Aspirin 81 mg PO BID 30 Days #60 tab 04/09/21 [Rx] Docusate [Colace] 100 mg PO BID #60 capsule 04/09/21 [Rx] Gabapentin 300 mg PO TID #12 cap 04/09/21 [Rx] HYDROcodone/APAP 10-325MG [[place] 10-325] 1 tab PO Q6HR PRN 7 Days #28 tab 04/09/21 [Rx] Cefepime [Maxipime] 2 gm IVPB Q8H 42 Days #126 each 04/10/21 [Rx] Metoprolol Tartrate [Lopressor] 25 mg PO QAM 04/23/21 [History] Micatin 2% Cream TOPICAL DIRECTED PRN 04/23/21 [History] Omeprazole [PriLOSEC] 20 mg PO AC-BRKFST 04/23/21 [History] Promethazine [Phenergan] 25 mg PO Q6HR PRN 04/23/21 [History] S.boulardii/B.coagulans/Fos [Diff-Stat 471 mg Capsule] 2 cap PO BID 04/23/21 [History] traZODone HCL 50 mg PO HS 04/23/21 [History] Aspirin 81 mg PO BID 30 Days #60 tab 04/29/21 [Rx] Calcium Carbonate [Tums] 500 mg PO QID PRN 04/29/21 [Rx] Docusate [Colace] 100 mg PO BID #60 capsule 04/29/21 [Rx] HYDROcodone/APAP 10-325MG [[place] 10-325] 1 tab PO Q4HR PRN 7 Days #40 tab 04/29/21 [Rx] Follow up Appointment(s)/Referral(s): Bethany Walls DO [Primary Care Provider] - 1 Week [facility], [NON-STAFF] - ([facility] will call you to set up your outpatient nursing and physical therapy visits. The first visit will be on: . They will begin IV antibiotic teaching then. ) [facility], [REFERRING] - As Needed ([facility] will deliver IV antibiotics and supplies to your home on: . They will call prior to delivery. ) Kayla Brown MD [STAFF PHYSICIAN] - 1 Week Ambulatory/Diagnostic Orders: Complete Blood Count w/diff [LAB.AMB] Time Frame: 2 Days, Location: None Selected Discharge Disposition: HOME WITH HOME HEALTH SERVICES
[2021-04-29] MEDS: LACTATED RINGERS 1,000 ML IV SCH (12:27)
--- NOTE | 2021-04-29 17:51 | P.PN ---
Subjective Progress Note Date: 04/29/21 - Reason for Consult Consult date: 04/25/21 Medical management, hypertension history - Chief Complaint Left knee revision - History of Present Illness This is a pleasant 50-year-old female who was admitted under orthopedic services and most recently discharged to [facility] for continued IV antibiotics, wound care, ph ysical therapy and is admitted under Dr. Montesinos and patient underwent revision of left knee arthroplasty and polyethylene liner exchange with extensive irrigation of the left knee and is postop day #1. Patient does have a past medical history of hypertension we are consulted for medical management. Patient is on hydrochlorothiazide, Norvasc, losartan, and metoprolol and will hold hydrochlorothiazide and losartan for now to monitor closely for postop hypotension. Blood pressures have been soft and will monitor closely and resume appropriate home medications. Patient has 2 Hemovacs and a wound VAC that has been applied to the left knee and there is some extensive left knee swelling noted and patient is using pain medication and ice to alleviate along with elevating. Patient was able to get up and walk with physical therapy today. Patient denies any chest pain, shortness of breath, or palpitations. Patient is afebrile. Patient denies any nausea or vomiting and tolerating diet. 04/26/2021 Patient is seen in follow-up today with no acute overnight issues. Patient is up and walking and has been walking to the bathroom on her own and does have a walker at the bedside. Patient has continued wound VAC and Hemovacs have been discontinued. Patient continues with left knee pain with sharp stabbing sensations at times and pain management per primary service. Patient continues on IV antibiotics and awaiting cultures to finalize to determine discharge antibiotics with ID following closely. Patient is currently on IV cefepime. Patient will need a PICC line prior to discharge. Case management following as well and arranging IV abx and homecare for discharge. 04/27/2021 Patient today follow-up with no acute events overnight. Patient is up and ambulating to bathroom and using a walker at the bedside, however has been primarily bed rest. Wound VAC in place. Patient does complain of pain 9 out of 10 to the left knee continues with a sharp sensation however states that the pain management does help. Does complain of some fatigue today and states all she wants to do is nap. Hemoglobin today is 6.4 we will transfuse 1 unit of blood and repeat tomorrow. has had BM since surgery is passing gas. Cultures are pending, Continues on IV cefepime. 04/28/2021 Patient evaluated today resting in bed there were no acute events overnight. She is postop day #4 revision of the left knee. She is able to ambulate up to the bathroom. She does report bowel movement, is passing gas. Wound VAC in place, intact no air leak. Patient did receive 1 unit of packed red blood cells yesterday with a repeat hemoglobin of 8.3 today. White count 5.4. Vitals stable, she is afebrile, heart rate 70, blood pressure 109/62, and 99% on room air. Continues on antibiotics in the form of IV cefepime with ID consultation. 04/29/2021 Patient seen this morning and anticipates discharge today to home with home care by orthopedics. Patient hemoglobin this morning was 7.1 after it being 8.3 yesterday. Patient will follow up closely with repeat labs in 2 days outpatient. Encouraged oral intake and continued activity as tolerated and instructed by orthopedics. Patient blood pressure are on the lower side although normal and will recommend to hold losartan for now and monitor blood pressure closely. Patient to continue other blood pressure medications. Patient received a PICC l ine today for continued IV antibiotic therapy on discharge. Review of systems: Constitutional: No reports of fatigue, fever, or chills Cardiovascular: No reports of chest pain or palpitations Respiratory: No reports of shortness of breath or cough GI: No reports of nausea, vomiting, or diarrhea : No reports of dysuria or retention Neurovascular: No reports of weakness or numbness, reports left knee sharp stabbing sensations at times. All medications have been reviewed PHYSICAL EXAMINATION: GENERAL: The patient is alert and oriented x4, Well developed, well nourished. Morbidly obese HEENT: Pupils are round and equally reacting to light. EOMI. does have scleral icterus. No conjunctival pallor. Normocephalic, atraumatic. No pharyngeal erythema. No thyromegaly. CARDIOVASCULAR: S1 and S2 present PULMONARY: Clear to auscultation with no wheezing or rhonchi noted ABDOMEN: soft. Nontender on exam. obese. non-distended, normoactive bowel sounds. No palpable organomegaly. MUSCULOSKELETAL: No joint swelling or deformity. EXTREMITIES: No cyanosis, clubbing, or pedal edema. NEUROLOGICAL: Gross neurological examination did not reveal any focal deficits. SKIN: No rashes. Left surgical knee with wound vac and tight seal noted. 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 Gastroesophageal reflux disease Morbid obesity with a BMI of 45.6 Sleep apnea uses CPAP machine at home Osteoarthritis history of depression GI prophylaxis DVT prophylaxis Full code Plan: Recommend to continue with current medications and management per orthopedic services. Patient appropriate home medications have been resumed. Patient currently has a wound VAC of the left knee. Patient repeat hemoglobin today is 7.1 with no signs of acute bleeding. Prescription provided for follow up labs in 2 days. Patient reports to passing gas and having a bowel movement. Patient is urinating with no difficulties. Also discussed with the patient about increasing activity as tolerated with weightbearing restrictions as recommended by orthopedics. Infectious disease following and patient received PICC line today for IV antibiotic therapy in the outpatient setting. Case management following and arranging home care and IV abx today. Will continue to follow along with orthopedics during hospitalization. Thank you for this consultation. Patient will be discharged today. The impression and plan of care has been dictated by Aleah Colvin, nurse practitioner as directed. Dr. Efrain MD I have performed a history and examination and MDM of this patient, discussed the same with the dictator, and agree with the dictator's assessment and plan as written ,documented as a scribe. Based on total visit time, I have performed more than 50% of the visit. Any additional findings or plans will be noted. Objective - Vital Signs Vital signs: Vital Signs Temp 97.8 F 04/29/21 08:00 Pulse 76 04/29/21 08:00 Resp 17 04/29/21 08:00 BP 116/73 04/29/21 08:00 Pulse Ox 98 04/29/21 08:00 Intake & Output 04/28/21 04/29/21 04/29/21 18:59 06:59 18:59 Intake Total 1200 100 Balance 1200 100 Intake: Intake, IV Titration 100 Amount Cefepime 2 gm In Sodium 100 Chloride 0.9% 100 ml @ 25 mls/hr IVPB Q8H [facility] Rx#: [id number] Oral 1200 Other: Voiding Method Toilet # Voids 2 - Labs CBC & Chem 7: 04/29/21 04:40 04/29/21 04:40
== END 2021-04-29 17:15 | disposition home health service (06) | DRG 486 ==
LOC: 2ORMAIN 13:46 → EDSTATUS 16:00 → 4SSUR 17:52
PROVIDERS: ADMIT Orthopaedic Surgery; ATTEND Orthopaedic Surgery
PROC: 0SBD0ZZ Excision of Left Knee Joint, Open Approach (ICD-10-PCS; 2021-04-24)
PROC: 0SUW09Z Supplement Left Knee Joint, Tibial Surface with Liner, Open Approach (ICD-10-PCS; 2021-04-24)
PROC: 3E1U38Z Irrigation of Joints using Irrigating Substance, Percutaneous Approach (ICD-10-PCS; 2021-04-24)
PROC: 2W1MX6Z Compression of Left Lower Extremity using Pressure Dressing (ICD-10-PCS; 2021-04-24)
PROC: 0SPD09Z Removal of Liner from Left Knee Joint, Open Approach (ICD-10-PCS; principal; 2021-04-24 16:00)
PROC: 30233N1 Transfusion of Nonautologous Red Blood Cells into Peripheral Vein, Percutaneous Approach (ICD-10-PCS; 2021-04-27)
PROC: 02HV33Z Insertion of Infusion Device into Superior Vena Cava, Percutaneous Approach (ICD-10-PCS; 2021-04-29)
DX: T84.54XA Infection and inflammatory reaction due to internal left knee prosthesis, initial encounter (principal); D62 Acute posthemorrhagic anemia; Z68.42 Body mass index [BMI] 45.0-49.9, adult; M00.262 Other streptococcal arthritis, left knee; T84.023A Instability of internal left knee prosthesis, initial encounter; Y83.8 Other surgical procedures as the cause of abnormal reaction of the patient, or of later complication, without mention of misadventure at the time of the procedure; B95.4 Other streptococcus as the cause of diseases classified elsewhere; E66.01 Morbid (severe) obesity due to excess calories; G47.30 Sleep apnea, unspecified; H91.90 Unspecified hearing loss, unspecified ear; I10 Essential (primary) hypertension; J45.909 Unspecified asthma, uncomplicated; K21.9 Gastro-esophageal reflux disease without esophagitis; Z20.822 Contact with and (suspected) exposure to COVID-19; M19.90 Unspecified osteoarthritis, unspecified site; Z79.82 Long term (current) use of aspirin; Z79.899 Other long term (current) drug therapy; Z96.653 Presence of artificial knee joint, bilateral
CPT/HCPCS: 36573; 80048; 81025; 83615; 85025; 85027; 85610; 86140; 86850; 86900; 86901; 86920; 87070; 87205; 87635

== ENCOUNTER → 2021-05-13 | Outpatient (CLI) | payer OTHER ==
--- NOTE | 2021-05-13 16:13 | US ---
EXAMINATION TYPE: US venous doppler duplex LE LT DATE OF EXAM: 05/13/2021 3:45 PM COMPARISON: NONE CLINICAL HISTORY: 50-year-old female I80.9 PHLEBITIS AND THROMBOPHLEBITIS. Left lateral knee swelling and pain post left knee replacement; patient has PICC for antibiotic therapy. SIDE PERFORMED: Left TECHNIQUE: The lower extremity deep venous system is examined utilizing real time linear array sonog geno with graded compression, doppler sonography and color-flow sonography. FINDINGS: VESSELS IMAGED: Common Femoral Vein Deep Femoral Vein Greater Saphenous Vein * Femoral Vein Popliteal Vein Small Saphenous Vein * Proximal Calf Veins (* superficial vessels) Left Leg: Negative for DVT. At left lateral knee swelling, complex fluid area is seen = 12.7 x 4.7 x 3.3cm. Left ankle edema ward justyn are seen. IMPRESSION: 1. No evidence for DVT within the left lower extremity imaged from the groin to the upper calf. 2. Complex fluid within the soft tissues lateral to the left knee could represent complex postoperati ve seroma or hematoma or complex ganglion cyst measuring up to 12.7 x 4.7 cm.
== END | disposition home or self-care (01) ==
LOC: RADUSWWP 15:11
PROVIDERS: ATTEND Orthopaedic Surgery
DX: M25.562 Pain in left knee (principal); M79.89 Other specified soft tissue disorders; Z96.652 Presence of left artificial knee joint